=== PATIENT | male | born 1940 | race Caucasian/White ===

== ENCOUNTER 2017-10-22 07:37 | Inpatient (IN) | payer MEDICARE, OTHER, SELFPAY ==
[2017-10-22] VITALS (17 sets, daily range): BP systolic 111–205; BP diastolic 83–122; PULSE 67–85; RESP 14–18; TEMP 35.6–36.6; O2SAT 94–98; BMI 25.6; BMI 24.5; BMI 24.6
--- NOTE | 2017-10-22 07:53 | CT_ITS ---
STUDY: CT BRAIN WITHOUT CONTRAST REASON FOR EXAM: Male, 77 years old. Weakness. Hypertension. RADIATION DOSAGE (If Supplied By Facility): CTDIvol = ( 44.99 ) mGy, DLP = ( 812.98 ) mGycm TECHNIQUE: Transaxial CT imaging of the brain was performed without administration of intravenous contrast material. Individualized dose optimization techniques were used for this CT. COMPARISON: None. FINDINGS: Normal soft tissue structures. Normal calvarium. There is mild cerebral atrophy with widening of the extra-axial spaces and ventricular dilatation. There are areas of decreased attenuation within the white matter tracts of the supratentorial brain, consistent with microvascular disease changes. Normal basal ganglia and thalami. Normal brainstem. There is mild cerebellar atrophy. There is no intracranial hemorrhage. There are no findings of an acute ischemic infarction. Atherosclerotic calcification of the cavernous portions of the internal carotid arteries bilaterally. Normal visualized paranasal sinuses. CT/Brain/Head without Contrast IMPRESSION: Chronic involutional changes of the brain. Electronically Signed: Tom Garcia MD at 8:42 EDT Tel [phone], Service support ,
--- NOTE | 2017-10-22 07:53 | EKG12_ITS ---
Test Reason : Blood Pressure : / mmHG Vent. Rate : 084 BPM Atrial Rate : 084 BPM P-R Int : 134 ms QRS Dur : 090 ms QT Int : 408 ms P-R-T Axes : 029 019 000 degrees QTc Int : 482 ms Normal sinus rhythm ST & T wave abnormality, consider inferior ischemia Abnormal ECG Confirmed by MARY RENEE, SHARRON ([id number]), rewrite editor PIYUSH ALONSO ([id number] on 10/23/2017 1:51:23 PM Referred By: MARITZA Confirmed By:SHARRON HERNANDEZ MD
--- NOTE | 2017-10-22 07:58 | NURSING ---
NO OLD EKGS
[2017-10-22 08:00] LABS: Bedside Glucose 155 mg/dL (70-110)
[2017-10-22 08:14] LABS: Absolute Lymphocyte Count 0.79 X10^3/ul (0.83-4.51); Absolute Neutrophil Count 8.2 X10^3/uL (2.0-7.7); Basophil# 0.03 X10^3/uL; Basophil% 0.3 % (0-1); Eosinophil# 0.03 X10^3/uL; Eosinophils% 0.3 % (0-5); Hematocrit 52.8 % (40-54); Lymphocyte # 0.79 X10^3/ul (4.0); Mean Corp Hgb Conc 34.7 g/gl (32-36); Mean Corpuscular Hgb 32.5 pg (27.0-32.0); Mean Corpuscular Volume 93.8 fL (80-94); Mean Platelet Vol. 9.6 fl (6.2-12.0); Monocyte# 0.71 X10^3/uL; Monocyte% 7.2 % (0-10); Neutrophil # 8.22 X10^3/uL (2.7-7.7); Neutrophil % 83.8 % (47-70); Platelet Count 245 K/mm3 (150-450); RBC Distribution Width CV 13.1 % (11.6-14.6); RBC Distribution Width SD 44.7 fl (35.1-43.9); Red Blood Count 5.63 M/mm3 (4.6-6.2); White Blood Count 9.8 K/mm3 (4.4-11.0)
[2017-10-22 08:15] LABS: POSITIVE COUNT NO; POSITIVE DIFFERENTIAL NO; POSITIVE MORPHOLOGY NO
[2017-10-22 08:17] LABS: Hemoglobin 18.3 g/dl (13.0-16.5)
[2017-10-22 08:18] LABS: Prothrombin Time (Protime)PT. 13.4 SECONDS (11.7-14.9)
[2017-10-22 08:19] LABS: Partial Thromboplast Time 24.1 Seconds (24.1-36.2)
--- NOTE | 2017-10-22 08:20 | RAD_ITS ---
STUDY: X-RAY CHEST REASON FOR EXAM: Male, 77 years old. Hypertension. Neurological symptoms. TECHNIQUE: Single AP portable view of the chest. COMPARISON: None. FINDINGS: EKG electrodes are seen. Mild increased markings at the lung bases slightly worse on the left side suggestive of either linear atelectasis and/or scarring. Calcified granulomas. Mild degree of pleural thickening along the lateral aspects of both hemithoraces. This may represent changes secondary to prior trauma and healed bilateral rib fractures. There is moderate cardiac enlargement. Normal mediastinum and elizabeth. Normal visualized pulmonary arteries. There is atherosclerotic calcification of the aortic arch with tortuosity. Normal visualized thoracic spine. Healed bilateral rib fractures. There is no demonstrated abnormality of the visualized soft tissue structures of the upper abdomen. RAD/Chest 1 View IMPRESSION: Cardiomegaly. Mild increased markings at the lung bases suggestive of linear atelectasis and/or scarring. Electronically Signed: Tom Garcia MD at 8:43 EDT Tel [phone], Service support ,
--- NOTE | 2017-10-22 08:20 | ED.VISSUMM ---
- ER Visit Summary Date of Service: 10/22/17 Chief Complaint: Trouble walking History of Present Illness: The patient is a 77 M who has history of hypertension was brought to the emergency department because of trouble walking. He saw a mid-level yesterday for low back pain. His blood pressure was elevated at that time. He does have history of hypertension. He states he is compliant with his medication. He denies any paresthesia, anesthesia motor weakness upper lower extremity. He presently has no back pain. The back pain is positional. He denies headache, blurred vision, loss of vision or double vision. He denies trouble with speech or swallowing. He denies chest pain, dyspnea on exertion, orthopnea or PND. He denies cough or shortness of breath at rest. He denies nausea, vomiting or diarrhea. He denies dysuria, frequency, urgency or hematuria. He denies prior history of stroke. Please read written note for complete detail Physical Examination: Vital signs noted and remarkable for blood pressure 244/122. Head is atraumatic normocephalic. Pupils are equal round reactive. Extraocular muscles are intact. TMs are pearly white with landmarks noted. Nares patent with no drainage. Posterior pharynx without erythema or exudate. Uvula is midline. There is no dysphonia or dysphasia. Trachea is midline. There is no stridor with auscultation of the neck. Heart is regular without murmur, gallop or rub. S1 and S2 are normal. Lungs are clear to auscultation with good movement of air bilaterally. Abdomen is soft and nontender. There is no guarding or peritoneal findings. There is no palpable pulsatile mass. There is no abdominal bruit. Agustin sign is negative. Negative Rovsing sign. There is no evidence of inguinal or umbilical hernia. Upper distal and lower distal pulses are palpable and symmetric. He is alert and oriented ?3. Motor deficit noted left upper and left lower extremity. Finger-nose to finger was abnormal on the left and out of proportion to the amount of weakness he is experiencing. Sensation is intact. There is no clonus or Babinski sign. Cranial 2 through 12 are intact. He does slur his words occasionally. The registration person has known him for some time and states that is abnormal. He apparently had problem with fluency for some time. NIH is 4. Test Results: EKG sinus rhythm rate of [address]-T wave changes noted. CBC is remarkable for H&H of 18.3 and 52.8. B GT was 155. CT of the head without contrast reveals no acute pathology. Emergency Department Course and Treatment: Stroke order set was initiated. Chest x-ray was obtained to evaluate the mediastinum. Patient's back pain is atypical and not suggestive of aortic dissection. If blood pressure remains elevated will treat with labetalol. Patient and daughter were informed he would need admission and further workup. Treatment Plan: PCU for further testing and monitoring Disposition: 23 hour observation Impression: 1. Right hemispheric stroke 2. Hypertensive urgency This note was generated with [employer] dictation software. It may contain incorrect words, spelling, and punctuation that were not noted in review of the chart prior to signing ED Disposition - Plan for ED Patient: Disposition: Acute Care Hospital [facility] Chief Complaint: Neuro S/Sx
[2017-10-22 08:28] LABS: Anion Gap 10 (5-15); BUN 8 mg/dL (7-18); BUN/Creat Ratio 8.7 RATIO (10-20); Calcium,Total 9.1 mg/dL (8.5-10.1); Chloride 101 mmol/L (98-107); Creatinine, Serum 0.92 mg/dL (0.70-1.30); EST Glomerular Filtration Rate 85 mL/min (>60); Est Glom Filt Rate - Afr Amer 103 mL/min (>60); Estimated Creatinine Clearance 74.98 ml/min; Glucose 151 mg/dL (74-106); Potassium 3.6 mmol/L (3.5-5.1); Sodium Level 138 mmol/L (136-145)
--- NOTE | 2017-10-22 09:12 | NURSING ---
PCU CVA, HYPERTENSION KOTSONIS OBS
[2017-10-22] MEDS: 0.9% Normal Saline 1,000 ML 100 ML IV (12:14)
[2017-10-22] MEDS: Enoxaparin 40 MG/0.4 ML Syringe SC (12:14)
--- NOTE | 2017-10-22 14:41 | CT_ITS ---
STUDY: CTA NECK WITH CONTRAST REASON FOR EXAM: Male, 77 years old. CVA RADIATION DOSAGE (If Supplied By Facility): CTDIvol = ( 22.08 ) mGy, DLP = ( 701.12 ) mGycm TECHNIQUE: CT angiography with multi-detector data acquisition was performed from the aortic arch to the skull base following intravenous administration of 100 ml of Isovue 370 contrast. MIP images were reconstructed from the axial data set. Post-processing of the angiographic images was performed, with multiplanar reformation and 3D reconstruction. Individualized dose optimization techniques were used for this CT. COMPARISON: CT brain from today FINDINGS: AORTIC ARCH: Normal visualized aortic arch. Normal origins of the brachiocephalic, left common carotid, and left subclavian arteries. RIGHT CAROTID ARTERIES: Normal right common carotid artery (CCA). There is moderate atherosclerotic plaque formation with moderate narrowing of the right carotid bulb. There is mild atherosclerotic plaque formation of the origin of the right internal carotid artery with less than 50% cross sectional diameter stenosis. Normal visualized cervical portion of the right internal carotid artery. Normal origin of the right external carotid artery (ECA). LEFT CAROTID ARTERIES: Normal left common carotid artery (CCA). There is moderate atherosclerotic plaque formation with moderate narrowing of the carotid bulb. There is mild atherosclerotic plaque formation of the origin of the left internal carotid artery with less than 50% cross sectional diameter stenosis. Normal visualized cervical portion of the left internal carotid artery. Normal origin of the left external carotid artery (ECA). VERTEBRAL ARTERIES: The v1 segment of the right vertebral artery is occluded or nearly occluded. It appears to reconstitute somewhat in the V2 segment, with some flow noted in the v3 and V4 segments. There is focal calcific and mixed plaque at the origin of the left vertebral artery causing moderate stenosis. The remainder of the left vertebral artery appears normal. CT/CTA Neck W/WO Contrast IMPRESSION: Less than 50% stenosis proximal internal carotid arteries bilaterally due to mixed plaque. Occlusion or near occlusion proximal vertebral artery on the right. Moderate focal stenosis at the origin of the left vertebral artery. Electronically Signed: Bhavin Jonas MD at 16:12 EDT , Service support ,
--- NOTE | 2017-10-22 14:47 | PCM.HP.STD ---
Problem List (1) HTN (hypertension) Status: Chronic (2) CVA (cerebral vascular accident) Status: Acute History of Present Illness Date of Admission: 10/22/17 Chief Complaint: Numbness, slurred speech and weakness The patient is a 77 year old M with a h/o HTN on norvasc who follows with a PCP every 6 months presenting with over a 12 hour h/o right hand numbness and b/l LE weakness. Prior to this episode he had been in pretty good health only taking norvasc. Also his daughter had noticed some slurred speech this morning over the phone though admits that he is back to his baseline this afternoon. Also connie actually saw his doctor the day before his admission for paraspinal thoracic pain without radiation. In the ER. NIH was [address] brain was negative. He was admitted to r/o stroke. Past Medical History Past Medical History (Chronic Problems): Chronic Problems HTN (hypertension) (Chronic) Allergies No Known Allergies Allergy (Verified 10/22/17 07:40) Home Medications: Ambulatory Orders Medication Instructions Recorded Amlodipine Besylate [Amlodipine 2.5 mg PO DAILY 05/07/16 Besylate] Surgical History: no surgical history Lives: Alone Smoking Status: Former smoker Alcohol: Occasional - 6 beers daily Drugs: None - *Family History Maternal History Items: Heart Disease Paternal History Items: Heart Disease Review of Systems Constitutional: Denies: Chills, Fever, Weight Change HEENT: Reports: - - Choking while eating Cardiovascular: Denies: Chest Pain, Palpitations Respiratory: Denies: Cough, Shortness of breath at rest, Sputum production Gastrointestinal: Denies: Abdominal Pain, Nausea, Vomiting Genitourinary: Denies: Dysuria Musculoskeletal: Denies: Joint Pain, Joint Tenderness Skin: Denies: Rash, Wounds Neurological: Reports: Numbness, - - b/l LE weakness Psychiatric: Denies: Anxiety, Depression Hematologic/ Lymphatic: Denies: Easy Bruising, Easy Bleeding VTE Information - Inpt Only VTE Present on Admission: No Patient Problems: Active and Suspected Problems CVA (cerebral vascular accident) (Acute) - Physical Exam General: Alert, Oriented x3, Cooperative, No apparent distress HEENT: Atraumatic, EOMI, Normocephalic Oral: Moist Mucosa Neck: Supple, No JVD, Negative Carotid Bruits Lungs: Clear to auscultation, Normal air movement, No rhonchi, No wheeze, No rales Cardiovascular: Regular rate, Regular Rhythm, Normal S1, Normal S2, No murmurs Abdomen: Soft, Non Tender, Non-Distended, No Hepato-splenomegaly Extremities: No edema, Capillary Refill Less than 3 Seconds Skin: No rashes, No breakdown Musculoskeletal: No Tenderness to Palpation of Joints or Extremities Neurological: Cranial nerves II-XII grossly intact, Sensory exam intact to light touch and pain, - - 5/5 in his UE, 4-/5 on both hip flexors, not ataxic, Psych/Mental Status: Normal Affect, Appropriate Vital Signs Temp Pulse Resp BP Pulse Ox 97.6 F L 69 18 183/97 H 94 10/22/17 13:15 10/22/17 13:15 10/22/17 13:15 10/22/17 13:15 10/22/17 13:15 Oxygen Flow Rate (L/min) 2 Oxygen Delivery Method Room Air Weight: 186 lb 4.65 oz Body Mass Index (BMI) 24.5 Assessment/Plan All Active Problems CVA (cerebral vascular accident) (Acute) 1. r/o CVA/HTN - He was unable to lie flat for the MRI head and neck - Will obtain CTA neck and repeat a CT head in the am - In the meantime will start aspirin and a statin - Permissive hypertension for the next 24 hours with q4 neurochecks - Hold norvasc - PT/OT and speech - echo is pending, though given his orthopnea, may need lasix 2. Alcohol use - drinks 6 beers daily - will start the CIWA protocol DVT: Lovenox Diet: Cardiac Code Visit Inpatient E&M: 82324 Init Hosp L3
[2017-10-22] MEDS: Atorvastatin Calcium 40 MG Tablet PO (21:16)
[2017-10-23] VITALS (60 sets, daily range): BP systolic 90–227; BP diastolic 59–121; PULSE 72–116; RESP 12–22; TEMP 34.9–37.1; O2SAT 92–100; BMI 24.5
--- NOTE | 2017-10-23 05:55 | CT_ITS ---
STUDY: CT BRAIN WITHOUT CONTRAST REASON FOR EXAM: Male, 77 years old. Increased confusion and weakness RADIATION DOSAGE (If Supplied By Facility): CTDIvol = ( 44.99 ) mGy, DLP = ( 863.60 ) mGycm TECHNIQUE: Transaxial CT imaging of the brain was performed without administration of intravenous contrast material. Individualized dose optimization techniques were used for this CT. COMPARISON: None. FINDINGS: There is no scalp hematoma and no calvarial fractures. There is no intra or extra-axial hemorrhage or tumor mass and no indication of an acute infarction. There is generalized brain atrophy. The orbits, paranasal sinuses and mastoid air cells are normal CT/Brain/Head without Contrast IMPRESSION: Generalized brain atrophy. No acute findings in the brain Electronically Signed: Vaibhav Jaimes, at 6:08 EDT Tel , Service support ,
[2017-10-23 06:39] LABS: Anion Gap 11 (5-15); BUN 12 mg/dL (7-18); BUN/Creat Ratio 14.5 RATIO (10-20); Calcium,Total 9.1 mg/dL (8.5-10.1); Chloride 102 mmol/L (98-107); Cholesterol 219 mg/dL (200); Creatinine, Serum 0.83 mg/dL (0.70-1.30); EST Glomerular Filtration Rate 96 mL/min (>60); Est Glom Filt Rate - Afr Amer 116 mL/min (>60); Estimated Creatinine Clearance 85.57 ml/min; Glucose 138 mg/dL (74-106); High Density Lipoprotein 46 mg/dL; Potassium 4.1 mmol/L (3.5-5.1); Sodium Level 139 mmol/L (136-145); Triglycerides 151 mg/dL; Very Low Density Lipoprotein 30 mg/dL (5-40)
[2017-10-23 06:51] LABS: Absolute Lymphocyte Count 0.53 X10^3/ul (0.83-4.51); Absolute Neutrophil Count 11.4 X10^3/uL (2.0-7.7); Basophil# 0.01 X10^3/uL; Basophil% 0.1 % (0-1); Hematocrit 52.5 % (40-54); Lymphocyte # 0.53 X10^3/ul (4.0); Lymphocyte % 4.2 % (19-41); Mean Corp Hgb Conc 34.7 g/gl (32-36); Mean Corpuscular Hgb 32.3 pg (27.0-32.0); Mean Corpuscular Volume 93.3 fL (80-94); Mean Platelet Vol. 9.4 fl (6.2-12.0); Monocyte# 0.73 X10^3/uL; Monocyte% 5.8 % (0-10); Neutrophil # 11.37 X10^3/uL (2.7-7.7); Neutrophil % 89.5 % (47-70); Platelet Count 276 K/mm3 (150-450); RBC Distribution Width CV 13.2 % (11.6-14.6); RBC Distribution Width SD 44.4 fl (35.1-43.9); Red Blood Count 5.63 M/mm3 (4.6-6.2); White Blood Count 12.7 K/mm3 (4.4-11.0)
[2017-10-23 06:57] LABS: Differential Indicated SCAN CRITERIA MET; Hemoglobin 18.2 g/dl (13.0-16.5); POSITIVE COUNT NO; POSITIVE DIFFERENTIAL YES; POSITIVE MORPHOLOGY NO
[2017-10-23 07:11] LABS: Bedside Glucose 198 mg/dL (70-110)
--- NOTE | 2017-10-23 07:17 | MRI_ITS ---
STUDY: MRI BRAIN WITHOUT CONTRAST REASON FOR EXAM: Male, 77 years old. CVA. TECHNIQUE: Standardized multiplanar fat and water weighted pulse sequences were obtained. COMPARISON: None. FINDINGS: There is moderate cerebral atrophy with widening of the extra-axial spaces and ventricular dilatation. There are a limited number of small white matter hyperintensities, distributed throughout the deep white matter tracts of the cerebral hemispheres, consistent with mild chronic white matter ischemic changes. There is no evidence for recent intracranial ischemia or other cause of cytotoxic edema on diffusion weighted imaging (DWI). Normal T2* images of the brain without demonstrated susceptibility artifact. There is no demonstrated hemosiderin stain. Normal bilateral basal ganglia. Normal thalami. There is no extra-axial fluid accumulation. Normal flow voids within the major intracranial circulation suggesting patency by spin echo criteria. Normal sella turcica, pituitary gland, infundibular stalk, optic chiasm and hypothalamus. Normal tectal plate and pineal gland. Normal midbrain, milli and medulla. Normal cerebellum. There are large basal cisterns. 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 Normal bilateral internal auditory canals. No demonstrated orbital abnormality, within the constraints of a routine brain study. Normal visualized paranasal sinuses. Normal calvarium and skull base. Normal visualized soft tissue structures. Normal visualized upper cervical spine. MRI/Brain without Contrast IMPRESSION: 1. Involutional changes of the brain, as described above. 2. No MR evidence for acute infarct. N.B. : The above information has been verbally conveyed by Aimee Osei MD to Mateo Mckeon on 10/23/2017 08:24:08 (ET). Electronically Signed: Aimee Osei MD at 8:22 EDT , Service support ,
--- NOTE | 2017-10-23 07:21 | PCM.PN.BLA ---
Progress Note Responded to a rapid response. Patient who presented with stroke like symptoms became unresponsive. MRI of brain ordered because patient had CT scan an hour later. Stroke team will follow up
--- NOTE | 2017-10-23 08:00 | NURSING ---
Patient arrived to ICU unresponsive. Patient emergently intubated at 0810. Positive color change and equal b/l breath sounds. No sedation given for intubation. See further documentation in NIH and vitals.
--- NOTE | 2017-10-23 08:11 | NURSING ---
0705 pt's family came to nurses station stating pt was less responsive than usual. This RN entered room and pt was awake but non verbal and would not follow commands. [employer] called
--- NOTE | 2017-10-23 08:12 | MRI_ITS ---
STUDY: MRA NECK WITH AND WITHOUT CONTRAST REASON FOR EXAM: Male, 77 years old. Unresponsive patient. TECHNIQUE: 3-D [id number]-tonmuz (TOF) imaging was performed in an 1.5 T MRI scanner. 9 ml of Gadavist was administered for the contrast enhanced images. The unenhanced images are limited by patient motion. COMPARISON: MRA of the head dated October 23, 2017 and MRI of the brain dated October 23, 2017. FINDINGS: RIGHT CAROTID ARTERIES: Normal right common carotid artery (CCA). There is mild atherosclerotic plaque formation with minimal narrowing of the right carotid bulb. There is mild atherosclerotic plaque formation of the origin of the right internal carotid artery with less than 50% cross sectional diameter stenosis. There is atherosclerotic tortuous elongation of the cervical portion of the right internal carotid artery. Normal origin of the right external carotid artery (ECA). LEFT CAROTID ARTERIES: Normal left common carotid artery (CCA). There is mild atherosclerotic plaque formation with minimal narrowing of the left carotid bulb. There is mild atherosclerotic plaque formation of the origin of the left internal carotid artery with less than 50% cross sectional diameter stenosis. There is atherosclerotic tortuous elongation of the cervical portion of the left internal carotid artery. Normal origin of the left external carotid artery (ECA). VERTEBRAL ARTERIES: There is no evidence for normal flow enhancement of the right cervical vertebral artery suggesting thrombosis. The left vertebral artery has normal antegrade flow and is dominant.. MRI/MRA Neck WITH and W/O Contrast IMPRESSION: 1. 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 2. Nonhemodynamically significant stenoses of the left vertebral artery, common carotid and internal carotid arteries. N.B. : The above information has been verbally conveyed by Aimee Osei MD to Mateo Manzo on 10/23/2017 10:07:17 (ET). Electronically Signed: Aimee Osei MD at 10:01 EDT , Service support ,
--- NOTE | 2017-10-23 08:12 | MRI_ITS ---
STUDY: MRA OF THE HEAD WITHOUT CONTRAST REASON FOR EXAM: Male, 77 years old. Unresponsive patient. TECHNIQUE: 3-D [id number]-[id number]-gntpum (TOF) imaging was performed with MIPs. The study was performed unenhanced. COMPARISON: MRI of the brain dated October 23, 2017. FINDINGS: Normal bilateral petrous carotid arteries. Normal right cavernous carotid artery with a normal supraclinoid bifurcation. Normal left cavernous carotid artery with a normal supraclinoid bifurcation. Normal right A1 segments of the anterior cerebral artery. Normal left A1 segments of the anterior cerebral artery. There is non-visualization of the anterior communicating artery (ACOM). Normal bilateral A2 segments of the anterior cerebral arteries. There is irregularity of the right M1 and M2 branches with minimal luminal narrowing, suggesting atherosclerotic plaque formation, without an occlusion. There is irregularity of the left M1 and M2 branches with minimal luminal narrowing, suggesting atherosclerotic plaque formation, without an occlusion. There is non-visualization of the right posterior communicating artery (PCOM). There is non-visualization of the left posterior communicating artery (PCOM). There is a dominant left vertebral artery. The right intracranial vertebral artery is not visualized suggesting possible thrombosis. Normal basilar artery with a normal basilar bifurcation. Only the right superior cerebellar artery is well seen. The left superior cerebral artery appears to be truncated suggesting possible thrombosis. Normal bilateral P1, P2 and visualized P3 segments of the posterior cerebral arteries. There is no demonstrated aneurysm of the [place]. There is involutional changes of the brain. MRI/MRA Head ONLY without Contrast IMPRESSION: 1. Nonvisualization of the right intradural vertebral artery suggesting possible thrombosis. 2. 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 3. No MRA evidence for aneurysm. N.B. : The above information has been verbally conveyed by Aimee Osei MD to Mateo LAWSON, on 10/23/2017 10:08:03 (ET). Electronically Signed: Aimee Osei MD at 9:55 EDT , Service support ,
--- NOTE | 2017-10-23 08:32 | PCM.CON.CC ---
Reason for Consult Date of Consultation: 10/23/17 Reason for Consultation: Encephalopathy History of Present Illness: The patient is a 77-year-old male, with a history as outlined below, who presented to the emergency department on October 22 with complaints of right hand numbness and bilateral lower extremity weakness, which per documentation, began 12 hours prior to his presentation to the hospital. The patient was notably hypertensive on presentation with a blood pressure in the emergency department documented to be 244/122 mmHg. He had an NIH score of 4. It appears that the patient was treated with labetalol and admitted to the progressive care unit for workup of a potential right hemispheric stroke and hypertensive urgency. The patient was started on medical therapy with aspirin and statin in the PCU. 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 It appears that throughout his hospitalization, the patient's blood pressures have fluctuated greatly from systolics greater than 200 mmHg to his low is 165 mmHg. Although a permissive hypertension strategy was being employed by the hospitalist, does not appear that pressures were being treated, even when they exceeded 200 mmHg. During the logging specialist hours of October 23, a stroke team was called as the patient was noted to be increasingly lethargic and less responsive than previous. His systolic blood pressures were noted to be in the 220s. The patient was taken for a stat MRI, which revealed only chronic involutional changes of the brain. However, nursing staff reported that during the imaging study, the patient would no longer respond to any form of stimulation and went on to develop anisocoria. The patient was brought urgently to the medical intensive care unit, where he was emergently intubated for airway protection. Bedside Intubation Note: The patient was placed in appropriate sniffing position. He was preoxygenated with 100% oxygen via bag valve mask. No sedating medications were utilized, given the patient's state of encephalopathy. Video laryngoscopy was performed with a grade 3 view noted. A #7.5 endotracheal tube was placed 22 cm of the lips. Past Medical History Past Medical History (Chronic Problems): Chronic Problems HTN (hypertension) (Chronic) Allergies No Known Allergies Allergy (Verified 10/22/17 07:40) Home Medications: Ambulatory Orders Medication Instructions Recorded Amlodipine Besylate [Amlodipine 2.5 mg PO DAILY 05/07/16 Besylate] Surgical History: no surgical history Lives: Alone Smoking Status: Former smoker Alcohol: Occasional - 6 beers daily Drugs: None - *Family History Maternal History Items: Heart Disease Paternal History Items: Heart Disease Review of Systems Unable to obtain accurate/complete ROS d/t: Due to current encephalopathic state Patient Problems: Active and Suspected Problems CVA (cerebral vascular accident) (Acute) Unresponsive episode (Acute) Objective: The patient's most recent lab work, culture data and imaging studies have all been personally reviewed. Initial head CT dated October 22 was negative, only revealing chronic involutional changes. Neck CTA dated October 22 revealed less than 50% stenosis of the proximal internal carotid arteries bilaterally, near complete occlusion of the proximal vertebral artery on the right and moderate focal stenosis at the origin of the left vertebral artery. Brain MRI dated October 23 revealed involutional changes of the brain without MR evidence of acute infarction. Surface echocardiogram revealed normal LV size and function with an ejection fraction of 55% and evidence of stage I diastolic dysfunction. - Physical Exam General: - - The patient is currently nonresponsive to verbal and tactile stimulation. HEENT: Atraumatic, Normocephalic, - - Anisocoria is present Oral: Dry Mucosa Neck: Supple, No Nodes, Trachea Midline Lungs: No rhonchi, No wheeze, No rales, Diminished, Tachypneic Cardiovascular: Normal S1, Normal S2, No murmurs, Tachycardic Abdomen: Bowel Sounds Present, Soft, Non Tender Extremities: No clubbing, No cyanosis, No edema Skin: No breakdown Musculoskeletal: No Tenderness to Palpation of Joints or Extremities Lymphatic: No Cervical, Supraclavicular, or Inguinal Adenopathy Neurological: - - Obtunded. Nonresponsive to verbal or tactile stimulation. Dilated right fixed pupil. There was no gag reflex noted with intubation. Vital Signs Temp Pulse Resp BP Pulse Ox 97.3 F L 116 H 18 227/121 H 93 10/23/17 06:57 10/23/17 07:06 10/23/17 07:06 10/23/17 07:06 10/23/17 07:06 Oxygen Flow Rate (L/min) 2 Oxygen Delivery Method Nasal Cannula Weight: 186 lb 4.65 oz Body Mass Index (BMI) 24.5 Finger Stick Blood Glucose 198 Intake and Output for Last 24 Hours 10/21/17 10/22/17 10/23/17 23:59 23:59 23:59 Intake Total 480 / 480 Balance 480 / 480 Laboratory Tests Past 24 Hrs 10/23/17 10/23/17 05:20 05:20 WBC 12.7 H RBC 5.63 Hgb 18.2 H* Hct 52.5 MCV 93.3 MCH 32.3 H MCHC 34.7 RDW 13.2 RDW Differential 44.4 H Plt Count 276 MPV 9.4 Immature Gran % (Auto) 0.400 Neut % (Auto) 89.5 H Lymph % (Auto) 4.2 L [place] % (Auto) 5.8 Eos % (Auto) 0.0 Baso % (Auto) 0.1 Absolute Neuts (auto) 11.4 H Absolute Lymphs (auto) 0.53 L Total Counted Not Reportable Diff Path Review May foll Sodium 139 Potassium 4.1 Chloride 102 Carbon Dioxide 26.0 Anion Gap 11 BUN 12 Creatinine 0.83 Estim Creat Clear Calc 85.57 Est GFR (MDRD) Af Amer 116 Est GFR (MDRD) Non-Af 96 BUN/Creatinine Ratio 14.5 Glucose 138 H Calcium 9.1 Triglycerides 151 Cholesterol 219 H LDL Cholesterol 143 H VLDL Cholesterol 30 HDL Cholesterol 46 POC Glucose 10/23/17 07:08 POC Glucose 198 H Clinical Impression(s) from Imaging Studies Brain CT 10/22/17 07:53 IMPRESSION: Chronic involutional changes of the brain. Electronically Signed: Tom Garcia MD at 8:42 EDT Tel [phone], Service support , Chest X-Ray 10/22/17 08:20 IMPRESSION: Cardiomegaly. Mild increased markings at the lung bases suggestive of linear atelectasis and/or scarring. Electronically Signed: Tom Garcia MD at 8:43 EDT Tel [phone], Service support , Neck CTA 10/22/17 14:41 IMPRESSION: Less than 50% stenosis proximal internal carotid arteries bilaterally due to mixed plaque. Occlusion or near occlusion proximal vertebral artery on the right. Moderate focal stenosis at the origin of the left vertebral artery. Electronically Signed: Bhavin Jonas MD at 16:12 EDT , Service support , Brain CT 10/23/17 05:55 IMPRESSION: Generalized brain atrophy. No acute findings in the brain Electronically Signed: Vaibhav Jaimes, at 6:08 EDT Tel , Service support , Brain MRI 10/23/17 07:17 IMPRESSION: 1. Involutional changes of the brain, as described above. 2. No MR evidence for acute infarct. N.B. : The above information has been verbally conveyed by Aimee Osei MD to Mateo Mckeon on 10/23/2017 08:24:08 (ET). Electronically Signed: Aimee Osei MD at 8:22 EDT , Service support , Assessment/Plan Active and Suspected Problems CVA (cerebral vascular accident) (Acute) Unresponsive episode (Acute) RECOMMENDATIONS: 1. Obtain stat MRA head and neck. 2. Neurology has been consulted and will evaluate patient. 3. Start nicardipine drip and target a systolic blood pressure of 185 mmHg. 4. Obtain arterial blood gas in 1 hour, along with plain film chest x-ray to confirm endotracheal tube placement. 5. Propofol for sedation can be utilized, if necessary, to maintain a RASS of -1 to 1. 6. Obtain stat EEG as well. IMPRESSIONS: 1. Acute encephalopathy Differential etiologies include ischemic CVA, nonconvulsive status epilepticus and reversible posterior leukoencephalopathy syndrome. Initial MRI this morning revealed no acute CVA. The case was discussed with neurology and MRA head and neck is currently pending. If negative, a stat EEG will be obtained. The patient will be started on a nicardipine drip to titrate to a systolic blood pressure of 185 mmHg. We will also plan to obtain an arterial blood gas upon the patient's return to the medical intensive care unit. 2. Acute respiratory failure The patient was emergently intubated on the morning of October 23 for airway protection due to #1. Plan to obtain arterial blood gas in 1 hour. Minimize sedation and utilize propofol, if needed to maintain a RASS of -1 to 1. Obtain plain film chest x-ray. 3. Hypertensive emergency The patient will be placed on a nicardipine drip to maintain his systolic blood pressure around 185 mmHg. Slow, cautious lowering the patient's baseline blood pressure can be undertaken over the next 24 hours. He is reportedly on a number of antihypertensives as an outpatient, and per his family, he is compliant with their use. 4. Polycythemia Unclear etiology and chronicity. We will need to obtain additional history regarding the patient's smoking history and any known hypoxemia. In addition, I have asked the patient's family to obtain prior blood work results from the patient's PCP for comparison. 5. Personal history of alcohol dependence The patient reportedly drinks 6 beers daily but is never had significant withdrawal symptoms and/or withdrawal seizures. Initiate CIWA protocol and monitor for any signs of withdrawal. TIME: 85 minutes of critical care time, inclusive of procedures, was spent addressing the patient's acute encephalopathy, acute respiratory failure, hypertensive emergency, polycythemia, history of alcohol dependence, review of all data and collaboration with the care team. ([id number]) Code Visit Procedures: 80953 Critial Care Addl 30 Min 9xxxx: [id number] Critical care first hour
--- NOTE | 2017-10-23 08:36 | CON.PCM_ITS ---
Reason for Consult Date of Consultation: 10/23/17 Reason for Consultation: Encephalopathy History of Present Illness: The patient is a 77-year-old male, with a history as outlined below, who presented to the emergency department on October 22 with complaints of right hand numbness and bilateral lower extremity weakness, which per documentation, began 12 hours prior to his presentation to the hospital. The patient was notably hypertensive on presentation with a blood pressure in the emergency department documented to be 244/122 mmHg. He had an NIH score of 4. It appears that the patient was treated with labetalol and admitted to the progressive care unit for workup of a potential right hemispheric stroke and hypertensive urgency. The patient was started on medical therapy with aspirin and statin in the PCU. 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 It appears that throughout his hospitalization, the patient's blood pressures have fluctuated greatly from systolics greater than 200 mmHg to his low is 165 mmHg. Although a permissive hypertension strategy was being employed by the hospitalist, does not appear that pressures were being treated, even when they exceeded 200 mmHg. During the economics lecturer hours of October 23, a stroke team was called as the patient was noted to be increasingly lethargic and less responsive than previous. His systolic blood pressures were noted to be in the 220s. The patient was taken for a stat MRI, which revealed only chronic involutional changes of the brain. However, nursing staff reported that during the imaging study, the patient would no longer respond to any form of stimulation and went on to develop anisocoria. The patient was brought urgently to the medical intensive care unit, where he was emergently intubated for airway protection. Bedside Intubation Note: The patient was placed in appropriate sniffing position. He was preoxygenated with 100% oxygen via bag valve mask. No sedating medications were utilized, given the patient's state of encephalopathy. Video laryngoscopy was performed with a grade 3 view noted. A #7.5 endotracheal tube was placed 22 cm of the lips. Past Medical History Past Medical History (Chronic Problems): Chronic Problems HTN (hypertension) (Chronic) Allergies No Known Allergies Allergy (Verified 10/22/17 07:40) Home Medications: Ambulatory Orders Medication Instructions Recorded Amlodipine Besylate [Amlodipine 2.5 mg PO DAILY 05/07/16 Besylate] Surgical History: no surgical history Lives: Alone Smoking Status: Former smoker Alcohol: Occasional - 6 beers daily Drugs: None - *Family History Maternal History Items: Heart Disease Paternal History Items: Heart Disease Review of Systems Unable to obtain accurate/complete ROS d/t: Due to current encephalopathic state Patient Problems: Active and Suspected Problems CVA (cerebral vascular accident) (Acute) Unresponsive episode (Acute) Objective: The patient's most recent lab work, culture data and imaging studies have all been personally reviewed. Initial head CT dated October 22 was negative, only revealing chronic involutional changes. Neck CTA dated October 22 revealed less than 50% stenosis of the proximal internal carotid arteries bilaterally, near complete occlusion of the proximal vertebral artery on the right and moderate focal stenosis at the origin of the left vertebral artery. Brain MRI dated October 23 revealed involutional changes of the brain without MR evidence of acute infarction. Surface echocardiogram revealed normal LV size and function with an ejection fraction of 55% and evidence of stage I diastolic dysfunction. - Physical Exam General: - - The patient is currently nonresponsive to verbal and tactile stimulation. HEENT: Atraumatic, Normocephalic, - - Anisocoria is present Oral: Dry Mucosa Neck: Supple, No Nodes, Trachea Midline Lungs: No rhonchi, No wheeze, No rales, Diminished, Tachypneic Cardiovascular: Normal S1, Normal S2, No murmurs, Tachycardic Abdomen: Bowel Sounds Present, Soft, Non Tender Extremities: No clubbing, No cyanosis, No edema Skin: No breakdown Musculoskeletal: No Tenderness to Palpation of Joints or Extremities Lymphatic: No Cervical, Supraclavicular, or Inguinal Adenopathy Neurological: - - Obtunded. Nonresponsive to verbal or tactile stimulation. Dilated right fixed pupil. There was no gag reflex noted with intubation. Vital Signs Temp Pulse Resp BP Pulse Ox 97.3 F L 116 H 18 227/121 H 93 10/23/17 06:57 10/23/17 07:06 10/23/17 07:06 10/23/17 07:06 10/23/17 07:06 Oxygen Flow Rate (L/min) 2 Oxygen Delivery Method Nasal Cannula Weight: 186 lb 4.65 oz Body Mass Index (BMI) 24.5 Finger Stick Blood Glucose 198 Intake and Output for Last 24 Hours 10/21/17 10/22/17 10/23/17 23:59 23:59 23:59 Intake Total 480 / 480 Balance 480 / 480 Laboratory Tests Past 24 Hrs 10/23/17 10/23/17 05:20 05:20 WBC 12.7 H RBC 5.63 Hgb 18.2 H* Hct 52.5 MCV 93.3 MCH 32.3 H MCHC 34.7 RDW 13.2 RDW Differential 44.4 H Plt Count 276 MPV 9.4 Immature Gran % (Auto) 0.400 Neut % (Auto) 89.5 H Lymph % (Auto) 4.2 L [place] % (Auto) 5.8 Eos % (Auto) 0.0 Baso % (Auto) 0.1 Absolute Neuts (auto) 11.4 H Absolute Lymphs (auto) 0.53 L Total Counted Not Reportable Diff Path Review May foll Sodium 139 Potassium 4.1 Chloride 102 Carbon Dioxide 26.0 Anion Gap 11 BUN 12 Creatinine 0.83 Estim Creat Clear Calc 85.57 Est GFR (MDRD) Af Amer 116 Est GFR (MDRD) Non-Af 96 BUN/Creatinine Ratio 14.5 Glucose 138 H Calcium 9.1 Triglycerides 151 Cholesterol 219 H LDL Cholesterol 143 H VLDL Cholesterol 30 HDL Cholesterol 46 POC Glucose 10/23/17 07:08 POC Glucose 198 H Clinical Impression(s) from Imaging Studies Brain CT 10/22/17 07:53 IMPRESSION: Chronic involutional changes of the brain. Electronically Signed: Tom Garcia MD at 8:42 EDT Tel [phone], Service support , Chest X-Ray 10/22/17 08:20 IMPRESSION: Cardiomegaly. Mild increased markings at the lung bases suggestive of linear atelectasis and/or scarring. Electronically Signed: Tom Garcia MD at 8:43 EDT Tel [phone], Service support , Neck CTA 10/22/17 14:41 IMPRESSION: Less than 50% stenosis proximal internal carotid arteries bilaterally due to mixed plaque. Occlusion or near occlusion proximal vertebral artery on the right. Moderate focal stenosis at the origin of the left vertebral artery. Electronically Signed: Bhavin Jonas MD at 16:12 EDT , Service support , Brain CT 10/23/17 05:55 IMPRESSION: Generalized brain atrophy. No acute findings in the brain Electronically Signed: Vaibhav Jaimes, at 6:08 EDT Tel , Service support , Brain MRI 10/23/17 07:17 IMPRESSION: 1. Involutional changes of the brain, as described above. 2. No MR evidence for acute infarct. N.B. : The above information has been verbally conveyed by Aimee Osei MD to Mateo Mckeon on 10/23/2017 08:24:08 (ET). Electronically Signed: Aimee Osei MD at 8:22 EDT , Service support , Assessment/Plan Active and Suspected Problems CVA (cerebral vascular accident) (Acute) Unresponsive episode (Acute) RECOMMENDATIONS: 1. Obtain stat MRA head and neck. 2. Neurology has been consulted and will evaluate patient. 3. Start nicardipine drip and target a systolic blood pressure of 185 mmHg. 4. Obtain arterial blood gas in 1 hour, along with plain film chest x-ray to confirm endotracheal tube placement. 5. Propofol for sedation can be utilized, if necessary, to maintain a RASS of - 1 to 1. 6. Obtain stat EEG as well. IMPRESSIONS: 1. Acute encephalopathy Differential etiologies include ischemic CVA, nonconvulsive status epilepticus and reversible posterior leukoencephalopathy syndrome. Initial MRI this morning revealed no acute CVA. The case was discussed with neurology and MRA head and neck is currently pending. If negative, a stat EEG will be obtained. The patient will be started on a nicardipine drip to titrate to a systolic blood pressure of 185 mmHg. We will also plan to obtain an arterial blood gas upon the patient's return to the medical intensive care unit. 2. Acute respiratory failure The patient was emergently intubated on the morning of October 23 for airway protection due to #1. Plan to obtain arterial blood gas in 1 hour. Minimize sedation and utilize propofol, if needed to maintain a RASS of -1 to 1. Obtain plain film chest x-ray. 3. Hypertensive emergency The patient will be placed on a nicardipine drip to maintain his systolic blood pressure around 185 mmHg. Slow, cautious lowering the patient's baseline blood pressure can be undertaken over the next 24 hours. He is reportedly on a number of antihypertensives as an outpatient, and per his family, he is compliant with their use. 4. Polycythemia Unclear etiology and chronicity. We will need to obtain additional history regarding the patient's smoking history and any known hypoxemia. In addition, I have asked the patient's family to obtain prior blood work results from the patient's PCP for comparison. 5. Personal history of alcohol dependence The patient reportedly drinks 6 beers daily but is never had significant withdrawal symptoms and/or withdrawal seizures. Initiate CIWA protocol and monitor for any signs of withdrawal. TIME: 85 minutes of critical care time, inclusive of procedures, was spent addressing the patient's acute encephalopathy, acute respiratory failure, hypertensive emergency, polycythemia, history of alcohol dependence, review of all data and collaboration with the care team. ([id number]) Code Visit Procedures: 93255 Critial Care Addl 30 Min 9xxxx: [id number] Critical care first hour
--- NOTE | 2017-10-23 09:00 | NURSING ---
[id number] Patient in MRA scan
--- NOTE | 2017-10-23 09:39 | RAD_ITS ---
STUDY: X-RAY CHEST REASON FOR EXAM: Male, 77 years old. Endotracheal tube and nasogastric tube placement. TECHNIQUE: Single AP portable view of the chest. COMPARISON: Comparison is made with prior study dated October 22, 2017. FINDINGS: An endotracheal tube is in situ. The tip is at 5.5 cm proximal to the bertha. The tip of the orogastric tube is within the body of the stomach. Increased markings at the lung bases likely worse on the right side. This has progressed as compared to prior study. There is no demonstrated pleural abnormality. There is moderate cardiac enlargement. Normal mediastinum and elizabeth. Normal visualized pulmonary arteries. There is atherosclerotic tortuosity of the aortic arch and descending thoracic aorta. Normal visualized thoracic spine. Normal visualized ribs, clavicles, and shoulders. There is no demonstrated abnormality of the visualized soft tissue structures of the upper abdomen. RAD/Chest 1 View (Portable) IMPRESSION: The tip of the endotracheal tube is at 5.5 cm proximal to the bertha. The tip of the orogastric tube is in the body of the stomach. Bibasilar atelectasis and/or infiltrate slightly worse on the right lung base. Electronically Signed: Tom Garcia MD at 11:12 EDT Tel [phone], Service support ,
--- NOTE | 2017-10-23 10:14 | PCM.CONS.GEN ---
Problem List (1) Unresponsive episode Status: Acute Reason for Consult Date of Consultation: 10/23/17 Reason for Consultation: Unresponsive/less responsive episode History of Present Illness: The patient is a 77 year old CM with PMH HTN, ETOH abuse was admitted yesterday (10/22/17) with right sided numbness, leg weakness, difficulty in walking, and was found to have SBP >220 on admission. History is obtained from family and medical records. Per ED documentation NIHSS on admission was 4 and he was not tpa candidate, symptoms were present since Saturday (10/21/17) night. Neurology was not consulted by hospitalist yesterday on admission but was later consulted this morning (10/23/17) by Dr. Brewer, after HOSPITAL STAFF PHARMACIST was called on when patient became unresponsive/less responsive. Per nurse taking care of the patient, patient was seen his normal self at around 6 am this morning (though documented NIHSS was 3 prior to that), later was found to be less responsive/unresponsive later in the morning, following which an HOSPITAL STAFF PHARMACIST was called, and Dr. Brewer called a stroke alert too, patient was intubated for airway protection. MRI brain done stat showed no acute stroke, MRA head/neck showed right vert occlusion/thrombosis, left vert was dominant and reported to show ? left SCA thrombosis (read by Dr. Aimee Osei). CTA head/neck done yesterday reported to show proximal right vert occlusion. No witnessed seizures. Per family at baseline patient lives alone, does not use cane or walker to ambulate, denies any falls, and does not need any assistance for his ADLs. Per daughter she feels he may be having memory issues. Does drink about 6 beers daily. Patient denies any ZARCO, visual disturbances at present and is able to follow commands even though is intubated. Past Medical History Past Medical History (Chronic Problems): Chronic Problems HTN (hypertension) (Chronic) Allergies No Known Allergies Allergy (Verified 10/22/17 07:40) Home Medications: Ambulatory Orders Medication Instructions Recorded Amlodipine Besylate [Amlodipine 2.5 mg PO DAILY 05/07/16 Besylate] Surgical History: no surgical history Lives: Alone Smoking Status: Former smoker Alcohol: Occasional - 6 beers daily Drugs: None - *Family History Maternal History Items: Heart Disease Paternal History Items: Heart Disease Review of Systems Constitutional: Reports: - - could not be obtained since patient is intubated Patient Problems: Active and Suspected Problems CVA (cerebral vascular accident) (Acute) Unresponsive episode (Acute) - Physical Exam General: - - awake, is easily arousable, follow VC HEENT: Normocephalic Neck: Supple Lungs: Normal air movement Cardiovascular: Normal S1, Normal S2 Abdomen: Bowel Sounds Present Extremities: No cyanosis Musculoskeletal: No Tenderness to Palpation of Joints or Extremities Neurological: - - awake, follows VC, s/p intubation, limited neurology examiantion, CN 2-12 grossly intact, pupiles BERL, moves all 4 extremities, no focal motor weakness appreciated, denies any sensory loss, Refelxes + B/L B/S/T/K/A, cerebellar signs/gait could not be assessed, No NR. limited neurology examination. Vital Signs Temp Pulse Resp BP Pulse Ox 97.3 F L 108 H 12 227/121 H 98 10/23/17 06:57 10/23/17 09:37 10/23/17 09:37 10/23/17 07:06 10/23/17 09:37 Oxygen Flow Rate (L/min) 2 Oxygen Delivery Method Nasal Cannula Weight: 84.5 kg Body Mass Index (BMI) 24.5 Finger Stick Blood Glucose 198 Intake and Output for Last 24 Hours 10/21/17 10/22/17 10/23/17 23:59 23:59 23:59 Intake Total 480 / 480 Balance 480 / 480 Laboratory Tests Past 24 Hrs 10/23/17 10/23/17 05:20 05:20 WBC 12.7 H RBC 5.63 Hgb 18.2 H* Hct 52.5 MCV 93.3 MCH 32.3 H MCHC 34.7 RDW 13.2 RDW Differential 44.4 H Plt Count 276 MPV 9.4 Immature Gran % (Auto) 0.400 Neut % (Auto) 89.5 H Lymph % (Auto) 4.2 L [place] % (Auto) 5.8 Eos % (Auto) 0.0 Baso % (Auto) 0.1 Absolute Neuts (auto) 11.4 H Absolute Lymphs (auto) 0.53 L Total Counted Not Reportable Diff Path Review May foll Sodium 139 Potassium 4.1 Chloride 102 Carbon Dioxide 26.0 Anion Gap 11 BUN 12 Creatinine 0.83 Estim Creat Clear Calc 85.57 Est GFR (MDRD) Af Amer 116 Est GFR (MDRD) Non-Af 96 BUN/Creatinine Ratio 14.5 Glucose 138 H Calcium 9.1 Triglycerides 151 Cholesterol 219 H LDL Cholesterol 143 H VLDL Cholesterol 30 HDL Cholesterol 46 POC Glucose 10/23/17 07:08 POC Glucose 198 H Assessment/Plan All Active Problems CVA (cerebral vascular accident) (Acute) Unresponsive episode (Acute) The patient is a 77 year old CM with PMH HTN, ETOH abuse was admitted yesterday (10/22/17) with right sided numbness, leg weakness, difficulty in walking, and was found to have SBP >220 on admission. History is obtained from family and medical records. Per ED documentation NIHSS on admission was 4 and he was not tpa candidate, symptoms were present since Saturday (10/21/17) night. Neurology was not consulted by hospitalist on admission but was later consulted this morning (10/23/17) after HOSPITAL STAFF PHARMACIST was called on when patient became unresponsive/less responsive. Per nurse taking care of the patient, patient was seen his normal self at around 6 am this morning (though documented NIHSS was 3 prior to that), later was found to be less responsive/unresponsive later in the morning, following which an HOSPITAL STAFF PHARMACIST was called, and Dr. Brewer called a stroke alert, patient was intubated for airway protection. MRI brain done stat showed no acute stroke, MRA head/neck showed right vert occlusion/thrombosis, left vert was dominant and reported to show ? left SCA thrombosis (read by Dr. Osei). CTA head/neck done yesterday reported to show proximal right vert occlusion. No witnessed seizures. Per family at baseline patient lives alone, does not use cane or walker to ambulate, denies any falls, and does not need any assistance for his ADLs. Per daughter she feels he may be having memory issues. Does drink about 6 beers daily. Patient denies any ZARCO, visual disturbances at present and is able to follow commands even though is intubated. Impression Unresponsive episode HTNsive encephalopathy HTNsive urgency Unlikely to be Stroke/TIA at present- MRI does not show acute stroke, has non focal neurological examination at present. Plan -MRI brain/MRA head/neck reviewed- no acute stroke -Await EEG -On ASA -W/F DTs -Thiamine 100 mg daily -Management of HTN per ICU team/primary team -Check Vitamin B12, Vitamin B1 level, TSH and ammonia level -Memory issue work up as outpatient. follow up with Neurology for the same. Discussed with family. -Discussed the case with Dr. Brewer. -PT/OT/ST -GI/DVT prophylaxis -Please call with questions if any -Thank you for allowing us to participate in patient's care and management I spent 60 minutes of critical care time in taking history, doing physical examination, reviewing records,coordinating care or counseling the patient and family. Code Visit Inpatient E&M: 90416 Init Hosp L3
[2017-10-23] MEDS: Dext 5%-0.45% NS 1,000 ML 125 ML IV ×2 (10:24→18:09)
[2017-10-23 10:56] LABS: Allen Test POS; Base Excess -1 mmol/L (-2 to +2); Bicarbonate 25.2 mmol/L (22-26); Blood Gas Specimen Type ART; FI02 50; Mode A-C; O2 Delivery Device Vent; PEEP 5; PO2 92 mmHG (75-100); RR 12; SITE R Radial; SO2 97 % (95-99); Time Given 1043; Total Carbon Dioxide 27 mmol/L; Vt 450; pCO2 46.4 mmHg (35-45); pH 7.34 (7.35-7.45)
[2017-10-23 11:34] LABS: CPK Total, Creatine Kinase 267 U/L (39-308); Triglycerides 94 mg/dL
[2017-10-23 12:09] LABS: Vitamin B12 352 pg/mL (211-911)
[2017-10-23] MEDS: Enoxaparin 40 MG/0.4 ML Syringe SC (12:35)
[2017-10-23] MEDS: Aspirin 81 MG TAB.CHEW PO (12:35)
[2017-10-23] MEDS: Propofol 10MG/Ml 1,000 MG/100 ML Bottle 2.535 MG CONT INF (13:46)
--- NOTE | 2017-10-23 14:17 | CASEMGMT ---
RN MARIS Assessment completed, see link. -Discussed RN MARIS/SW role in discharge planning. -Disussed ICU am interdisciplinary rounds -Discussed pt may need post hospital care prior to returning home. Family is requesting [facility] Inpt Rehab or -[facility] TCU if this is recommended. Referral line called and message left with pt's name for both areas. -Questions answered for family. -ANALIA Mcdermott updated. Karishma BOLTON BSN ACM
--- NOTE | 2017-10-23 14:47 | CASEMGMT ---
RN CM Note. Call received from [facility], Inpt Rehab. Pt will be considered for Inpt Rehab and is on list. Karishma HERRERAN RN ACM
--- NOTE | 2017-10-23 15:11 | PCM.PN.HOSP ---
Patient Problems: Active and Suspected Problems CVA (cerebral vascular accident) (Acute) Unresponsive episode (Acute) Subjective: f/u for transient neurological deficits and then now loss of consciousness Patient seen and examined Had to be emergently intubated for airway management Vitals/I&O's: Vital Signs Temp Pulse Resp BP Pulse Ox 97.5 F L 83 14 98/66 98 10/23/17 13:00 10/23/17 14:00 10/23/17 14:00 10/23/17 14:00 10/23/17 14:00 Oxygen Flow Rate (L/min) 2 Oxygen Delivery Method Mechanical Ventilator Weight: 84.5 kg Body Mass Index (BMI) 24.5 Finger Stick Blood Glucose 0 Intake and Output for Last 24 Hours 10/21/17 10/22/17 10/23/17 23:59 23:59 23:59 Intake Total 480 / 480 357 / 357 Output Total 750 / 750 Balance 480 / 480 -393 / -393 General: - - sedated at this time and tolerating intubation, on mehanical ventilation at fairly minimal settings HEENT: Atraumatic Oral: Moist Mucosa Neck: Supple Lungs: - - non labored Cardiovascular: Normal S1, Normal S2 Abdomen: Obese, - - moves with respiration Extremities: No edema Skin: No rashes, No breakdown Neurological: - - at this time. Just prior to intubation pupils were dilated and non reactive Psych/Mental Status: Appropriate Laboratory Results 10/23/17 05:20: WBC 12.7 H, RBC 5.63, Hgb 18.2 H*, Hct 52.5, MCV 93.3, MCH 32.3 H, MCHC 34.7, RDW 13.2, RDW Differential 44.4 H, Plt Count 276, MPV 9.4, Immature Gran % (Auto) 0.400, Neut % (Auto) 89.5 H, Lymph % (Auto) 4.2 L, [place] % (Auto) 5.8, Eos % (Auto) 0.0, Baso % (Auto) 0.1, Absolute Neuts (auto) 11.4 H, Absolute Lymphs (auto) 0.53 L, Total Counted Not Reportable, Diff Path Review June10/23/17 05:20: Sodium 139, Potassium 4.1, Chloride 102, Carbon Dioxide 26.0, Anion Gap 11, BUN 12, Creatinine 0.83, Estim Creat Clear Calc 85.57, Est GFR (MDRD) Af Amer 116, Est GFR (MDRD) Non-Af 96, BUN/Creatinine Ratio 14.5, Glucose 138 H, Calcium 9.1, Triglycerides 151, Cholesterol 219 H, LDL Cholesterol 143 H, VLDL Cholesterol 30, HDL Cholesterol 46 10/23/17 07:08: POC Glucose 198 H 10/23/17 10:51: Specimen Type ART, Sample Site R Radial, pH 7.34 L, Bicarbonate Actual 25.2, POC Total CO2 27, Base Excess -1, O2 Saturation 97, O2 % 50, ABG pCO2 46.4 H, ABG pO2 92, Jermaine Test POS, Respiration Rate 12, O2 Delivery Device Vent, Minute Volume 10.00, Vent Mode A-C, Tidal Volume 450, POC PEEP 5, Blood Gas Notified Whom ICU MD, Blood Gas Notified Time 1043 10/23/17 10:55: TSH 0.80 10/23/17 10:55: Vitamin B12 352 10/23/17 10:55: Ammonia 14.0 10/23/17 10:55: Whole Bld Vitamin B1 Pending 10/23/17 10:55: Total Creatine Kinase 267, Triglycerides 94 Current Medications Aspirin (Aspirin, Baby) 81 mg PO DAILY@0800 [facility] Last Admin: 10/23/17 12:35 Dose: 81 mg Atorvastatin Calcium (Lipitor) 40 mg PO QHS [facility] Last Admin: 10/22/17 21:16 Dose: 40 mg Enoxaparin Sodium (Lovenox) 40 mg SC DAILY@1000 [facility] Last Admin: 10/23/17 12:35 Dose: 40 mg Nicardipine HCl 25 mg/ Sodium (Chloride) 250 mls @ 50 mls/hr IV .Q5H MAHSA; 5 MG/HR PRN Reason: Protocol Last Admin: 10/23/17 08:02 Dose: 50 mls/hr Dextrose/Sodium Chloride () 1,000 mls @ 125 mls/hr IV .Q8H [facility] Last Admin: 10/23/17 10:24 Dose: 125 mls/hr Propofol (Diprivan) 1,000 mg in 100 mls @ 2.535 mls/hr CONT INF .Q12H MAHSA; 5 MCG/KG/MIN PRN Reason: Protocol Last Admin: 09/12/18 13:46 Dose: 2.535 mls/hr Labetalol HCl (Trandate) 10 mg IV Q10M PRN PRN PRN Reason: Hypertensive Emergency Magnesium Hydroxide (Milk Of Magnesia) 30 ml PO DAILY PRN PRN Reason: Constipation Sodium Chloride () 5 - 30 ml IV UD PRN PRN Reason: SALINE FLUSH Medical Necessity - Tobacco Use Smoking Status: Former smoker Assessment/Plan All Active Problems CVA (cerebral vascular accident) (Acute) Unresponsive episode (Acute) 1. Acute encephalopathy. Appears to be secondary to hypertensive encephalopathy given markedly elevated BP currently and on presentation. PRESS being considered as a differential as well. Intubation and mechanical ventilation instituted for airway management primarily. Greatly appreciate input and help from critical care 2. TIA. patient had transient weakness of extremity and slurring of speech with some dysphasia. Likely this was a manifestation of hypertensive encephalopathy. Neurology on consult and is following. 3. Hypertensive emergency. Started on nicardipine drip for gradual and safe BP reduction. Will continue to monitor 4. Alcohol abuse. May need to monitor for etoh withdrawal. IV thiamine for now Code Visit Inpatient E&M: 77562 Subs Hosp L3
--- NOTE | 2017-10-23 15:15 | PN_ITS ---
Patient Problems: Active and Suspected Problems CVA (cerebral vascular accident) (Acute) Unresponsive episode (Acute) Subjective: f/u for transient neurological deficits and then now loss of consciousness Patient seen and examined Had to be emergently intubated for airway management Vitals/I&O's: Vital Signs Temp Pulse Resp BP Pulse Ox 97.5 F L 83 14 98/66 98 10/23/17 13:00 10/23/17 14:00 10/23/17 14:00 10/23/17 14:00 10/23/17 14:00 Oxygen Flow Rate (L/min) 2 Oxygen Delivery Method Mechanical Ventilator Weight: 84.5 kg Body Mass Index (BMI) 24.5 Finger Stick Blood Glucose 0 Intake and Output for Last 24 Hours 10/21/17 10/22/17 10/23/17 23:59 23:59 23:59 Intake Total 480 / 480 357 / 357 Output Total 750 / 750 Balance 480 / 480 -393 / -393 General: - - sedated at this time and tolerating intubation, on mehanical ventilation at fairly minimal settings HEENT: Atraumatic Oral: Moist Mucosa Neck: Supple Lungs: - - non labored Cardiovascular: Normal S1, Normal S2 Abdomen: Obese, - - moves with respiration Extremities: No edema Skin: No rashes, No breakdown Neurological: - - at this time. Just prior to intubation pupils were dilated and non reactive Psych/Mental Status: Appropriate Laboratory Results 10/23/17 05:20: WBC 12.7 H, RBC 5.63, Hgb 18.2 H*, Hct 52.5, MCV 93.3, MCH 32.3 H, MCHC 34.7, RDW 13.2, RDW Differential 44.4 H, Plt Count 276, MPV 9.4, Immature Gran % (Auto) 0.400, Neut % (Auto) 89.5 H, Lymph % (Auto) 4.2 L, [place] % (Auto) 5.8, Eos % (Auto) 0.0, Baso % (Auto) 0.1, Absolute Neuts (auto) 11.4 H , Absolute Lymphs (auto) 0.53 L, Total Counted Not Reportable, Diff Path Review June10/23/17 05:20: Sodium 139, Potassium 4.1, Chloride 102, Carbon Dioxide 26.0, Anion Gap 11, BUN 12, Creatinine 0.83, Estim Creat Clear Calc 85.57, Est GFR ( MDRD) Af Amer 116, Est GFR (MDRD) Non-Af 96, BUN/Creatinine Ratio 14.5, Glucose 138 H, Calcium 9.1, Triglycerides 151, Cholesterol 219 H, LDL Cholesterol 143 H , VLDL Cholesterol 30, HDL Cholesterol 46 10/23/17 07:08: POC Glucose 198 H 10/23/17 10:51: Specimen Type ART, Sample Site R Radial, pH 7.34 L, Bicarbonate Actual 25.2, POC Total CO2 27, Base Excess -1, O2 Saturation 97, O2 % 50, ABG pCO2 46.4 H, ABG pO2 92, Jermaine Test POS, Respiration Rate 12, O2 Delivery Device Vent, Minute Volume 10.00, Vent Mode A-C, Tidal Volume 450, POC PEEP 5, Blood Gas Notified Whom ICU MD, Blood Gas Notified Time 1043 10/23/17 10:55: TSH 0.80 10/23/17 10:55: Vitamin B12 352 10/23/17 10:55: Ammonia 14.0 10/23/17 10:55: Whole Bld Vitamin B1 Pending 10/23/17 10:55: Total Creatine Kinase 267, Triglycerides 94 Current Medications Aspirin (Aspirin, Baby) 81 mg PO DAILY@0800 [facility] Last Admin: 10/23/17 12:35 Dose: 81 mg Atorvastatin Calcium (Lipitor) 40 mg PO QHS [facility] Last Admin: 10/22/17 21:16 Dose: 40 mg Enoxaparin Sodium (Lovenox) 40 mg SC DAILY@1000 [facility] Last Admin: 10/23/17 12:35 Dose: 40 mg Nicardipine HCl 25 mg/ Sodium (Chloride) 250 mls @ 50 mls/hr IV .Q5H [facility]; 5 MG/ HR PRN Reason: Protocol Last Admin: 10/23/17 08:02 Dose: 50 mls/hr Dextrose/Sodium Chloride () 1,000 mls @ 125 mls/hr IV .Q8H [facility] Last Admin: 10/23/17 10:24 Dose: 125 mls/hr Propofol (Diprivan) 1,000 mg in 100 mls @ 2.535 mls/hr CONT INF .Q12H [facility]SA; 5 MCG/KG/MIN PRN Reason: Protocol Last Admin: 09/12/18 13:46 Dose: 2.535 mls/hr Labetalol HCl (Trandate) 10 mg IV Q10M PRN PRN PRN Reason: Hypertensive Emergency Magnesium Hydroxide (Milk Of Magnesia) 30 ml PO DAILY PRN PRN Reason: Constipation Sodium Chloride () 5 - 30 ml IV UD PRN PRN Reason: SALINE FLUSH Medical Necessity - Tobacco Use Smoking Status: Former smoker Assessment/Plan All Active Problems CVA (cerebral vascular accident) (Acute) Unresponsive episode (Acute) 1. Acute encephalopathy. Appears to be secondary to hypertensive encephalopathy given markedly elevated BP currently and on presentation. PRESS being considered as a differential as well. Intubation and mechanical ventilation instituted for airway management primarily. Greatly appreciate input and help from critical care 2. TIA. patient had transient weakness of extremity and slurring of speech with some dysphasia. Likely this was a manifestation of hypertensive encephalopathy. Neurology on consult and is following. 3. Hypertensive emergency. Started on nicardipine drip for gradual and safe BP reduction. Will continue to monitor 4. Alcohol abuse. May need to monitor for etoh withdrawal. IV thiamine for now Code Visit Inpatient E&M: 68290 Subs Hosp L3
--- NOTE | 2017-10-23 15:44 | EEG ---
- Electroencephalogram Date of service 10/23/2017 History EEG is being done in this 77 yr M to rule out seizures EEG Description: This is an 18 channel EEG with 10-20 lead placement system. Bipolar montages, Referential and Circumferential montages were reviewed. Photic stimulation was performed but Hyperventilation was not performed as patient was intubated The posterior dominant rhythm is 10 HZ synchronous, symmetric, reacting to eye opening and closing. Photo stimulation elicited normal driving response but no abnormal photoparoxysmal response, Hyperventilation was not performed as patient was intubated. Drowsiness was identified. There is no abnormal background slowing noted. There was no epileptiform discharges or electrographic seizures noted during this recording. Muscle artefact noted during the record. EEG Interpretation This is a normal awake and drowsy EEG. There is no epileptiform discharges or electrographic seizures noted during the record.
[2017-10-23] MEDS: Atorvastatin Calcium 40 MG Tablet PO (21:34)
[2017-10-23] MEDS: Chlorhexidine 15 ML PO (21:35)
[2017-10-24] VITALS (63 sets, daily range): BP systolic 83–210; BP diastolic 54–109; PULSE 65–111; RESP 12–26; TEMP 36.3–37.3; O2SAT 79–100; BMI 24.5
[2017-10-24] MEDS: Propofol 10MG/Ml 1,000 MG/100 ML Bottle 2.535 MG CONT INF ×2 (02:00→17:53)
[2017-10-24] MEDS: CHLORHEXIDINE GLUC 2% CLOTH 1 EACH TOWELETTE TOPICAL (02:33)
[2017-10-24] MEDS: Dext 5%-0.45% NS 1,000 ML 125 ML IV ×2 (02:35→10:35)
[2017-10-24 07:09] LABS: Basophil# 0.01 X10^3/uL; Basophil% 0.1 % (0-1); Differential Indicated SCAN CRITERIA MET; Eosinophil# 0.02 X10^3/uL; Eosinophils% 0.1 % (0-5); Hematocrit 47.3 % (40-54); Hemoglobin 16.5 g/dl (13.0-16.5); Lymphocyte % 3.5 % (19-41); Mean Corp Hgb Conc 34.9 g/gl (32-36); Mean Corpuscular Hgb 33.1 pg (27.0-32.0); Mean Corpuscular Volume 94.8 fL (80-94); Monocyte# 1.59 X10^3/uL; Monocyte% 9.2 % (0-10); Neutrophil # 14.97 X10^3/uL (2.7-7.7); Neutrophil % 86.7 % (47-70); POSITIVE COUNT NO; POSITIVE DIFFERENTIAL YES; POSITIVE MORPHOLOGY NO; Platelet Count 253 K/mm3 (150-450); RBC Distribution Width CV 13.4 % (11.6-14.6); Red Blood Count 4.99 M/mm3 (4.6-6.2); White Blood Count 17.3 K/mm3 (4.4-11.0)
[2017-10-24 07:16] LABS: Anion Gap 8 (5-15); BUN 13 mg/dL (7-18); BUN/Creat Ratio 17.7 RATIO (10-20); Calcium,Total 8.3 mg/dL (8.5-10.1); Chloride 101 mmol/L (98-107); Creatinine, Serum 0.74 mg/dL (0.70-1.30); EST Glomerular Filtration Rate 110 mL/min (>60); Est Glom Filt Rate - Afr Amer 133 mL/min (>60); Estimated Creatinine Clearance 71.02 ml/min; Glucose 132 mg/dL (74-106); Potassium 3.8 mmol/L (3.5-5.1); Sodium Level 138 mmol/L (136-145)
--- NOTE | 2017-10-24 07:18 | PCM.PN.INT ---
Subjective: The patient was seen and examined at the bedside this morning. Events from the last 24 hours have been reviewed. The patient is currently afebrile, hemodynamically stable and maintaining appropriate oxygen saturations on an FiO2 requirement of 30%. The patient's blood pressures have been quite tenuous with large systolic fluctuations over the last 24 hours. He did have to be restarted on his Cardene drip overnight due to elevated systolic blood pressures. Per respiratory therapy, the patient initially failed his spontaneous breathing trial this morning. When placed on spontaneous mode mechanical ventilation with a pressure support of 5 and PEEP of 5, the patient was noted to draw low tidal volumes and reportedly became hypoxic. He was then placed back on assist control mode of mechanical ventilation. Upon my review of the patient this morning, he appeared to be resting comfortably in bed on a minimal amount of fentanyl for pain. He does report back pain at the present time. I did transition him back over to spontaneous mode of mechanical ventilation with a pressure support of 10 and PEEP of 5. His tidal volumes improved without hypoxia noted. He is alert, cooperative and following commands appropriately. Objective: The patient's most recent lab work, culture data and imaging studies have all been personally reviewed. Initial head CT dated October 22 was negative, only revealing chronic involutional changes. Neck CTA dated October 22 revealed less than 50% stenosis of the proximal internal carotid arteries bilaterally, near complete occlusion of the proximal vertebral artery on the right and moderate focal stenosis at the origin of the left vertebral artery. Brain MRI dated October 23 revealed involutional changes of the brain without MR evidence of acute infarction. Head/neck MRA completed on October 23 revealed nonvisualization of the right intradural vertebral artery suggesting possible thrombus. There was also note of apparent thrombus of the left superior cerebellar artery. EEG also completed on October 23 revealed a normal awake and drowsy EEG without epileptiform discharges or electrographic seizure activity. Surface echocardiogram revealed normal LV size and function with an ejection fraction of 55% and evidence of stage I diastolic dysfunction. General: - - Remains intubated, minimally sedated and mechanically ventilated. Currently tolerating CPAP with a pressure support of 10 and PEEP of 5. HEENT: Atraumatic, PERRLA, Normocephalic Oral: No Gingival or Mucosal Lesions/ Ulcerations, - - Endotracheal and OG tubes in place. Neck: Supple, No Nodes, Trachea Midline Lungs: No rhonchi, No wheeze, No rales, Diminished Cardiovascular: Normal S1, Normal S2, No murmurs, No rub noted, No Gallop, Tachycardic Abdomen: Bowel Sounds Present, Soft, Non Tender, Non-Distended Extremities: No clubbing, No cyanosis, No edema Skin: No breakdown Musculoskeletal: No Muscle Wasting Lymphatic: No Cervical, Supraclavicular, or Inguinal Adenopathy Neurological: - - No focal neurological deficits. Attempts to move all extremities spontaneously. Alert and following commands appropriately. Vital Signs Temp Pulse Resp BP Pulse Ox 97.9 F 87 15 164/82 H 98 10/24/17 04:00 10/24/17 06:00 10/24/17 06:00 10/24/17 06:00 10/24/17 06:00 Oxygen Flow Rate (L/min) 2 Oxygen Delivery Method Mechanical Ventilator Weight: 189 lb 13.088 oz Body Mass Index (BMI) 24.5 Finger Stick Blood Glucose 0 Intake and Output for Last 24 Hours 10/22/17 10/23/17 10/24/17 23:59 23:59 23:59 Intake Total 480 / 480 1865.0 / 1865.0 801.8 / 801.8 Output Total 1050 / 1050 350 / 350 Balance 480 / 480 815.0 / 815.0 451.8 / 451.8 Labs (Last 48 Hours) 10/23/17 10/23/17 10/23/17 05:20 05:20 07:08 WBC 12.7 H RBC 5.63 Hgb 18.2 H* Hct 52.5 MCV 93.3 MCH 32.3 H MCHC 34.7 RDW 13.2 RDW Differential 44.4 H Plt Count 276 MPV 9.4 Immature Gran % (Auto) 0.400 Neut % (Auto) 89.5 H Lymph % (Auto) 4.2 L [place] % (Auto) 5.8 Eos % (Auto) 0.0 Baso % (Auto) 0.1 Absolute Neuts (auto) 11.4 H Absolute Lymphs (auto) 0.53 L Total Counted Not Reportable Diff Path Review May foll Specimen Type Sample Site pH Bicarbonate Actual POC Total CO2 Base Excess O2 Saturation O2 % ABG pCO2 ABG pO2 Jermaine Test Respiration Rate O2 Delivery Device Minute Volume Vent Mode Tidal Volume POC PEEP Blood Gas Notified Whom Blood Gas Notified Time Sodium 139 Potassium 4.1 Chloride 102 Carbon Dioxide 26.0 Anion Gap 11 BUN 12 Creatinine 0.83 Estim Creat Clear Calc 85.57 Est GFR (MDRD) Af Amer 116 Est GFR (MDRD) Non-Af 96 BUN/Creatinine Ratio 14.5 Glucose 138 H Calcium 9.1 Ammonia Total Creatine Kinase Triglycerides 151 Cholesterol 219 H LDL Cholesterol 143 H VLDL Cholesterol 30 HDL Cholesterol 46 Whole Bld Vitamin B1 Vitamin B12 TSH POC Glucose 198 H 10/23/17 10/23/17 10/23/17 10:51 10:55 10:55 WBC RBC Hgb Hct MCV MCH MCHC RDW RDW Differential Plt Count MPV Immature Gran % (Auto) Neut % (Auto) Lymph % (Auto) [place] % (Auto) Eos % (Auto) Baso % (Auto) Absolute Neuts (auto) Absolute Lymphs (auto) Total Counted Diff Path Review Specimen Type ART Sample Site R Radial pH 7.34 L Bicarbonate Actual 25.2 POC Total CO2 27 Base Excess -1 O2 Saturation 97 O2 % 50 ABG pCO2 46.4 H ABG pO2 92 Jermaine Test POS Respiration Rate 12 O2 Delivery Device Vent Minute Volume 10.00 Vent Mode A-C Tidal Volume 450 POC PEEP 5 Blood Gas Notified Whom ICU MD Blood Gas Notified Time 1043 Sodium Potassium Chloride Carbon Dioxide Anion Gap BUN Creatinine Estim Creat Clear Calc Est GFR (MDRD) Af Amer Est GFR (MDRD) Non-Af BUN/Creatinine Ratio Glucose Calcium Ammonia Total Creatine Kinase Triglycerides Cholesterol LDL Cholesterol VLDL Cholesterol HDL Cholesterol Whole Bld Vitamin B1 Vitamin B12 352 TSH 0.80 POC Glucose 10/23/17 10/23/17 10/23/17 10:55 10:55 10:55 WBC RBC Hgb Hct MCV MCH MCHC RDW RDW Differential Plt Count MPV Immature Gran % (Auto) Neut % (Auto) Lymph % (Auto) [place] % (Auto) Eos % (Auto) Baso % (Auto) Absolute Neuts (auto) Absolute Lymphs (auto) Total Counted Diff Path Review Specimen Type Sample Site pH Bicarbonate Actual POC Total CO2 Base Excess O2 Saturation O2 % ABG pCO2 ABG pO2 Jermaine Test Respiration Rate O2 Delivery Device Minute Volume Vent Mode Tidal Volume POC PEEP Blood Gas Notified Whom Blood Gas Notified Time Sodium Potassium Chloride Carbon Dioxide Anion Gap BUN Creatinine Estim Creat Clear Calc Est GFR (MDRD) Af Amer Est GFR (MDRD) Non-Af BUN/Creatinine Ratio Glucose Calcium Ammonia 14.0 Total Creatine Kinase 267 Triglycerides 94 Cholesterol LDL Cholesterol VLDL Cholesterol HDL Cholesterol Whole Bld Vitamin B1 Pending Vitamin B12 TSH POC Glucose 10/24/17 10/24/17 06:58 06:58 WBC 17.3 H RBC 4.99 Hgb 16.5 Hct 47.3 MCV 94.8 H MCH 33.1 H MCHC 34.9 RDW 13.4 RDW Differential 45.0 H Plt Count 253 MPV 9.0 Immature Gran % (Auto) 0.400 Neut % (Auto) 86.7 H Lymph % (Auto) 3.5 L [place] % (Auto) 9.2 Eos % (Auto) 0.1 Baso % (Auto) 0.1 Absolute Neuts (auto) 15.0 H Absolute Lymphs (auto) 0.60 L Total Counted Pending Diff Path Review Specimen Type Sample Site pH Bicarbonate Actual POC Total CO2 Base Excess O2 Saturation O2 % ABG pCO2 ABG pO2 Jermaine Test Respiration Rate O2 Delivery Device Minute Volume Vent Mode Tidal Volume POC PEEP Blood Gas Notified Whom Blood Gas Notified Time Sodium 138 Potassium 3.8 Chloride 101 Carbon Dioxide 29.0 Anion Gap 8 BUN 13 Creatinine 0.74 Estim Creat Clear Calc 71.02 Est GFR (MDRD) Af Amer 133 Est GFR (MDRD) Non-Af 110 BUN/Creatinine Ratio 17.7 Glucose 132 H Calcium 8.3 L Ammonia Total Creatine Kinase Triglycerides Cholesterol LDL Cholesterol VLDL Cholesterol HDL Cholesterol Whole Bld Vitamin B1 Vitamin B12 TSH POC Glucose Clinical Impression(s) from Imaging Studies Brain CT 10/22/17 07:53 IMPRESSION: Chronic involutional changes of the brain. Electronically Signed: Tom Garcia MD at 8:42 EDT Tel [phone], Service support , Chest X-Ray 10/22/17 08:20 IMPRESSION: Cardiomegaly. Mild increased markings at the lung bases suggestive of linear atelectasis and/or scarring. Electronically Signed: Tom Garcia MD at 8:43 EDT Tel [phone], Service support , Neck CTA 10/22/17 14:41 IMPRESSION: Less than 50% stenosis proximal internal carotid arteries bilaterally due to mixed plaque. Occlusion or near occlusion proximal vertebral artery on the right. Moderate focal stenosis at the origin of the left vertebral artery. Electronically Signed: Bhavin Jonas MD at 16:12 EDT , Service support , Brain CT 10/23/17 05:55 IMPRESSION: Generalized brain atrophy. No acute findings in the brain Electronically Signed: Vaibhav GoodwinJeniferTrace, at 6:08 EDT Tel , Service support , Brain MRI 10/23/17 07:17 IMPRESSION: 1. Involutional changes of the brain, as described above. 2. No MR evidence for acute infarct. N.B. : The above information has been verbally conveyed by Aimee Osei MD to [facility], on 10/23/2017 08:24:08 (ET). Electronically Signed: Aimee Osei MD at 8:22 EDT , Service support , Head MRA 10/23/17 08:12 IMPRESSION: 1. Nonvisualization of the right intradural vertebral artery suggesting possible thrombosis. 2. 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 3. No MRA evidence for aneurysm. N.B. : The above information has been verbally conveyed by Aimee Osei MD to Mateo LAWSON, on 10/23/2017 10:08:03 (ET). Electronically Signed: Aimee Osei MD at 9:55 EDT , Service support , Neck MRA 10/23/17 08:12 IMPRESSION: 1. 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 2. Nonhemodynamically significant stenoses of the left vertebral artery, common carotid and internal carotid arteries. N.B. : The above information has been verbally conveyed by Aimee Osei MD to Mateo Manzo, on 10/23/2017 10:07:17 (ET). Electronically Signed: Aimee Osei MD at 10:01 EDT , Service support , Chest X-Ray 10/23/17 09:39 IMPRESSION: The tip of the endotracheal tube is at 5.5 cm proximal to the bertha. The tip of the orogastric tube is in the body of the stomach. Bibasilar atelectasis and/or infiltrate slightly worse on the right lung base. Electronically Signed: Tom Garcia MD at 11:12 EDT Tel [phone], Service support , Medical Necessity - Tobacco Use Smoking Status: Former smoker Assessment/Plan All Active Problems CVA (cerebral vascular accident) (Acute) Unresponsive episode (Acute) RECOMMENDATIONS: 1. Obtain repeat arterial blood gas in 1 hour. 2. Restart propofol and fentanyl for sedation. 3. Okay to restart tube feeds once gastric tube positioning is confirmed. 4. Will perform bedside bronchoscopy this afternoon and obtain bronchial alveolar lavage. 5. Start broad-spectrum antibiotics. Check strep and urine Legionella antigens. 6. Start heparin drip, given newly diagnosed PE and discontinue Lovenox. 7. Continue nicardipine for control of hypertensive urgency. IMPRESSIONS: 1. Acute encephalopathy Differential etiologies initially included ischemic CVA, nonconvulsive status epilepticus and reversible posterior leukoencephalopathy syndrome. However, subsequent workup including MRI/MRA head and neck revealed no acute infarction. EEG demonstrated no evidence of epileptiform discharges or seizure activity. Therefore, the most likely etiology for the patient's encephalopathy was secondary to his profound hypertension. At the present time, the patient's mentation significantly improved. He is alert and following commands appropriately without focal neurological deficits. Given the significant improvement noted, the patient was felt to be appropriate for a trial of extubation this morning. His endotracheal tube was removed under my direct supervision. However, a short time later, the patient was noted to be less responsive with increasing hypoxemia. Attempts at the use of noninvasive positive pressure ventilation was unsuccessful. Therefore, the decision was made to reintubate the patient. The patient was noted to be hypercarbic on arterial blood gas shortly after intubation. 2. Acute hypercarbic and hypoxemic respiratory failure secondary to pulmonary embolism and right lower lobe airspace disease The patient was emergently intubated on the morning of October 23 for airway protection due to #1. The patient failed his attempted extubation on the morning of October 24. An arterial blood gas obtained shortly after intubation revealed hypercarbia. In addition, the patient was noted to be increasingly hypoxic upon extubation. Therefore, a stat CTA chest was obtained, which revealed significant right-sided pulmonary embolization along with right lower lobe airspace disease and volume loss. Over concerns for potential mucus impaction, the plan is to include bedside bronchoscopy with airway evaluation. 3. Hypertensive urgency The patient does have a baseline history of hypertension, but was reportedly only on a small dose of Norvasc as an outpatient. His blood pressures have been quite labile during his admission with large fluctuations in his systolic parameters. He did require a nicardipine drip, as his systolic pressures upon admission to the ICU were greater than 200 mmHg. I am going to start the patient today on a basal dose of hydrochlorothiazide with additional antihypertensive medication and initiation/titration, based upon the patient's hemodynamic response. 4. Polycythemia This appears to be likely secondary to hemoconcentration, as the patient's hemoglobin concentration improved following volume expansion. 5. Personal history of alcohol dependence The patient reportedly drinks 6 beers daily but is never had significant withdrawal symptoms and/or withdrawal seizures. Initiate CIWA protocol and monitor for any signs of withdrawal. ADDENDUM: Shortly after extubation this morning, the patient was noted to be increasingly lethargic and hypoxic. He failed attempts at noninvasive positive pressure ventilation and had to be reintubated. An arterial blood gas obtained shortly after intubation did reveal evidence of hypercarbia with a PCO2 of 67. Due to the hypoxia that developed, a stat CTA chest was obtained which did reveal significant right-sided pulmonary embolism and right lower lobe airspace disease with volume loss. The family was updated on the patient's clinical state. I discussed the idea of proceeding with a bedside bronchoscopy for airway evaluation and bronchial alveolar lavage. Following a discussion of the risks and benefits of the procedure, the patient's daughter has elected to proceed. Informed consent was obtained. Procedure will be completed later this afternoon. TIME: 85 minutes of critical care time, independent of procedures, was spent addressing the patient's acute encephalopathy, acute respiratory failure, hypertensive emergency, right lower lobe pneumonia, pulmonary embolism, history of alcohol dependence, review of all data and collaboration with the care team. ([id number]) Code Visit Procedures: 14483 Critial Care Addl 30 Min 9xxxx: [id number] Critical care first hour
--- NOTE | 2017-10-24 07:23 | PN_ITS ---
Subjective: The patient was seen and examined at the bedside this morning. Events from the last 24 hours have been reviewed. The patient is currently afebrile, hemodynamically stable and maintaining appropriate oxygen saturations on an FiO2 requirement of 30%. The patient's blood pressures have been quite tenuous with large systolic fluctuations over the last 24 hours. He did have to be restarted on his Cardene drip overnight due to elevated systolic blood pressures. Per respiratory therapy, the patient initially failed his spontaneous breathing trial this morning. When placed on spontaneous mode mechanical ventilation with a pressure support of 5 and PEEP of 5, the patient was noted to draw low tidal volumes and reportedly became hypoxic. He was then placed back on assist control mode of mechanical ventilation. Upon my review of the patient this morning, he appeared to be resting comfortably in bed on a minimal amount of fentanyl for pain. He does report back pain at the present time. I did transition him back over to spontaneous mode of mechanical ventilation with a pressure support of 10 and PEEP of 5. His tidal volumes improved without hypoxia noted. He is alert, cooperative and following commands appropriately. Objective: The patient's most recent lab work, culture data and imaging studies have all been personally reviewed. Initial head CT dated October 22 was negative, only revealing chronic involutional changes. Neck CTA dated October 22 revealed less than 50% stenosis of the proximal internal carotid arteries bilaterally, near complete occlusion of the proximal vertebral artery on the right and moderate focal stenosis at the origin of the left vertebral artery. Brain MRI dated October 23 revealed involutional changes of the brain without MR evidence of acute infarction. Head/neck MRA completed on October 23 revealed nonvisualization of the right intradural vertebral artery suggesting possible thrombus. There was also note of apparent thrombus of the left superior cerebellar artery. EEG also completed on October 23 revealed a normal awake and drowsy EEG without epileptiform discharges or electrographic seizure activity. Surface echocardiogram revealed normal LV size and function with an ejection fraction of 55% and evidence of stage I diastolic dysfunction. General: - - Remains intubated, minimally sedated and mechanically ventilated. Currently tolerating CPAP with a pressure support of 10 and PEEP of 5. HEENT: Atraumatic, PERRLA, Normocephalic Oral: No Gingival or Mucosal Lesions/ Ulcerations, - - Endotracheal and OG tubes in place. Neck: Supple, No Nodes, Trachea Midline Lungs: No rhonchi, No wheeze, No rales, Diminished Cardiovascular: Normal S1, Normal S2, No murmurs, No rub noted, No Gallop, Tachycardic Abdomen: Bowel Sounds Present, Soft, Non Tender, Non-Distended Extremities: No clubbing, No cyanosis, No edema Skin: No breakdown Musculoskeletal: No Muscle Wasting Lymphatic: No Cervical, Supraclavicular, or Inguinal Adenopathy Neurological: - - No focal neurological deficits. Attempts to move all extremities spontaneously. Alert and following commands appropriately. Vital Signs Temp Pulse Resp BP Pulse Ox 97.9 F 87 15 164/82 H 98 10/24/17 04:00 10/24/17 06:00 10/24/17 06:00 10/24/17 06:00 10/24/17 06:00 Oxygen Flow Rate (L/min) 2 Oxygen Delivery Method Mechanical Ventilator Weight: 189 lb 13.088 oz Body Mass Index (BMI) 24.5 Finger Stick Blood Glucose 0 Intake and Output for Last 24 Hours 10/22/17 10/23/17 10/24/17 23:59 23:59 23:59 Intake Total 480 / 480 1865.0 / 1865.0 801.8 / 801.8 Output Total 1050 / 1050 350 / 350 Balance 480 / 480 815.0 / 815.0 451.8 / 451.8 Labs (Last 48 Hours) 10/23/17 10/23/17 10/23/17 05:20 05:20 07:08 WBC 12.7 H RBC 5.63 Hgb 18.2 H* Hct 52.5 MCV 93.3 MCH 32.3 H MCHC 34.7 RDW 13.2 RDW Differential 44.4 H Plt Count 276 MPV 9.4 Immature Gran % (Auto) 0.400 Neut % (Auto) 89.5 H Lymph % (Auto) 4.2 L Winston % (Auto) 5.8 Eos % (Auto) 0.0 Baso % (Auto) 0.1 Absolute Neuts (auto) 11.4 H Absolute Lymphs (auto) 0.53 L Total Counted Not Reportable Diff Path Review May foll Specimen Type Sample Site pH Bicarbonate Actual POC Total CO2 Base Excess O2 Saturation O2 % ABG pCO2 ABG pO2 Jermaine Test Respiration Rate O2 Delivery Device Minute Volume Vent Mode Tidal Volume POC PEEP Blood Gas Notified Whom Blood Gas Notified Time Sodium 139 Potassium 4.1 Chloride 102 Carbon Dioxide 26.0 Anion Gap 11 BUN 12 Creatinine 0.83 Estim Creat Clear Calc 85.57 Est GFR (MDRD) Af Amer 116 Est GFR (MDRD) Non-Af 96 BUN/Creatinine Ratio 14.5 Glucose 138 H Calcium 9.1 Ammonia Total Creatine Kinase Triglycerides 151 Cholesterol 219 H LDL Cholesterol 143 H VLDL Cholesterol 30 HDL Cholesterol 46 Whole Bld Vitamin B1 Vitamin B12 TSH POC Glucose 198 H 10/23/17 10/23/17 10/23/17 10:51 10:55 10:55 WBC RBC Hgb Hct MCV MCH MCHC RDW RDW Differential Plt Count MPV Immature Gran % (Auto) Neut % (Auto) Lymph % (Auto) Winston % (Auto) Eos % (Auto) Baso % (Auto) Absolute Neuts (auto) Absolute Lymphs (auto) Total Counted Diff Path Review Specimen Type ART Sample Site R Radial pH 7.34 L Bicarbonate Actual 25.2 POC Total CO2 27 Base Excess -1 O2 Saturation 97 O2 % 50 ABG pCO2 46.4 H ABG pO2 92 Jermaine Test POS Respiration Rate 12 O2 Delivery Device Vent Minute Volume 10.00 Vent Mode A-C Tidal Volume 450 POC PEEP 5 Blood Gas Notified Whom ICU MD Blood Gas Notified Time 1043 Sodium Potassium Chloride Carbon Dioxide Anion Gap BUN Creatinine Estim Creat Clear Calc Est GFR (MDRD) Af Amer Est GFR (MDRD) Non-Af BUN/Creatinine Ratio Glucose Calcium Ammonia Total Creatine Kinase Triglycerides Cholesterol LDL Cholesterol VLDL Cholesterol HDL Cholesterol Whole Bld Vitamin B1 Vitamin B12 352 TSH 0.80 POC Glucose 10/23/17 10/23/17 10/23/17 10:55 10:55 10:55 WBC RBC Hgb Hct MCV MCH MCHC RDW RDW Differential Plt Count MPV Immature Gran % (Auto) Neut % (Auto) Lymph % (Auto) Winston % (Auto) Eos % (Auto) Baso % (Auto) Absolute Neuts (auto) Absolute Lymphs (auto) Total Counted Diff Path Review Specimen Type Sample Site pH Bicarbonate Actual POC Total CO2 Base Excess O2 Saturation O2 % ABG pCO2 ABG pO2 Jermaine Test Respiration Rate O2 Delivery Device Minute Volume Vent Mode Tidal Volume POC PEEP Blood Gas Notified Whom Blood Gas Notified Time Sodium Potassium Chloride Carbon Dioxide Anion Gap BUN Creatinine Estim Creat Clear Calc Est GFR (MDRD) Af Amer Est GFR (MDRD) Non-Af BUN/Creatinine Ratio Glucose Calcium Ammonia 14.0 Total Creatine Kinase 267 Triglycerides 94 Cholesterol LDL Cholesterol VLDL Cholesterol HDL Cholesterol Whole Bld Vitamin B1 Pending Vitamin B12 TSH POC Glucose 10/24/17 10/24/17 06:58 06:58 WBC 17.3 H RBC 4.99 Hgb 16.5 Hct 47.3 MCV 94.8 H MCH 33.1 H MCHC 34.9 RDW 13.4 RDW Differential 45.0 H Plt Count 253 MPV 9.0 Immature Gran % (Auto) 0.400 Neut % (Auto) 86.7 H Lymph % (Auto) 3.5 L Winston % (Auto) 9.2 Eos % (Auto) 0.1 Baso % (Auto) 0.1 Absolute Neuts (auto) 15.0 H Absolute Lymphs (auto) 0.60 L Total Counted Pending Diff Path Review Specimen Type Sample Site pH Bicarbonate Actual POC Total CO2 Base Excess O2 Saturation O2 % ABG pCO2 ABG pO2 Jermaine Test Respiration Rate O2 Delivery Device Minute Volume Vent Mode Tidal Volume POC PEEP Blood Gas Notified Whom Blood Gas Notified Time Sodium 138 Potassium 3.8 Chloride 101 Carbon Dioxide 29.0 Anion Gap 8 BUN 13 Creatinine 0.74 Estim Creat Clear Calc 71.02 Est GFR (MDRD) Af Amer 133 Est GFR (MDRD) Non-Af 110 BUN/Creatinine Ratio 17.7 Glucose 132 H Calcium 8.3 L Ammonia Total Creatine Kinase Triglycerides Cholesterol LDL Cholesterol VLDL Cholesterol HDL Cholesterol Whole Bld Vitamin B1 Vitamin B12 TSH POC Glucose Clinical Impression(s) from Imaging Studies Brain CT 10/22/17 07:53 IMPRESSION: Chronic involutional changes of the brain. Electronically Signed: Tom Garcia MD at 8:42 EDT Tel [phone], Service support , Chest X-Ray 10/22/17 08:20 IMPRESSION: Cardiomegaly. Mild increased markings at the lung bases suggestive of linear atelectasis and/or scarring. Electronically Signed: Tom Garcia MD at 8:43 EDT Tel [phone], Service support , Neck CTA 10/22/17 14:41 IMPRESSION: Less than 50% stenosis proximal internal carotid arteries bilaterally due to mixed plaque. Occlusion or near occlusion proximal vertebral artery on the right. Moderate focal stenosis at the origin of the left vertebral artery. Electronically Signed: Bhavin Jonas MD at 16:12 EDT , Service support , Brain CT 10/23/17 05:55 IMPRESSION: Generalized brain atrophy. No acute findings in the brain Electronically Signed: Vaibhav GoodwinJeniferTrace, at 6:08 EDT Tel , Service support , Brain MRI 10/23/17 07:17 IMPRESSION: 1. Involutional changes of the brain, as described above. 2. No MR evidence for acute infarct. N.B. : The above information has been verbally conveyed by Aimee Osei MD to Marry Singh [facility], on 10/23/2017 08:24:08 (ET). Electronically Signed: Aimee Osei MD at 8:22 EDT , Service support , Head MRA 10/23/17 08:12 IMPRESSION: 1. Nonvisualization of the right intradural vertebral artery suggesting possible thrombosis. 2. 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 3. No MRA evidence for aneurysm. N.B. : The above information has been verbally conveyed by Aimee Osei MD to Mateo LAWSON, on 10/23/2017 10:08:03 (ET). Electronically Signed: Aimee Osei MD at 9:55 EDT , Service support , Neck MRA 10/23/17 08:12 IMPRESSION: 1. 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 2. Nonhemodynamically significant stenoses of the left vertebral artery, common carotid and internal carotid arteries. N.B. : The above information has been verbally conveyed by Aimee Osei MD to Mateo Manzo, on 10/23/2017 10:07:17 (ET). Electronically Signed: Aimee Osei MD at 10:01 EDT , Service support , Chest X-Ray 10/23/17 09:39 IMPRESSION: The tip of the endotracheal tube is at 5.5 cm proximal to the bertha. The tip of the orogastric tube is in the body of the stomach. Bibasilar atelectasis and/or infiltrate slightly worse on the right lung base. Electronically Signed: Tom Garcia MD at 11:12 EDT Tel [phone], Service support , Medical Necessity - Tobacco Use Smoking Status: Former smoker Assessment/Plan All Active Problems CVA (cerebral vascular accident) (Acute) Unresponsive episode (Acute) RECOMMENDATIONS: 1. Obtain repeat arterial blood gas in 1 hour. 2. Restart propofol and fentanyl for sedation. 3. Okay to restart tube feeds once gastric tube positioning is confirmed. 4. Will perform bedside bronchoscopy this afternoon and obtain bronchial alveolar lavage. 5. Start broad-spectrum antibiotics. Check strep and urine Legionella antigens. 6. Start heparin drip, given newly diagnosed PE and discontinue Lovenox. 7. Continue nicardipine for control of hypertensive urgency. IMPRESSIONS: 1. Acute encephalopathy Differential etiologies initially included ischemic CVA, nonconvulsive status epilepticus and reversible posterior leukoencephalopathy syndrome. However, subsequent workup including MRI/MRA head and neck revealed no acute infarction. EEG demonstrated no evidence of epileptiform discharges or seizure activity. Therefore, the most likely etiology for the patient's encephalopathy was secondary to his profound hypertension. At the present time, the patient's mentation significantly improved. He is alert and following commands appropriately without focal neurological deficits. Given the significant improvement noted, the patient was felt to be appropriate for a trial of extubation this morning. His endotracheal tube was removed under my direct supervision. However, a short time later, the patient was noted to be less responsive with increasing hypoxemia. Attempts at the use of noninvasive positive pressure ventilation was unsuccessful. Therefore, the decision was made to reintubate the patient. The patient was noted to be hypercarbic on arterial blood gas shortly after intubation. 2. Acute hypercarbic and hypoxemic respiratory failure secondary to pulmonary embolism and right lower lobe airspace disease The patient was emergently intubated on the morning of October 23 for airway protection due to #1. The patient failed his attempted extubation on the morning of October 24. An arterial blood gas obtained shortly after intubation revealed hypercarbia. In addition, the patient was noted to be increasingly hypoxic upon extubation. Therefore, a stat CTA chest was obtained , which revealed significant right-sided pulmonary embolization along with right lower lobe airspace disease and volume loss. Over concerns for potential mucus impaction, the plan is to include bedside bronchoscopy with airway evaluation. 3. Hypertensive urgency The patient does have a baseline history of hypertension, but was reportedly only on a small dose of Norvasc as an outpatient. His blood pressures have been quite labile during his admission with large fluctuations in his systolic parameters. He did require a nicardipine drip, as his systolic pressures upon admission to the ICU were greater than 200 mmHg. I am going to start the patient today on a basal dose of hydrochlorothiazide with additional antihypertensive medication and initiation/titration, based upon the patient's hemodynamic response. 4. Polycythemia This appears to be likely secondary to hemoconcentration, as the patient's hemoglobin concentration improved following volume expansion. 5. Personal history of alcohol dependence The patient reportedly drinks 6 beers daily but is never had significant withdrawal symptoms and/or withdrawal seizures. Initiate CIWA protocol and monitor for any signs of withdrawal. ADDENDUM: Shortly after extubation this morning, the patient was noted to be increasingly lethargic and hypoxic. He failed attempts at noninvasive positive pressure ventilation and had to be reintubated. An arterial blood gas obtained shortly after intubation did reveal evidence of hypercarbia with a PCO2 of 67. Due to the hypoxia that developed, a stat CTA chest was obtained which did reveal significant right-sided pulmonary embolism and right lower lobe airspace disease with volume loss. The family was updated on the patient's clinical state. I discussed the idea of proceeding with a bedside bronchoscopy for airway evaluation and bronchial alveolar lavage. Following a discussion of the risks and benefits of the procedure, the patient's daughter has elected to proceed. Informed consent was obtained. Procedure will be completed later this afternoon. TIME: 85 minutes of critical care time, independent of procedures, was spent addressing the patient's acute encephalopathy, acute respiratory failure, hypertensive emergency, right lower lobe pneumonia, pulmonary embolism, history of alcohol dependence, review of all data and collaboration with the care team. ([id number]) Code Visit Procedures: 38662 Critial Care Addl 30 Min 9xxxx: 17220 Critical care first hour
[2017-10-24] MEDS: hydroCHLOROthiazide 25 MG Tablet GT (07:26)
[2017-10-24] MEDS: Aspirin 81 MG TAB.CHEW PO (07:27)
[2017-10-24] MEDS: Chlorhexidine 15 ML PO ×2 (07:28→22:19)
[2017-10-24] MEDS: Enoxaparin 40 MG/0.4 ML Syringe SC (07:28)
--- NOTE | 2017-10-24 08:59 | NURSING ---
fent 50mcg/ versed 4mg ivp for reintubation #7.[address] de souza
--- NOTE | 2017-10-24 09:04 | RAD_ITS ---
STUDY: X-RAY CHEST REASON FOR EXAM: Male, 77 years old. Shortness of breath. TECHNIQUE: Single AP portable view of the chest. COMPARISON: Comparison is made with prior examination dated October 23, 2017. FINDINGS: An endotracheal tube is in situ. The tip is at 6.3 cm proximal to the bertha. An oral gastric tube is seen with the tip in the body of the stomach. There now is evidence of volume loss in the right lower lobe with blunting of the right costophrenic angle. Minimal increased markings at the left lung base. Normal size heart. Normal mediastinum and elizabeth. Normal visualized pulmonary arteries. There is atherosclerotic tortuosity of the aortic arch and descending thoracic aorta. There are degenerative changes of the visualized thoracic spine. Normal visualized ribs, clavicles, and shoulders. There is no demonstrated abnormality of the visualized soft tissue structures of the upper abdomen. RAD/Chest 1 View IMPRESSION: Right lower lobe fine loss with small right pleural effusion. Endobronchial mucous plug should be ruled out. Electronically Signed: Tom Garcia MD at 11:00 EDT Tel [phone], Service support ,
--- NOTE | 2017-10-24 09:15 | CT_ITS ---
STUDY: CTA CHEST REASON FOR EXAM: Male, 77 years old. Hypoxia. Failed extubation attempt. Hypertensive encephalopathy. RADIATION DOSAGE (If Supplied By Facility): CTDIvol = ( 15.90 ) mGy, DLP = ( 658.34 ) mGycm TECHNIQUE: The examination was performed with the intravenous administration of 100mL ml of Isovue 370 contrast material. Post-processing of the angiographic images was performed, with multiplanar reformation and 3D reconstruction. Individualized dose optimization techniques were used for this CT. COMPARISON: None. FINDINGS: A normal gastric tube is seen. An endotracheal tube is present and in good position. There is evidence of intraluminal thrombus involving the right interlobar pulmonary artery as well as the right upper lobe pulmonary arterial branches. This is in keeping with the pulmonary embolization. Normal thoracic aorta and visualized great vessels. There is no demonstrated aortic dissection. Normal heart and pericardium. Normal mediastinum. Normal hilar regions. There is evidence of a soft tissue density or fluid in the right interlobar bronchus with the consolidation and/or collapse of the right lower lobe. Airspace disease is seen within the right lower lobe. There is elevation of the right hemidiaphragm. There is volume loss in the right hemithorax. Minimal pleural thickening of the left pleural space. Calcified. Pleural plaques at the left lung base. Normal chest wall structures. There are degenerative changes of thoracic spine. Increased kyphosis. Normal visualized upper abdomen. CT/CTA Chest W/WO Contrast IMPRESSION: Pulmonary emboli involving the right upper lobe pulmonary arterial branches as well as the interlobar artery. Volume loss in the right hemithorax with airspace disease and/or atelectasis and volume loss in the right lower lobe. Fluid or soft tissue density seen within the right interlobar bronchus. The results were communicated to the attending physician. Electronically Signed: Tom Garcia MD at 10:37 EDT Tel [phone], Service support ,
[2017-10-24 09:21] LABS: Allen Test POS; Base Excess 2 mmol/L (-2 to +2); Bicarbonate 29.3 mmol/L (22-26); Blood Gas Specimen Type ART; FI02 100; PO2 69 mmHG (75-100); SITE R Radial; SO2 90 % (95-99); Time Given 916; Total Carbon Dioxide 31 mmol/L; pCO2 66.7 mmHg (35-45); pH 7.25 (7.35-7.45)
[2017-10-24] MEDS: Thiamine Hydrochloride 100 MG Tablet 200 MG GT (10:37)
[2017-10-24] MEDS: Polyethylene Glycol 3350 17 GM PACKET GT ×2 (10:38→22:24)
[2017-10-24] MEDS: Famotidine 20 MG Tablet GT ×2 (10:38→22:23)
[2017-10-24] MEDS: Folic Acid 1 MG Tablet GT (10:38)
[2017-10-24] MEDS: Senna/Docusate Sodium 1 Tablet 2 TABLET GT ×2 (10:39→22:23)
[2017-10-24 11:22] LABS: Partial Thromboplast Time 31.8 Seconds (24.1-36.2)
[2017-10-24 11:31] LABS: Allen Test POS; Base Excess 3 mmol/L (-2 to +2); Bicarbonate 29.4 mmol/L (22-26); Blood Gas Specimen Type ART; FI02 100; Mode A-C; O2 Delivery Device Vent; PEEP 10; PO2 93 mmHG (75-100); RR 12; SITE R Brachial; SO2 96 % (95-99); Time Given 1120; Total Carbon Dioxide 31 mmol/L; Vt 450; pCO2 60.7 mmHg (35-45); pH 7.29 (7.35-7.45)
[2017-10-24] MEDS: HEPARIN/D5w 25,000 UNITS 25,000 UNITS/250 ML IV.SOLN. 12 UNITS IV (11:59)
[2017-10-24] MEDS: Heparin Injection (Vial) 5,000 UNIT/ML VIAL 6000 UNIT IV (11:59)
--- NOTE | 2017-10-24 13:11 | PCM.OP.BLANK ---
Operative Report Date of Procedure: 10/24/17 DATE OF SERVICE: October 24, 2017 BRIEF HISTORY: The patient is a 77-year-old male who initially presented to the hospital with symptoms concerning for stroke. Subsequent workup revealed no evidence for a CVA, however, the patient did have likely hypertensive encephalopathy coupled with newly discovered pulmonary infectious process and pulmonary embolism. The patient did have to be intubated for worsening encephalopathy in the setting of hypercarbia. PROCEDURE: Bronchoscopy with bronchial alveolar lavage INDICATION: Abnormal chest CT PHYSICIAN: Ezequiel Brewer DO ANESTHETIC: Propofol and fentanyl drips COMPLICATIONS: No immediate complications noted. DESCRIPTION OF PROCEDURE: A history and physical has been performed. Please see inpatient consultation note. The patient's medications and allergies have been reviewed. Informed consent was obtained from the patient's daughter. The risks and benefits of the procedure and sedation options and risks were discussed with the patient at length. All questions were answered and informed consent was obtained. The patient's identification and proposed procedure were verified prior to the procedure by the physician. ASA Grade Assessment: II After obtaining informed consent, the bronchoscope was inserted through the patient's endotracheal tube and advanced to the tracheal bronchial tree bilaterally. This procedure was accomplished without difficulty. The patient tolerated the procedure well. FINDINGS: Thick, tenacious mucopurulent secretions were noted throughout the tracheal bronchial trees bilaterally, especially pronounced throughout the right tracheal bronchial tree. Mucopurulent secretions were present left mainstem bronchus, but were more widespread throughout the right upper lobe, right middle lobe and, in particular, within the right lower lobe. A bronchoalveolar lavage was obtained from the right middle lobe and was thick and tenacious in appearance. In addition, a bronchial washing sample was obtained from the left mainstem. Both samples were sent for culture. Following this, airway clearance maneuvers were performed to remove as much of the purulent secretions as possible. The bronchoscope was then removed without complication. IMPRESSION: 1. Thick mucopurulent, tenacious secretions noted throughout the bilateral tracheal bronchial trees, right greater than left. No endobronchial lesions were identified. 2. Bronchial alveolar lavage (BAL) was completed within the right middle lobe and sent for fluid cell count and culture. 3. Bronchial washing was obtained from the left mainstem bronchus and sent for culture. RECOMMENDATIONS: 1. Continue broad-spectrum antibiotics, pending culture results. Code Visit 9xxxx: Other Procedure See Report - [id number], [id number]
[2017-10-24 14:17] LABS: Pathologist Review Reviewed
[2017-10-24 14:17] LABS: M R Staph aureus DNA By PCR Negative (Negative); Probe Check PASS; Specimen Processing Control PASS
[2017-10-24] MEDS: Vital AF 1.2 Cal Liquid 1,000 ML 70 ML GT (15:16)
--- NOTE | 2017-10-24 15:42 | PCM.PN.HOSP ---
Patient Problems: Active and Suspected Problems CVA (cerebral vascular accident) (Acute) Unresponsive episode (Acute) Subjective: f/u for hypertensive encephalopathy Was extubated but then desaturated significantly and had tpo be reintubated and placed back on MV CT showing Rt lower lobe collapse and emboli in RUL Vitals/I&O's: Vital Signs Temp Pulse Resp BP Pulse Ox 98.1 F 89 16 151/98 H 98 10/24/17 12:00 10/24/17 15:15 10/24/17 14:57 10/24/17 14:00 10/24/17 15:15 Oxygen Flow Rate (L/min) 2 Oxygen Delivery Method Mechanical Ventilator Weight: 86.1 kg Body Mass Index (BMI) 24.5 Finger Stick Blood Glucose 0 Intake and Output for Last 24 Hours 10/22/17 10/23/17 10/24/17 23:59 23:59 23:59 Intake Total 480 / 480 1865.0 / 1865.0 1871.8 / 1871.8 Output Total 1050 / 1050 1050 / 1050 Balance 480 / 480 815.0 / 815.0 821.8 / 821.8 General: - - sedated lightly HEENT: Atraumatic Oral: Moist Mucosa Neck: Supple Lungs: - - diminished BS and air entry in the right lung/hemithorax Cardiovascular: Regular rate, Regular Rhythm, Normal S1, Normal S2 Abdomen: Bowel Sounds Present, Soft, Non Tender, Non-Distended, No Hepato-splenomegaly, Obese Extremities: No clubbing, No edema Skin: No rashes Neurological: Neuro grossly intact Microbiology Past 72 Hours 10/24/17 11:25 Sputum, Induced/Lukens Gram Stain - Final 10/24/17 11:20 Urine Catheter - Ernst Streptococcus pneumoniae Antigen (M - Final 10/24/17 11:20 Urine Catheter - Ernst Legionella Antigen - Final Laboratory Results 10/23/17 05:20: Diff Path Review Reviewed 10/24/17 06:58: WBC 17.3 H, RBC 4.99, Hgb 16.5, Hct 47.3, MCV 94.8 H, MCH 33.1 H, MCHC 34.9, RDW 13.4, RDW Differential 45.0 H, Plt Count 253, MPV 9.0, Immature Gran % (Auto) 0.400, Neut % (Auto) 86.7 H, Lymph % (Auto) 3.5 L, [place] % (Auto) 9.2, Eos % (Auto) 0.1, Baso % (Auto) 0.1, Absolute Neuts (auto) 15.0 H, Absolute Lymphs (auto) 0.60 L, Total Counted Not Reportable, Differential Comment COMMENT, Diff Path Review June10/24/17 06:58: Sodium 138, Potassium 3.8, Chloride 101, Carbon Dioxide 29.0, Anion Gap 8, BUN 13, Creatinine 0.74, Estim Creat Clear Calc 71.02, Est GFR (MDRD) Af Amer 133, Est GFR (MDRD) Non-Af 110, BUN/Creatinine Ratio 17.7, Glucose 132 H, Calcium 8.3 L 10/24/17 09:16: Specimen Type ART, Sample Site R Radial, pH 7.25 L, Bicarbonate Actual 29.3 H, POC Total CO2 31, Base Excess 2, O2 Saturation 90 L, O2 % 100, ABG pCO2 66.7 H, ABG pO2 69 L, Jermaine Test POS, O2 Delivery Device Ambu, Blood Gas Notified Whom ICU MD, Blood Gas Notified Time 916 10/24/17 11:00: APTT 31.8 10/24/17 11:00: MRSA (PCR) Negative 10/24/17 11:27: Specimen Type ART, Sample Site R Brachial, pH 7.29 L, Bicarbonate Actual 29.4 H, POC Total CO2 31, Base Excess 3 H, O2 Saturation 96, O2 % 100, ABG pCO2 60.7 H, ABG pO2 93, Jermaine Test POS, Respiration Rate 12, O2 Delivery Device Vent, Minute Volume 6.00, Vent Mode A-C, Tidal Volume 450, POC PEEP 10, Blood Gas Notified Whom ICU MD, Blood Gas Notified Time 1120 10/24/17 : Fluid Source Pending, Fluid Color Pending, Fluid Appearance Pending, Fluid WBC Pending, Fluid RBC Pending, Fluid Tot Cell Count Pending, Fl Pathologist Comment Pending, Fluid Comment 2 Pending Current Medications Aspirin (Aspirin, Baby) 81 mg GT DAILY [facility] Atorvastatin Calcium (Lipitor) 40 mg GT QHS [facility] Chlorhexidine Gluconate () 15 ml PO BID [facility] Last Admin: 10/24/17 07:28 Dose: 15 ml Chlorhexidine Gluconate () 1 each TOPICAL DAILY [facility] Last Admin: 10/24/17 02:33 Dose: 1 each Famotidine (Pepcid) 20 mg GT BID [facility] Last Admin: 10/24/17 10:38 Dose: 20 mg Folic Acid (Folic Acid) 1 mg GT DAILY [facility] Last Admin: 10/24/17 10:38 Dose: 1 mg Heparin Sodium (Porcine) (Heparin Na) 0 unit IV UD PRN PRN Reason: Protocol Hydrochlorothiazide (Hctz) 25 mg GT DAILY [facility] Last Admin: 10/24/17 07:26 Dose: 25 mg Nicardipine HCl 25 mg/ Sodium (Chloride) 250 mls @ 50 mls/hr IV .Q5H [facility]; 5 MG/HR PRN Reason: Protocol Last Admin: 10/24/17 07:55 Dose: 50 mls/hr Dextrose/Sodium Chloride () 1,000 mls @ 125 mls/hr IV .Q8H [facility] Last Admin: 10/24/17 10:35 Dose: 125 mls/hr Propofol (Diprivan) 1,000 mg in 100 mls @ 2.535 mls/hr CONT INF .Q12H [facility]; 5 MCG/KG/MIN PRN Reason: Protocol Last Admin: 10/24/17 02:00 Dose: 2.535 mls/hr Fentanyl () 100 mls @ 5 mls/hr IV .Q20H [facility] Last Admin: 10/24/17 09:25 Dose: 5 mls/hr Enteral Nutritional Formula (Vital Af 1.2 Maico Liquid) 1,000 mls @ 70 mls/hr GT .[id number] [facility] Last Admin: 10/24/17 15:16 Dose: 70 mls/hr Piperacillin Sod/Tazobactam Sod (Zosyn) 3.375 gm in 50 mls @ 12.5 mls/hr IV Q8 [facility] Heparin Sodium/Dextrose () 25,000 units in 250 mls @ 12 mls/hr IV .[id number] [facility]; As Directed PRN Reason: Protocol Last Admin: 10/24/17 11:59 Dose: 12 mls/hr Labetalol HCl (Trandate) 10 mg IV Q10M PRN PRN PRN Reason: Hypertensive Emergency Polyethylene Glycol (Miralax) 17 gm GT BID [facility] Last Admin: 10/24/17 10:38 Dose: 17 gm Senna/Docusate Sodium (Senokot-S, Krista-Colace) 2 tablet GT BID [facility] Last Admin: 10/24/17 10:39 Dose: 2 tablet Sodium Chloride () 5 - 30 ml IV UD PRN PRN Reason: SALINE FLUSH Thiamine HCl (Vitamin B1) 200 mg GT DAILY [facility] Last Admin: 10/24/17 10:37 Dose: 200 mg Medical Necessity - Tobacco Use Smoking Status: Former smoker Assessment/Plan All Active Problems CVA (cerebral vascular accident) (Acute) Unresponsive episode (Acute) 1. Acute encephalopathy. Appears to be secondary to hypertensive encephalopathy given markedly elevated BP currently and on presentation. PRESS had been considered as a differential as well. This appears to be improved 2. Acute hypoxic respiratory failure. Secondary to right lung atelectasis from severe mucus plugging and perhaps from PE as well. patient underwent bronchoscopy and this was the finding. BAL done and airways cleared. Appreciate input from pulmonology/critical care immensely 3. Right lung pulmonary embolism. Noted and reported on chest CT-PA. No clinical findings to suggest DVT in periphery. Patient has been started on HBW. Will consider transitioning to one of the NOAC/DOAC 4. TIA. patient had transient weakness of extremity and slurring of speech with some dysphasia. Likely this was a manifestation of hypertensive encephalopathy. Neurology on consult and is following. 5. Hypertensive emergency. Controlled initially with nicardipine drip and now on HCTZ. Consider adding lisinopril if needed 6. Alcohol abuse. May need to monitor for etoh withdrawal. IV thiamine for now Code Visit Inpatient E&M: 96271 Subs Hosp L3
--- NOTE | 2017-10-24 15:51 | PN_ITS ---
Patient Problems: Active and Suspected Problems CVA (cerebral vascular accident) (Acute) Unresponsive episode (Acute) Subjective: f/u for hypertensive encephalopathy Was extubated but then desaturated significantly and had tpo be reintubated and placed back on MV CT showing Rt lower lobe collapse and emboli in RUL Vitals/I&O's: Vital Signs Temp Pulse Resp BP Pulse Ox 98.1 F 89 16 151/98 H 98 10/24/17 12:00 10/24/17 15:15 10/24/17 14:57 10/24/17 14:00 10/24/17 15:15 Oxygen Flow Rate (L/min) 2 Oxygen Delivery Method Mechanical Ventilator Weight: 86.1 kg Body Mass Index (BMI) 24.5 Finger Stick Blood Glucose 0 Intake and Output for Last 24 Hours 10/22/17 10/23/17 10/24/17 23:59 23:59 23:59 Intake Total 480 / 480 1865.0 / 1865.0 1871.8 / 1871.8 Output Total 1050 / 1050 1050 / 1050 Balance 480 / 480 815.0 / 815.0 821.8 / 821.8 General: - - sedated lightly HEENT: Atraumatic Oral: Moist Mucosa Neck: Supple Lungs: - - diminished BS and air entry in the right lung/hemithorax Cardiovascular: Regular rate, Regular Rhythm, Normal S1, Normal S2 Abdomen: Bowel Sounds Present, Soft, Non Tender, Non-Distended, No Hepato- splenomegaly, Obese Extremities: No clubbing, No edema Skin: No rashes Neurological: Neuro grossly intact Microbiology Past 72 Hours 10/24/17 11:25 Sputum, Induced/Lukens Gram Stain - Final 10/24/17 11:20 Urine Catheter - Ernst Streptococcus pneumoniae Antigen (M - Final 10/24/17 11:20 Urine Catheter - Ernst Legionella Antigen - Final Laboratory Results 10/23/17 05:20: Diff Path Review Reviewed 10/24/17 06:58: WBC 17.3 H, RBC 4.99, Hgb 16.5, Hct 47.3, MCV 94.8 H, MCH 33.1 H , MCHC 34.9, RDW 13.4, RDW Differential 45.0 H, Plt Count 253, MPV 9.0, Immature Gran % (Auto) 0.400, Neut % (Auto) 86.7 H, Lymph % (Auto) 3.5 L, [place] % (Auto) 9.2, Eos % (Auto) 0.1, Baso % (Auto) 0.1, Absolute Neuts (auto) 15.0 H , Absolute Lymphs (auto) 0.60 L, Total Counted Not Reportable, Differential Comment COMMENT, Diff Path Review June10/24/17 06:58: Sodium 138, Potassium 3.8, Chloride 101, Carbon Dioxide 29.0, Anion Gap 8, BUN 13, Creatinine 0.74, Estim Creat Clear Calc 71.02, Est GFR ( MDRD) Af Amer 133, Est GFR (MDRD) Non-Af 110, BUN/Creatinine Ratio 17.7, Glucose 132 H, Calcium 8.3 L 10/24/17 09:16: Specimen Type ART, Sample Site R Radial, pH 7.25 L, Bicarbonate Actual 29.3 H, POC Total CO2 31, Base Excess 2, O2 Saturation 90 L, O2 % 100, ABG pCO2 66.7 H, ABG pO2 69 L, Jermaine Test POS, O2 Delivery Device Ambu, Blood Gas Notified Whom ICU MD, Blood Gas Notified Time 916 10/24/17 11:00: APTT 31.8 10/24/17 11:00: MRSA (PCR) Negative 10/24/17 11:27: Specimen Type ART, Sample Site R Brachial, pH 7.29 L, Bicarbonate Actual 29.4 H, POC Total CO2 31, Base Excess 3 H, O2 Saturation 96, O2 % 100, ABG pCO2 60.7 H, ABG pO2 93, Jermaine Test POS, Respiration Rate 12, O2 Delivery Device Vent, Minute Volume 6.00, Vent Mode A-C, Tidal Volume 450, POC PEEP 10, Blood Gas Notified Whom ICU MD, Blood Gas Notified Time 1120 10/24/17 : Fluid Source Pending, Fluid Color Pending, Fluid Appearance Pending, Fluid WBC Pending, Fluid RBC Pending, Fluid Tot Cell Count Pending, Fl Pathologist Comment Pending, Fluid Comment 2 Pending Current Medications Aspirin (Aspirin, Baby) 81 mg GT DAILY [facility] Atorvastatin Calcium (Lipitor) 40 mg GT QHS [facility] Chlorhexidine Gluconate () 15 ml PO BID [facility] Last Admin: 10/24/17 07:28 Dose: 15 ml Chlorhexidine Gluconate () 1 each TOPICAL DAILY [facility] Last Admin: 10/24/17 02:33 Dose: 1 each Famotidine (Pepcid) 20 mg GT BID [facility] Last Admin: 10/24/17 10:38 Dose: 20 mg Folic Acid (Folic Acid) 1 mg GT DAILY [facility] Last Admin: 10/24/17 10:38 Dose: 1 mg Heparin Sodium (Porcine) (Heparin Na) 0 unit IV UD PRN PRN Reason: Protocol Hydrochlorothiazide (Hctz) 25 mg GT DAILY [facility] Last Admin: 10/24/17 07:26 Dose: 25 mg Nicardipine HCl 25 mg/ Sodium (Chloride) 250 mls @ 50 mls/hr IV .Q5H [facility]; 5 MG/ HR PRN Reason: Protocol Last Admin: 10/24/17 07:55 Dose: 50 mls/hr Dextrose/Sodium Chloride () 1,000 mls @ 125 mls/hr IV .Q8H [facility] Last Admin: 10/24/17 10:35 Dose: 125 mls/hr Propofol (Diprivan) 1,000 mg in 100 mls @ 2.535 mls/hr CONT INF .Q12H [facility]; 5 MCG/KG/MIN PRN Reason: Protocol Last Admin: 10/24/17 02:00 Dose: 2.535 mls/hr Fentanyl () 100 mls @ 5 mls/hr IV .Q20H [facility] Last Admin: 10/24/17 09:25 Dose: 5 mls/hr Enteral Nutritional Formula (Vital Af 1.2 Maico Liquid) 1,000 mls @ 70 mls/hr GT .[id number] [facility] Last Admin: 10/24/17 15:16 Dose: 70 mls/hr Piperacillin Sod/Tazobactam Sod (Zosyn) 3.375 gm in 50 mls @ 12.5 mls/hr IV Q8 [facility] Heparin Sodium/Dextrose () 25,000 units in 250 mls @ 12 mls/hr IV .[id number] [facility] ; As Directed PRN Reason: Protocol Last Admin: 10/24/17 11:59 Dose: 12 mls/hr Labetalol HCl (Trandate) 10 mg IV Q10M PRN PRN PRN Reason: Hypertensive Emergency Polyethylene Glycol (Miralax) 17 gm GT BID [facility] Last Admin: 10/24/17 10:38 Dose: 17 gm Senna/Docusate Sodium (Senokot-S, Krista-Colace) 2 tablet GT BID [facility] Last Admin: 10/24/17 10:39 Dose: 2 tablet Sodium Chloride () 5 - 30 ml IV UD PRN PRN Reason: SALINE FLUSH Thiamine HCl (Vitamin B1) 200 mg GT DAILY [facility] Last Admin: 10/24/17 10:37 Dose: 200 mg Medical Necessity - Tobacco Use Smoking Status: Former smoker Assessment/Plan All Active Problems CVA (cerebral vascular accident) (Acute) Unresponsive episode (Acute) 1. Acute encephalopathy. Appears to be secondary to hypertensive encephalopathy given markedly elevated BP currently and on presentation. PRESS had been considered as a differential as well. This appears to be improved 2. Acute hypoxic respiratory failure. Secondary to right lung atelectasis from severe mucus plugging and perhaps from PE as well. patient underwent bronchoscopy and this was the finding. BAL done and airways cleared. Appreciate input from pulmonology/critical care immensely 3. Right lung pulmonary embolism. Noted and reported on chest CT-PA. No clinical findings to suggest DVT in periphery. Patient has been started on HBW. Will consider transitioning to one of the NOAC/DOAC 4. TIA. patient had transient weakness of extremity and slurring of speech with some dysphasia. Likely this was a manifestation of hypertensive encephalopathy. Neurology on consult and is following. 5. Hypertensive emergency. Controlled initially with nicardipine drip and now on HCTZ. Consider adding lisinopril if needed 6. Alcohol abuse. May need to monitor for etoh withdrawal. IV thiamine for now Code Visit Inpatient E&M: 86229 Subs Hosp L3
[2017-10-24 17:35] LABS: Appearance/Body Fluid TURBID; Color/Body Fluid LT YEL; Source- Body Fluid BRONCHIAL LAVAGE
[2017-10-24] MEDS: Lactated Ringers 500 ML 999 ML IV (18:20)
--- NOTE | 2017-10-24 18:22 | NURSING ---
Dr. Brewer informed bp 90/55, orders received to give 500cc bolus
[2017-10-24 18:55] LABS: Body Fluid QC Type(s) BF2Q,BF3Q; Lymphocytes 2 %; Monocytes 2 %; Neutrophil (Segs) 96 %
[2017-10-24 19:03] LABS: Partial Thromboplast Time > 250.0 Seconds (24.1-36.2)
[2017-10-24] MEDS: Piperacil/Tazobactam 3.375 GM/50 ML ML IV (22:19)
[2017-10-24] MEDS: Atorvastatin Calcium 40 MG Tablet GT (22:24)
[2017-10-25] VITALS (49 sets, daily range): BP systolic 84–211; BP diastolic 52–103; PULSE 62–97; RESP 14–17; TEMP 36.4–37.3; O2SAT 90–100
[2017-10-25 01:22] LABS: Partial Thromboplast Time 87.2 Seconds (24.1-36.2)
[2017-10-25] MEDS: Dext 5%-0.45% NS 1,000 ML 125 ML IV ×2 (03:50→18:38)
[2017-10-25] MEDS: Piperacil/Tazobactam 3.375 GM/50 ML ML IV ×3 (05:21→21:14)
[2017-10-25] MEDS: Propofol 10MG/Ml 1,000 MG/100 ML Bottle 2.535 MG CONT INF ×2 (05:21→18:38)
[2017-10-25] MEDS: CHLORHEXIDINE GLUC 2% CLOTH 1 EACH TOWELETTE TOPICAL (05:23)
--- NOTE | 2017-10-25 06:32 | NURSING ---
Positive blood culture results given to CHE Palomino.
--- NOTE | 2017-10-25 07:25 | PCM.PN.INT ---
Subjective: The patient was seen and examined at the bedside this morning. Events from the last 24 hours have been reviewed. The patient is currently afebrile, hemodynamically stable and maintaining appropriate oxygen saturations with an FiO2 requirement of 40%. The patient's nicardipine did have to be restarted this morning due to systolic blood pressures greater than 200 mmHg. The patient failed his spontaneous breathing trial this morning. Objective: The patient's most recent lab work, culture data and imaging studies have all been personally reviewed. Initial head CT dated October 22 was negative, only revealing chronic involutional changes. Neck CTA dated October 22 revealed less than 50% stenosis of the proximal internal carotid arteries bilaterally, near complete occlusion of the proximal vertebral artery on the right and moderate focal stenosis at the origin of the left vertebral artery. Brain MRI dated October 23 revealed involutional changes of the brain without MR evidence of acute infarction. Head/neck MRA completed on October 23 revealed nonvisualization of the right intradural vertebral artery suggesting possible thrombus. There was also note of apparent thrombus of the left superior cerebellar artery. EEG also completed on October 23 revealed a normal awake and drowsy EEG without epileptiform discharges or electrographic seizure activity. Surface echocardiogram revealed normal LV size and function with an ejection fraction of 55% and evidence of stage I diastolic dysfunction. CTA chest dated October 24 revealed extensive right-sided pulmonary emboli along with right sided airspace disease and volume loss. A bedside bronchoscopy was performed on October 24, which did reveal evidence of copious, tenacious secretions bilaterally. Strep and urine Legionella antigens were both negative. Urine culture is currently pending. Bronchial alveolar lavage culture data is pending. General: - - Intubated, sedated and mechanically ventilated. HEENT: Atraumatic, Normocephalic, Sluggish Pupils Oral: No Gingival or Mucosal Lesions/ Ulcerations, - - Endotracheal and OG tubes remain in place. Neck: Supple, No Nodes, Trachea Midline Lungs: No rhonchi, No wheeze, No rales, Diminished Cardiovascular: Regular rate, Regular Rhythm, Normal S1, Normal S2, No murmurs Abdomen: Bowel Sounds Present, Soft, Non Tender Extremities: No clubbing, No cyanosis, No edema Skin: No breakdown Musculoskeletal: No Muscle Wasting Lymphatic: No Cervical, Supraclavicular, or Inguinal Adenopathy Neurological: - - No focal neurological deficits. Attempts to move extremities. Will follow some simple commands. Vital Signs Temp Pulse Resp BP Pulse Ox 98.5 F 82 16 210/103 H 98 10/25/17 04:00 10/25/17 06:35 10/25/17 06:35 10/25/17 06:47 10/25/17 06:35 Oxygen Flow Rate (L/min) 2 Oxygen Delivery Method Mechanical Ventilator Weight: 196 lb 3.382 oz Body Mass Index (BMI) 24.5 Finger Stick Blood Glucose 0 Intake and Output for Last 24 Hours 10/23/17 10/24/17 10/25/17 23:59 23:59 23:59 Intake Total 1865.0 / 1865.0 3104.8 / 3104.8 3342.9 / 3342.9 Output Total 1050 / 1050 1400 / 1400 810 / 810 Balance 815.0 / 815.0 1704.8 / 1704.8 2532.9 / 2532.9 Labs (Last 48 Hours) 10/23/17 10/23/17 10/23/17 05:20 10:51 10:55 WBC RBC Hgb Hct MCV MCH MCHC RDW RDW Differential Plt Count MPV Immature Gran % (Auto) Neut % (Auto) Lymph % (Auto) [place] % (Auto) Eos % (Auto) Baso % (Auto) Absolute Neuts (auto) Absolute Lymphs (auto) Total Counted Differential Comment Diff Path Review Reviewed APTT Specimen Type ART Sample Site R Radial pH 7.34 L Bicarbonate Actual 25.2 POC Total CO2 27 Base Excess -1 O2 Saturation 97 O2 % 50 ABG pCO2 46.4 H ABG pO2 92 Jermaine Test POS Respiration Rate 12 O2 Delivery Device Vent Minute Volume 10.00 Vent Mode A-C Tidal Volume 450 POC PEEP 5 Blood Gas Notified Whom ICU MD Blood Gas Notified Time 1043 Sodium Potassium Chloride Carbon Dioxide Anion Gap BUN Creatinine Estim Creat Clear Calc Est GFR (MDRD) Af Amer Est GFR (MDRD) Non-Af BUN/Creatinine Ratio Glucose Calcium Ammonia Total Creatine Kinase Triglycerides Whole Bld Vitamin B1 Vitamin B12 TSH 0.80 Fluid Source Fluid Color Fluid Appearance Fluid WBC Fluid RBC Fluid Tot Cell Count Fluid Neutrophils Fluid Lymphocytes Fluid Monocytes Fl Pathologist Comment Fluid Comment 2 MRSA (PCR) 10/23/17 10/23/17 10/23/17 10:55 10:55 10:55 WBC RBC Hgb Hct MCV MCH MCHC RDW RDW Differential Plt Count MPV Immature Gran % (Auto) Neut % (Auto) Lymph % (Auto) [place] % (Auto) Eos % (Auto) Baso % (Auto) Absolute Neuts (auto) Absolute Lymphs (auto) Total Counted Differential Comment Diff Path Review APTT Specimen Type Sample Site pH Bicarbonate Actual POC Total CO2 Base Excess O2 Saturation O2 % ABG pCO2 ABG pO2 Jermaine Test Respiration Rate O2 Delivery Device Minute Volume Vent Mode Tidal Volume POC PEEP Blood Gas Notified Whom Blood Gas Notified Time Sodium Potassium Chloride Carbon Dioxide Anion Gap BUN Creatinine Estim Creat Clear Calc Est GFR (MDRD) Af Amer Est GFR (MDRD) Non-Af BUN/Creatinine Ratio Glucose Calcium Ammonia 14.0 Total Creatine Kinase Triglycerides Whole Bld Vitamin B1 Pending Vitamin B12 352 TSH Fluid Source Fluid Color Fluid Appearance Fluid WBC Fluid RBC Fluid Tot Cell Count Fluid Neutrophils Fluid Lymphocytes Fluid Monocytes Fl Pathologist Comment Fluid Comment 2 MRSA (PCR) 10/23/17 10/24/17 10/24/17 10:55 06:58 06:58 WBC 17.3 H RBC 4.99 Hgb 16.5 Hct 47.3 MCV 94.8 H MCH 33.1 H MCHC 34.9 RDW 13.4 RDW Differential 45.0 H Plt Count 253 MPV 9.0 Immature Gran % (Auto) 0.400 Neut % (Auto) 86.7 H Lymph % (Auto) 3.5 L [place] % (Auto) 9.2 Eos % (Auto) 0.1 Baso % (Auto) 0.1 Absolute Neuts (auto) 15.0 H Absolute Lymphs (auto) 0.60 L Total Counted Not Reportable Differential Comment COMMENT Diff Path Review May foll APTT Specimen Type Sample Site pH Bicarbonate Actual POC Total CO2 Base Excess O2 Saturation O2 % ABG pCO2 ABG pO2 Jermaine Test Respiration Rate O2 Delivery Device Minute Volume Vent Mode Tidal Volume POC PEEP Blood Gas Notified Whom Blood Gas Notified Time Sodium 138 Potassium 3.8 Chloride 101 Carbon Dioxide 29.0 Anion Gap 8 BUN 13 Creatinine 0.74 Estim Creat Clear Calc 71.02 Est GFR (MDRD) Af Amer 133 Est GFR (MDRD) Non-Af 110 BUN/Creatinine Ratio 17.7 Glucose 132 H Calcium 8.3 L Ammonia Total Creatine Kinase 267 Triglycerides 94 Whole Bld Vitamin B1 Vitamin B12 TSH Fluid Source Fluid Color Fluid Appearance Fluid WBC Fluid RBC Fluid Tot Cell Count Fluid Neutrophils Fluid Lymphocytes Fluid Monocytes Fl Pathologist Comment Fluid Comment 2 MRSA (PCR) 10/24/17 10/24/17 10/24/17 09:16 11:00 11:00 WBC RBC Hgb Hct MCV MCH MCHC RDW RDW Differential Plt Count MPV Immature Gran % (Auto) Neut % (Auto) Lymph % (Auto) [place] % (Auto) Eos % (Auto) Baso % (Auto) Absolute Neuts (auto) Absolute Lymphs (auto) Total Counted Differential Comment Diff Path Review APTT 31.8 Specimen Type ART Sample Site R Radial pH 7.25 L Bicarbonate Actual 29.3 H POC Total CO2 31 Base Excess 2 O2 Saturation 90 L O2 % 100 ABG pCO2 66.7 H ABG pO2 69 L Jermaine Test POS Respiration Rate O2 Delivery Device Ambu Minute Volume Vent Mode Tidal Volume POC PEEP Blood Gas Notified Whom ICU MD Blood Gas Notified Time 916 Sodium Potassium Chloride Carbon Dioxide Anion Gap BUN Creatinine Estim Creat Clear Calc Est GFR (MDRD) Af Amer Est GFR (MDRD) Non-Af BUN/Creatinine Ratio Glucose Calcium Ammonia Total Creatine Kinase Triglycerides Whole Bld Vitamin B1 Vitamin B12 TSH Fluid Source Fluid Color Fluid Appearance Fluid WBC Fluid RBC Fluid Tot Cell Count Fluid Neutrophils Fluid Lymphocytes Fluid Monocytes Fl Pathologist Comment Fluid Comment 2 MRSA (PCR) Negative 10/24/17 10/24/17 10/24/17 11:27 18:00 Unknown WBC RBC Hgb Hct MCV MCH MCHC RDW RDW Differential Plt Count MPV Immature Gran % (Auto) Neut % (Auto) Lymph % (Auto) [place] % (Auto) Eos % (Auto) Baso % (Auto) Absolute Neuts (auto) Absolute Lymphs (auto) Total Counted Differential Comment Diff Path Review APTT > 250.0 H* Specimen Type ART Sample Site R Brachial pH 7.29 L Bicarbonate Actual 29.4 H POC Total CO2 31 Base Excess 3 H O2 Saturation 96 O2 % 100 ABG pCO2 60.7 H ABG pO2 93 Jermaine Test POS Respiration Rate 12 O2 Delivery Device Vent Minute Volume 6.00 Vent Mode A-C Tidal Volume 450 POC PEEP 10 Blood Gas Notified Whom ICU MD Blood Gas Notified Time 1120 Sodium Potassium Chloride Carbon Dioxide Anion Gap BUN Creatinine Estim Creat Clear Calc Est GFR (MDRD) Af Amer Est GFR (MDRD) Non-Af BUN/Creatinine Ratio Glucose Calcium Ammonia Total Creatine Kinase Triglycerides Whole Bld Vitamin B1 Vitamin B12 TSH Fluid Source BRONCHIAL LAVAGE Fluid Color LT YEL Fluid Appearance TURBID Fluid WBC 153282.000 Fluid RBC 4444.46599 Fluid Tot Cell Count TNP Fluid Neutrophils 96 Fluid Lymphocytes 2 Fluid Monocytes 2 Fl Pathologist Comment May follow Fluid Comment 2 Not Reportable MRSA (PCR) 10/25/17 01:02 WBC RBC Hgb Hct MCV MCH MCHC RDW RDW Differential Plt Count MPV Immature Gran % (Auto) Neut % (Auto) Lymph % (Auto) [place] % (Auto) Eos % (Auto) Baso % (Auto) Absolute Neuts (auto) Absolute Lymphs (auto) Total Counted Differential Comment Diff Path Review APTT 87.2 H Specimen Type Sample Site pH Bicarbonate Actual POC Total CO2 Base Excess O2 Saturation O2 % ABG pCO2 ABG pO2 Jermaine Test Respiration Rate O2 Delivery Device Minute Volume Vent Mode Tidal Volume POC PEEP Blood Gas Notified Whom Blood Gas Notified Time Sodium Potassium Chloride Carbon Dioxide Anion Gap BUN Creatinine Estim Creat Clear Calc Est GFR (MDRD) Af Amer Est GFR (MDRD) Non-Af BUN/Creatinine Ratio Glucose Calcium Ammonia Total Creatine Kinase Triglycerides Whole Bld Vitamin B1 Vitamin B12 TSH Fluid Source Fluid Color Fluid Appearance Fluid WBC Fluid RBC Fluid Tot Cell Count Fluid Neutrophils Fluid Lymphocytes Fluid Monocytes Fl Pathologist Comment Fluid Comment 2 MRSA (PCR) Microbiology 10/24/17 10:30 Blood Culture (Wb) - Anticubital Right Blood Culture - Preliminary 10/24/17 11:25 Sputum, Induced/Lukens Gram Stain - Final 10/24/17 11:20 Urine Catheter - Ernst Streptococcus pneumoniae Antigen (M - Final 10/24/17 11:20 Urine Catheter - Ernst Legionella Antigen - Final Clinical Impression(s) from Imaging Studies Brain CT 10/22/17 07:53 IMPRESSION: Chronic involutional changes of the brain. Electronically Signed: Tom Garcia MD at 8:42 EDT Tel [phone], Service support , Chest X-Ray 10/22/17 08:20 IMPRESSION: Cardiomegaly. Mild increased markings at the lung bases suggestive of linear atelectasis and/or scarring. Electronically Signed: Tom Garcia MD at 8:43 EDT Tel [phone], Service support , Neck CTA 10/22/17 14:41 IMPRESSION: Less than 50% stenosis proximal internal carotid arteries bilaterally due to mixed plaque. Occlusion or near occlusion proximal vertebral artery on the right. Moderate focal stenosis at the origin of the left vertebral artery. Electronically Signed: Bhavin Jonas MD at 16:12 EDT , Service support , Brain CT 10/23/17 05:55 IMPRESSION: Generalized brain atrophy. No acute findings in the brain Electronically Signed: Vaibhav Jaimes, at 6:08 EDT Tel , Service support , Brain MRI 10/23/17 07:17 IMPRESSION: 1. Involutional changes of the brain, as described above. 2. No MR evidence for acute infarct. N.B. : The above information has been verbally conveyed by Aimee Osei MD to Mateo Mckeon, on 10/23/2017 08:24:08 (ET). Electronically Signed: Aimee Osei MD at 8:22 EDT , Service support , Head MRA 10/23/17 08:12 IMPRESSION: 1. Nonvisualization of the right intradural vertebral artery suggesting possible thrombosis. 2. 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 3. No MRA evidence for aneurysm. N.B. : The above information has been verbally conveyed by Aimee Osei MD to Mateo LAWSON, on 10/23/2017 10:08:03 (ET). Electronically Signed: Aimee Osei MD at 9:55 EDT , Service support , Neck MRA 10/23/17 08:12 IMPRESSION: 1. 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 2. Nonhemodynamically significant stenoses of the left vertebral artery, common carotid and internal carotid arteries. N.B. : The above information has been verbally conveyed by Aimee Osei MD to Mateo Manzo, on 10/23/2017 10:07:17 (ET). Electronically Signed: Aimee Osei MD at 10:01 EDT , Service support , Chest X-Ray 10/23/17 09:39 IMPRESSION: The tip of the endotracheal tube is at 5.5 cm proximal to the bertha. The tip of the orogastric tube is in the body of the stomach. Bibasilar atelectasis and/or infiltrate slightly worse on the right lung base. Electronically Signed: Tom Garcia MD at 11:12 EDT Tel [phone], Service support , Chest X-Ray 10/24/17 09:04 IMPRESSION: Right lower lobe fine loss with small right pleural effusion. Endobronchial mucous plug should be ruled out. Electronically Signed: Tom Garcia MD at 11:00 EDT Tel [phone], Service support , Chest CTA 10/24/17 09:15 IMPRESSION: Pulmonary emboli involving the right upper lobe pulmonary arterial branches as well as the interlobar artery. Volume loss in the right hemithorax with airspace disease and/or atelectasis and volume loss in the right lower lobe. Fluid or soft tissue density seen within the right interlobar bronchus. The results were communicated to the attending physician. Electronically Signed: Tom Garcia MD at 10:37 EDT Tel [phone], Service support , Medical Necessity - Tobacco Use Smoking Status: Former smoker Assessment/Plan All Active Problems CVA (cerebral vascular accident) (Acute) Unresponsive episode (Acute) RECOMMENDATIONS: 1. Obtain repeat arterial blood gas this morning. 2. Collect CBC with differential, BMP, magnesium and phosphorus level. 3. Continue empiric Zosyn and vancomycin, pending infectious workup. 4. Obtain repeat blood cultures. 5. Discontinue supplemental IV fluids and continue tube feeds as ordered. 6. Continue heparin drip, given recently diagnosed PE. 7. Continue nicardipine drip. 8. Continue appropriate ICU prophylaxis IMPRESSIONS: 1. Acute encephalopathy Differential etiologies initially included ischemic CVA, nonconvulsive status epilepticus and reversible posterior leukoencephalopathy syndrome. However, subsequent workup including MRI/MRA head and neck revealed no acute infarction. EEG demonstrated no evidence of epileptiform discharges or seizure activity. Therefore, the most likely etiology for the patient's encephalopathy was secondary to his profound hypertension, coupled with underlying hypercarbia, which likely developed as a consequence of his underlying pulmonary infectious process. His acid-base status has improved with invasive mechanical ventilation. His blood pressure is being actively treated, as is his underlying pulmonary infectious process. Therefore, I anticipate continued improvement in his mentation as his underlying metabolic derangements are corrected. 2. Acute hypercarbic and hypoxemic respiratory failure secondary to pulmonary embolism and right lower lobe airspace disease The patient was emergently intubated on the morning of October 23 for airway protection due to #1. The patient failed his attempted extubation on the morning of October 24. An arterial blood gas obtained shortly after intubation revealed hypercarbia. In addition, the patient was noted to be increasingly hypoxic upon extubation. Therefore, a stat CTA chest was obtained, which revealed significant right-sided pulmonary embolization along with right lower lobe airspace disease and volume loss. A bedside bronchoscopy was performed which did reveal copious amounts of purulent, tenacious secretions bilaterally. The patient is being maintained on broad-spectrum antibiotics, accordingly. Cultures are pending. 3. Sepsis secondary to severe community-acquired pneumonia and gram-positive bacteremia The patient will be maintained on broad-spectrum antibiotics, pending infectious workup. We will also plan to repeat blood cultures today. 4. Hypertensive urgency The patient does have a baseline history of hypertension, but was reportedly only on a small dose of Norvasc as an outpatient. His blood pressures have been quite labile during his admission with large fluctuations in his systolic parameters. He did require a nicardipine drip, as his systolic pressures upon admission to the ICU were greater than 200 mmHg. We will plan to continue nicardipine drip and initiate oral antihypertensive regimen down his gastric tube. The patient is currently receiving hydrochlorothiazide, with lisinopril and labetalol being added today. 5. Polycythemia This appears to be likely secondary to hemoconcentration, as the patient's hemoglobin concentration improved following volume expansion. 6. Hypokalemia/hypophosphatemia Electrolyte repletion is underway. Recheck levels in the morning. 7. Personal history of alcohol dependence Complicates care, management, recovery and prognosis. The patient reportedly drinks 6 beers daily but is never had significant withdrawal symptoms and/or withdrawal seizures. TIME: 40 minutes of critical care time, independent of procedures, was spent addressing the patient's acute encephalopathy, acute respiratory failure, hypertensive emergency, right lower lobe pneumonia, pulmonary embolism, history of alcohol dependence, review of all data and collaboration with the care team. ([id number]) Code Visit [id number]: [id number] Critical care first hour
--- NOTE | 2017-10-25 07:36 | PN_ITS ---
Subjective: The patient was seen and examined at the bedside this morning. Events from the last 24 hours have been reviewed. The patient is currently afebrile, hemodynamically stable and maintaining appropriate oxygen saturations with an FiO2 requirement of 40%. The patient's nicardipine did have to be restarted this morning due to systolic blood pressures greater than 200 mmHg. The patient failed his spontaneous breathing trial this morning. Objective: The patient's most recent lab work, culture data and imaging studies have all been personally reviewed. Initial head CT dated October 22 was negative, only revealing chronic involutional changes. Neck CTA dated October 22 revealed less than 50% stenosis of the proximal internal carotid arteries bilaterally, near complete occlusion of the proximal vertebral artery on the right and moderate focal stenosis at the origin of the left vertebral artery. Brain MRI dated October 23 revealed involutional changes of the brain without MR evidence of acute infarction. Head/neck MRA completed on October 23 revealed nonvisualization of the right intradural vertebral artery suggesting possible thrombus. There was also note of apparent thrombus of the left superior cerebellar artery. EEG also completed on October 23 revealed a normal awake and drowsy EEG without epileptiform discharges or electrographic seizure activity. Surface echocardiogram revealed normal LV size and function with an ejection fraction of 55% and evidence of stage I diastolic dysfunction. CTA chest dated October 24 revealed extensive right-sided pulmonary emboli along with right sided airspace disease and volume loss. A bedside bronchoscopy was performed on October 24, which did reveal evidence of copious, tenacious secretions bilaterally. Strep and urine Legionella antigens were both negative. Urine culture is currently pending. Bronchial alveolar lavage culture data is pending. General: - - Intubated, sedated and mechanically ventilated. HEENT: Atraumatic, Normocephalic, Sluggish Pupils Oral: No Gingival or Mucosal Lesions/ Ulcerations, - - Endotracheal and OG tubes remain in place. Neck: Supple, No Nodes, Trachea Midline Lungs: No rhonchi, No wheeze, No rales, Diminished Cardiovascular: Regular rate, Regular Rhythm, Normal S1, Normal S2, No murmurs Abdomen: Bowel Sounds Present, Soft, Non Tender Extremities: No clubbing, No cyanosis, No edema Skin: No breakdown Musculoskeletal: No Muscle Wasting Lymphatic: No Cervical, Supraclavicular, or Inguinal Adenopathy Neurological: - - No focal neurological deficits. Attempts to move extremities. Will follow some simple commands. Vital Signs Temp Pulse Resp BP Pulse Ox 98.5 F 82 16 210/103 H 98 10/25/17 04:00 10/25/17 06:35 10/25/17 06:35 10/25/17 06:47 10/25/17 06:35 Oxygen Flow Rate (L/min) 2 Oxygen Delivery Method Mechanical Ventilator Weight: 196 lb 3.382 oz Body Mass Index (BMI) 24.5 Finger Stick Blood Glucose 0 Intake and Output for Last 24 Hours 10/23/17 10/24/17 10/25/17 23:59 23:59 23:59 Intake Total 1865.0 / 1865.0 3104.8 / 3104.8 3342.9 / 3342.9 Output Total 1050 / 1050 1400 / 1400 810 / 810 Balance 815.0 / 815.0 1704.8 / 1704.8 2532.9 / 2532.9 Labs (Last 48 Hours) 10/23/17 10/23/17 10/23/17 05:20 10:51 10:55 WBC RBC Hgb Hct MCV MCH MCHC RDW RDW Differential Plt Count MPV Immature Gran % (Auto) Neut % (Auto) Lymph % (Auto) Spencer % (Auto) Eos % (Auto) Baso % (Auto) Absolute Neuts (auto) Absolute Lymphs (auto) Total Counted Differential Comment Diff Path Review Reviewed APTT Specimen Type ART Sample Site R Radial pH 7.34 L Bicarbonate Actual 25.2 POC Total CO2 27 Base Excess -1 O2 Saturation 97 O2 % 50 ABG pCO2 46.4 H ABG pO2 92 Jermaine Test POS Respiration Rate 12 O2 Delivery Device Vent Minute Volume 10.00 Vent Mode A-C Tidal Volume 450 POC PEEP 5 Blood Gas Notified Whom ICU MD Blood Gas Notified Time 1043 Sodium Potassium Chloride Carbon Dioxide Anion Gap BUN Creatinine Estim Creat Clear Calc Est GFR (MDRD) Af Amer Est GFR (MDRD) Non-Af BUN/Creatinine Ratio Glucose Calcium Ammonia Total Creatine Kinase Triglycerides Whole Bld Vitamin B1 Vitamin B12 TSH 0.80 Fluid Source Fluid Color Fluid Appearance Fluid WBC Fluid RBC Fluid Tot Cell Count Fluid Neutrophils Fluid Lymphocytes Fluid Monocytes Fl Pathologist Comment Fluid Comment 2 MRSA (PCR) 10/23/17 10/23/17 10/23/17 10:55 10:55 10:55 WBC RBC Hgb Hct MCV MCH MCHC RDW RDW Differential Plt Count MPV Immature Gran % (Auto) Neut % (Auto) Lymph % (Auto) Spencer % (Auto) Eos % (Auto) Baso % (Auto) Absolute Neuts (auto) Absolute Lymphs (auto) Total Counted Differential Comment Diff Path Review APTT Specimen Type Sample Site pH Bicarbonate Actual POC Total CO2 Base Excess O2 Saturation O2 % ABG pCO2 ABG pO2 Jermaine Test Respiration Rate O2 Delivery Device Minute Volume Vent Mode Tidal Volume POC PEEP Blood Gas Notified Whom Blood Gas Notified Time Sodium Potassium Chloride Carbon Dioxide Anion Gap BUN Creatinine Estim Creat Clear Calc Est GFR (MDRD) Af Amer Est GFR (MDRD) Non-Af BUN/Creatinine Ratio Glucose Calcium Ammonia 14.0 Total Creatine Kinase Triglycerides Whole Bld Vitamin B1 Pending Vitamin B12 352 TSH Fluid Source Fluid Color Fluid Appearance Fluid WBC Fluid RBC Fluid Tot Cell Count Fluid Neutrophils Fluid Lymphocytes Fluid Monocytes Fl Pathologist Comment Fluid Comment 2 MRSA (PCR) 10/23/17 10/24/17 10/24/17 10:55 06:58 06:58 WBC 17.3 H RBC 4.99 Hgb 16.5 Hct 47.3 MCV 94.8 H MCH 33.1 H MCHC 34.9 RDW 13.4 RDW Differential 45.0 H Plt Count 253 MPV 9.0 Immature Gran % (Auto) 0.400 Neut % (Auto) 86.7 H Lymph % (Auto) 3.5 L Spencer % (Auto) 9.2 Eos % (Auto) 0.1 Baso % (Auto) 0.1 Absolute Neuts (auto) 15.0 H Absolute Lymphs (auto) 0.60 L Total Counted Not Reportable Differential Comment COMMENT Diff Path Review May foll APTT Specimen Type Sample Site pH Bicarbonate Actual POC Total CO2 Base Excess O2 Saturation O2 % ABG pCO2 ABG pO2 Jermaine Test Respiration Rate O2 Delivery Device Minute Volume Vent Mode Tidal Volume POC PEEP Blood Gas Notified Whom Blood Gas Notified Time Sodium 138 Potassium 3.8 Chloride 101 Carbon Dioxide 29.0 Anion Gap 8 BUN 13 Creatinine 0.74 Estim Creat Clear Calc 71.02 Est GFR (MDRD) Af Amer 133 Est GFR (MDRD) Non-Af 110 BUN/Creatinine Ratio 17.7 Glucose 132 H Calcium 8.3 L Ammonia Total Creatine Kinase 267 Triglycerides 94 Whole Bld Vitamin B1 Vitamin B12 TSH Fluid Source Fluid Color Fluid Appearance Fluid WBC Fluid RBC Fluid Tot Cell Count Fluid Neutrophils Fluid Lymphocytes Fluid Monocytes Fl Pathologist Comment Fluid Comment 2 MRSA (PCR) 10/24/17 10/24/17 10/24/17 09:16 11:00 11:00 WBC RBC Hgb Hct MCV MCH MCHC RDW RDW Differential Plt Count MPV Immature Gran % (Auto) Neut % (Auto) Lymph % (Auto) Spencer % (Auto) Eos % (Auto) Baso % (Auto) Absolute Neuts (auto) Absolute Lymphs (auto) Total Counted Differential Comment Diff Path Review APTT 31.8 Specimen Type ART Sample Site R Radial pH 7.25 L Bicarbonate Actual 29.3 H POC Total CO2 31 Base Excess 2 O2 Saturation 90 L O2 % 100 ABG pCO2 66.7 H ABG pO2 69 L Jermaine Test POS Respiration Rate O2 Delivery Device Ambu Minute Volume Vent Mode Tidal Volume POC PEEP Blood Gas Notified Whom ICU MD Blood Gas Notified Time 916 Sodium Potassium Chloride Carbon Dioxide Anion Gap BUN Creatinine Estim Creat Clear Calc Est GFR (MDRD) Af Amer Est GFR (MDRD) Non-Af BUN/Creatinine Ratio Glucose Calcium Ammonia Total Creatine Kinase Triglycerides Whole Bld Vitamin B1 Vitamin B12 TSH Fluid Source Fluid Color Fluid Appearance Fluid WBC Fluid RBC Fluid Tot Cell Count Fluid Neutrophils Fluid Lymphocytes Fluid Monocytes Fl Pathologist Comment Fluid Comment 2 MRSA (PCR) Negative 10/24/17 10/24/17 10/24/17 11:27 18:00 Unknown WBC RBC Hgb Hct MCV MCH MCHC RDW RDW Differential Plt Count MPV Immature Gran % (Auto) Neut % (Auto) Lymph % (Auto) Spencer % (Auto) Eos % (Auto) Baso % (Auto) Absolute Neuts (auto) Absolute Lymphs (auto) Total Counted Differential Comment Diff Path Review APTT > 250.0 H* Specimen Type ART Sample Site R Brachial pH 7.29 L Bicarbonate Actual 29.4 H POC Total CO2 31 Base Excess 3 H O2 Saturation 96 O2 % 100 ABG pCO2 60.7 H ABG pO2 93 Jermaine Test POS Respiration Rate 12 O2 Delivery Device Vent Minute Volume 6.00 Vent Mode A-C Tidal Volume 450 POC PEEP 10 Blood Gas Notified Whom ICU MD Blood Gas Notified Time 1120 Sodium Potassium Chloride Carbon Dioxide Anion Gap BUN Creatinine Estim Creat Clear Calc Est GFR (MDRD) Af Amer Est GFR (MDRD) Non-Af BUN/Creatinine Ratio Glucose Calcium Ammonia Total Creatine Kinase Triglycerides Whole Bld Vitamin B1 Vitamin B12 TSH Fluid Source BRONCHIAL LAVAGE Fluid Color LT YEL Fluid Appearance TURBID Fluid WBC 982344.000 Fluid RBC 4444.63620 Fluid Tot Cell Count TNP Fluid Neutrophils 96 Fluid Lymphocytes 2 Fluid Monocytes 2 Fl Pathologist Comment May follow Fluid Comment 2 Not Reportable MRSA (PCR) 10/25/17 01:02 WBC RBC Hgb Hct MCV MCH MCHC RDW RDW Differential Plt Count MPV Immature Gran % (Auto) Neut % (Auto) Lymph % (Auto) Spencer % (Auto) Eos % (Auto) Baso % (Auto) Absolute Neuts (auto) Absolute Lymphs (auto) Total Counted Differential Comment Diff Path Review APTT 87.2 H Specimen Type Sample Site pH Bicarbonate Actual POC Total CO2 Base Excess O2 Saturation O2 % ABG pCO2 ABG pO2 Jermaine Test Respiration Rate O2 Delivery Device Minute Volume Vent Mode Tidal Volume POC PEEP Blood Gas Notified Whom Blood Gas Notified Time Sodium Potassium Chloride Carbon Dioxide Anion Gap BUN Creatinine Estim Creat Clear Calc Est GFR (MDRD) Af Amer Est GFR (MDRD) Non-Af BUN/Creatinine Ratio Glucose Calcium Ammonia Total Creatine Kinase Triglycerides Whole Bld Vitamin B1 Vitamin B12 TSH Fluid Source Fluid Color Fluid Appearance Fluid WBC Fluid RBC Fluid Tot Cell Count Fluid Neutrophils Fluid Lymphocytes Fluid Monocytes Fl Pathologist Comment Fluid Comment 2 MRSA (PCR) Microbiology 10/24/17 10:30 Blood Culture (Wb) - Anticubital Right Blood Culture - Preliminary 10/24/17 11:25 Sputum, Induced/Lukens Gram Stain - Final 10/24/17 11:20 Urine Catheter - Ernst Streptococcus pneumoniae Antigen (M - Final 10/24/17 11:20 Urine Catheter - Ernst Legionella Antigen - Final Clinical Impression(s) from Imaging Studies Brain CT 10/22/17 07:53 IMPRESSION: Chronic involutional changes of the brain. Electronically Signed: Tom Garcia MD at 8:42 EDT Tel [phone], Service support , Chest X-Ray 10/22/17 08:20 IMPRESSION: Cardiomegaly. Mild increased markings at the lung bases suggestive of linear atelectasis and/or scarring. Electronically Signed: Tom Garcia MD at 8:43 EDT Tel [phone], Service support , Neck CTA 10/22/17 14:41 IMPRESSION: Less than 50% stenosis proximal internal carotid arteries bilaterally due to mixed plaque. Occlusion or near occlusion proximal vertebral artery on the right. Moderate focal stenosis at the origin of the left vertebral artery. Electronically Signed: Bhavin Jonas MD at 16:12 EDT , Service support , Brain CT 10/23/17 05:55 IMPRESSION: Generalized brain atrophy. No acute findings in the brain Electronically Signed: Vaibhav Jaimes, at 6:08 EDT Tel , Service support , Brain MRI 10/23/17 07:17 IMPRESSION: 1. Involutional changes of the brain, as described above. 2. No MR evidence for acute infarct. N.B. : The above information has been verbally conveyed by Aimee Osei MD to Mateo Mckeon, on 10/23/2017 08:24:08 (ET). Electronically Signed: Aimee Osei MD at 8:22 EDT , Service support , Head MRA 10/23/17 08:12 IMPRESSION: 1. Nonvisualization of the right intradural vertebral artery suggesting possible thrombosis. 2. 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 3. No MRA evidence for aneurysm. N.B. : The above information has been verbally conveyed by Aimee Osei MD to Mateo LAWSON, on 10/23/2017 10:08:03 (ET). Electronically Signed: Aimee Osei MD at 9:55 EDT , Service support , Neck MRA 10/23/17 08:12 IMPRESSION: 1. 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 2. Nonhemodynamically significant stenoses of the left vertebral artery, common carotid and internal carotid arteries. N.B. : The above information has been verbally conveyed by Aimee Osei MD to Mateo Manzo, on 10/23/2017 10:07:17 (ET). Electronically Signed: Aimee Osei MD at 10:01 EDT , Service support , Chest X-Ray 10/23/17 09:39 IMPRESSION: The tip of the endotracheal tube is at 5.5 cm proximal to the bertha. The tip of the orogastric tube is in the body of the stomach. Bibasilar atelectasis and/or infiltrate slightly worse on the right lung base. Electronically Signed: Tom Garcia MD at 11:12 EDT Tel [phone], Service support , Chest X-Ray 10/24/17 09:04 IMPRESSION: Right lower lobe fine loss with small right pleural effusion. Endobronchial mucous plug should be ruled out. Electronically Signed: Tom Garcia MD at 11:00 EDT Tel [phone], Service support , Chest CTA 10/24/17 09:15 IMPRESSION: Pulmonary emboli involving the right upper lobe pulmonary arterial branches as well as the interlobar artery. Volume loss in the right hemithorax with airspace disease and/or atelectasis and volume loss in the right lower lobe. Fluid or soft tissue density seen within the right interlobar bronchus. The results were communicated to the attending physician. Electronically Signed: Tom Garcia MD at 10:37 EDT Tel [phone], Service support , Medical Necessity - Tobacco Use Smoking Status: Former smoker Assessment/Plan All Active Problems CVA (cerebral vascular accident) (Acute) Unresponsive episode (Acute) RECOMMENDATIONS: 1. Obtain repeat arterial blood gas this morning. 2. Collect CBC with differential, BMP, magnesium and phosphorus level. 3. Continue empiric Zosyn and vancomycin, pending infectious workup. 4. Obtain repeat blood cultures. 5. Discontinue supplemental IV fluids and continue tube feeds as ordered. 6. Continue heparin drip, given recently diagnosed PE. 7. Continue nicardipine drip. 8. Continue appropriate ICU prophylaxis IMPRESSIONS: 1. Acute encephalopathy Differential etiologies initially included ischemic CVA, nonconvulsive status epilepticus and reversible posterior leukoencephalopathy syndrome. However, subsequent workup including MRI/MRA head and neck revealed no acute infarction. EEG demonstrated no evidence of epileptiform discharges or seizure activity. Therefore, the most likely etiology for the patient's encephalopathy was secondary to his profound hypertension, coupled with underlying hypercarbia, which likely developed as a consequence of his underlying pulmonary infectious process. His acid-base status has improved with invasive mechanical ventilation. His blood pressure is being actively treated, as is his underlying pulmonary infectious process. Therefore, I anticipate continued improvement in his mentation as his underlying metabolic derangements are corrected. 2. Acute hypercarbic and hypoxemic respiratory failure secondary to pulmonary embolism and right lower lobe airspace disease The patient was emergently intubated on the morning of October 23 for airway protection due to #1. The patient failed his attempted extubation on the morning of October 24. An arterial blood gas obtained shortly after intubation revealed hypercarbia. In addition, the patient was noted to be increasingly hypoxic upon extubation. Therefore, a stat CTA chest was obtained , which revealed significant right-sided pulmonary embolization along with right lower lobe airspace disease and volume loss. A bedside bronchoscopy was performed which did reveal copious amounts of purulent, tenacious secretions bilaterally. The patient is being maintained on broad-spectrum antibiotics, accordingly. Cultures are pending. 3. Sepsis secondary to severe community-acquired pneumonia and gram-positive bacteremia The patient will be maintained on broad-spectrum antibiotics, pending infectious workup. We will also plan to repeat blood cultures today. 4. Hypertensive urgency The patient does have a baseline history of hypertension, but was reportedly only on a small dose of Norvasc as an outpatient. His blood pressures have been quite labile during his admission with large fluctuations in his systolic parameters. He did require a nicardipine drip, as his systolic pressures upon admission to the ICU were greater than 200 mmHg. We will plan to continue nicardipine drip and initiate oral antihypertensive regimen down his gastric tube. The patient is currently receiving hydrochlorothiazide, with lisinopril and labetalol being added today. 5. Polycythemia This appears to be likely secondary to hemoconcentration, as the patient's hemoglobin concentration improved following volume expansion. 6. Hypokalemia/hypophosphatemia Electrolyte repletion is underway. Recheck levels in the morning. 7. Personal history of alcohol dependence Complicates care, management, recovery and prognosis. The patient reportedly drinks 6 beers daily but is never had significant withdrawal symptoms and/or withdrawal seizures. TIME: 40 minutes of critical care time, independent of procedures, was spent addressing the patient's acute encephalopathy, acute respiratory failure, hypertensive emergency, right lower lobe pneumonia, pulmonary embolism, history of alcohol dependence, review of all data and collaboration with the care team. ([id number]) Code Visit [id number]: [id number] Critical care first hour
--- NOTE | 2017-10-25 07:38 | PCM.RX.CS ---
Consult Pharmacy has been consulted to manage selected antiobiotic: Vancomycin Type of Consult: New start Suspected Infection: Pneumonia, Bacteremia Prior Doses of Antibiotics Received/Current Regimen: Medications Discontinued Medications Vancomycin HCl 1,500 mg/ (Sodium Chloride) 530 mls @ 250 mls/hr IV X1 ONE Stop: 10/24/17 13:37 Last Admin: 10/24/17 11:42 Dose: 250 mls/hr Labs: Sodium 138 mmol/L (136-145) 10/24/17 06:58 Potassium 3.8 mmol/L (3.5-5.1) 10/24/17 06:58 Chloride 101 mmol/L (98-107) 10/24/17 06:58 Carbon Dioxide 29.0 mmol/L (21.0-32.0) 10/24/17 06:58 Anion Gap 8 (5-15) 10/24/17 06:58 BUN 13 mg/dL (7-18) 10/24/17 06:58 Creatinine 0.74 mg/dL (0.70-1.30) 10/24/17 06:58 Est GFR (MDRD) Af Amer 133 mL/min (>60) 10/24/17 06:58 Est GFR (MDRD) Non-Af 110 mL/min (>60) 10/24/17 06:58 BUN/Creatinine Ratio 17.7 RATIO (10-20) 10/24/17 06:58 Glucose 132 mg/dL (74-106) H 10/24/17 06:58 Microbiology: Microbiology 10/24/17 10:30 Blood Culture (Wb) - Anticubital Right Blood Culture - Preliminary 10/24/17 11:25 Sputum, Induced/Lukens Gram Stain - Final 10/24/17 11:20 Urine Catheter - Ernst Streptococcus pneumoniae Antigen (M - Final 10/24/17 11:20 Urine Catheter - Ernst Legionella Antigen - Final Estimated Creatinine Clearance: 96 ml/min Goal Trough: 15-20 mcg/mL Pharmacy Plan for Drug Dosing: Recommend vancomycin new start 1750mg IV q12h. Check prior to 4th dose. Pharmacy Service will continue to monitor and adjust dosing as required. Follow-Up Labs: Trough Vancomycin - 10/26/17 @ 2100
[2017-10-25 08:12] LABS: Absolute Lymphocyte Count 0.67 X10^3/ul (0.83-4.51); Absolute Neutrophil Count 12.9 X10^3/uL (2.0-7.7); Basophil# 0.02 X10^3/uL; Basophil% 0.1 % (0-1); Eosinophil# 0.01 X10^3/uL; Eosinophils% 0.1 % (0-5); Hemoglobin 15.5 g/dl (13.0-16.5); Lymphocyte # 0.67 X10^3/ul (4.0); Lymphocyte % 4.6 % (19-41); Mean Corp Hgb Conc 34.4 g/gl (32-36); Mean Corpuscular Hgb 32.2 pg (27.0-32.0); Mean Corpuscular Volume 93.4 fL (80-94); Mean Platelet Vol. 9.5 fl (6.2-12.0); Monocyte# 1.06 X10^3/uL; Monocyte% 7.2 % (0-10); Neutrophil # 12.85 X10^3/uL (2.7-7.7); Neutrophil % 87.4 % (47-70); Platelet Count 183 K/mm3 (150-450); RBC Distribution Width CV 13.1 % (11.6-14.6); RBC Distribution Width SD 43.7 fl (35.1-43.9); Red Blood Count 4.82 M/mm3 (4.6-6.2); White Blood Count 14.7 K/mm3 (4.4-11.0)
[2017-10-25 08:14] LABS: Differential Indicated SCAN CRITERIA MET; POSITIVE COUNT NO; POSITIVE DIFFERENTIAL NO; POSITIVE MORPHOLOGY YES
[2017-10-25 08:24] LABS: Anion Gap 9 (5-15); BUN 17 mg/dL (7-18); Chloride 99 mmol/L (98-107); EST Glomerular Filtration Rate 88 mL/min (>60); Est Glom Filt Rate - Afr Amer 106 mL/min (>60); Estimated Creatinine Clearance 78.91 ml/min; Glucose 133 mg/dL (74-106); Magnesium 2.1 mg/dL (1.6-2.6); Phosphorus 1.9 mg/dL (2.5-4.9); Potassium 3.4 mmol/L (3.5-5.1); Sodium Level 134 mmol/L (136-145)
[2017-10-25 08:50] LABS: Partial Thromboplast Time 58.5 Seconds (24.1-36.2)
[2017-10-25] MEDS: Famotidine 20 MG Tablet GT ×2 (08:56→21:06)
[2017-10-25] MEDS: Aspirin 81 MG TAB.CHEW GT (08:56)
[2017-10-25] MEDS: Senna/Docusate Sodium 1 Tablet 2 TABLET GT ×2 (08:56→21:06)
[2017-10-25] MEDS: Thiamine Hydrochloride 100 MG Tablet 200 MG GT (08:56)
[2017-10-25] MEDS: Lisinopril 40 MG Tablet GT (08:56)
[2017-10-25] MEDS: Labetalol 200 MG Tablet GT ×2 (08:56→21:06)
[2017-10-25] MEDS: hydroCHLOROthiazide 25 MG Tablet GT (08:56)
[2017-10-25] MEDS: Folic Acid 1 MG Tablet GT (08:56)
[2017-10-25] MEDS: Polyethylene Glycol 3350 17 GM PACKET GT ×2 (09:02→21:06)
--- NOTE | 2017-10-25 09:37 | CASEMGMT ---
Pt remains on a vent at this time. SW spoke w/Claudia in rehab, will follow up next week w/Claudia in regard to rehab referral. MADDIE Samson, [employer]
[2017-10-25] MEDS: 0.9% NaCl Peripheral Flush Adult/Peds IV (10:03)
[2017-10-25] MEDS: Chlorhexidine 15 ML PO ×2 (10:04→21:17)
[2017-10-25 10:15] LABS: Pathologist Review Reviewed
[2017-10-25 10:26] LABS: Red Cell Count/Body Fluid 4444 /mm3
--- NOTE | 2017-10-25 11:15 | NURSING ---
Hypoxia at 0930 Pt positioned on right side. O2Sat 88-89%. ETT suctioned large thing red/brown secretions x2 and FiO2 increased to 100%. No change in oxygen saturation. [place] used to ventilate patient for 1 minute with no change in oxygenation o2Sat 86%. Pt the repositioned to back. O2Sat increased to 91%. RT Jacqueline called to pt bedside. O2Sat decreased to 88-89% within 5 minutes again. Peep increased to 10 to maintain O2Sat > 94%. Will continue to monitor.
[2017-10-25 14:46] LABS: Partial Thromboplast Time 76.1 Seconds (24.1-36.2)
[2017-10-25 14:57] LABS: Pathologist Comment/Body Fluid Reviewed
[2017-10-25] MEDS: HEPARIN/D5w 25,000 UNITS 25,000 UNITS/250 ML IV.SOLN. 12 UNITS IV (15:20)
[2017-10-25] MEDS: Vital AF 1.2 Cal Liquid 1,000 ML 70 ML GT (15:26)
--- NOTE | 2017-10-25 16:48 | PCM.PN.HOSP ---
Patient Problems: Active and Suspected Problems CVA (cerebral vascular accident) (Acute) Unresponsive episode (Acute) Objective: f/u for hypoxic respiratory failure and encephalopathy Patient seen and examined Family in the room visiting and updated on patient's condition Vitals/I&O's: Vital Signs Temp Pulse Resp BP Pulse Ox 99.2 F H 74 16 139/72 H 98 10/25/17 12:00 10/25/17 14:00 10/25/17 14:00 10/25/17 14:00 10/25/17 14:00 Oxygen Flow Rate (L/min) 2 Oxygen Delivery Method Mechanical Ventilator Weight: 89 kg Body Mass Index (BMI) 24.5 Finger Stick Blood Glucose 0 Intake and Output for Last 24 Hours 10/23/17 10/24/17 10/25/17 23:59 23:59 23:59 Intake Total 1865.0 / 1865.0 3104.8 / 3104.8 5622.9 / 5622.9 Output Total 1050 / 1050 1400 / 1400 1435 / 1435 Balance 815.0 / 815.0 1704.8 / 1704.8 4187.9 / 4187.9 General: - - sedated, opens eyes slightly intermittently and to verbal stimuli HEENT: Atraumatic Oral: - - ET tube and OG tube in place Neck: Supple Lungs: - - improved BS and air entry in the right hemithorax Cardiovascular: Regular rate, Regular Rhythm Abdomen: Soft, Non Tender, Non-Distended Extremities: No edema Skin: No rashes Neurological: - - sedated Microbiology Past 72 Hours 10/24/17 Unknown Bronchial Lavage - Left Middle Lobe Gram Stain - Final 10/24/17 Unknown Bronchial Lavage - Left Middle Lobe Respiratory Culture - Preliminary Alpha Hemolytic Streptococcus 10/24/17 Unknown Bronchial Lavage - Right Middle Lobe Gram Stain - Final 10/24/17 Unknown Bronchial Lavage - Right Middle Lobe Respiratory Culture - Preliminary Alpha Hemolytic Streptococcus 10/24/17 11:25 Sputum, Induced/Lukens Gram Stain - Final 10/24/17 11:25 Sputum, Induced/Lukens Respiratory Culture - Preliminary Appears to be normal respiratory nelson. Further studies to follow. 10/24/17 10:30 Blood Culture (Wb) - Anticubital Right Bacteria Detection (PCR) - Final Coag Negative Staph 10/24/17 10:30 Blood Culture (Wb) - Anticubital Right Blood Culture - Preliminary 10/24/17 11:20 Urine Catheter - Ernst Streptococcus pneumoniae Antigen (M - Final 10/24/17 11:20 Urine Catheter - Ernst Legionella Antigen - Final Laboratory Results 10/24/17 06:58: Diff Path Review Reviewed 10/24/17 18:00: APTT > 250.0 H* 10/24/17 : Fluid Source BRONCHIAL LAVAGE, Fluid Color LT YEL, Fluid Appearance TURBID, Fluid WBC [id number], Fluid RBC 4444, Fluid Tot Cell Count TNP, Fluid Neutrophils 96, Fluid Lymphocytes 2, Fluid Monocytes 2, Fl Pathologist Comment Reviewed, Fluid Comment 2 Not Reportable 10/25/17 01:02: APTT 87.2 H 10/25/17 07:45: APTT 58.5 H 10/25/17 07:45: WBC 14.7 H, RBC 4.82, Hgb 15.5, Hct 45.0, MCV 93.4, MCH 32.2 H, MCHC 34.4, RDW 13.1, RDW Differential 43.7, Plt Count 183, MPV 9.5, Immature Gran % (Auto) 0.600, Neut % (Auto) 87.4 H, Lymph % (Auto) 4.6 L, Sullivan % (Auto) 7.2, Eos % (Auto) 0.1, Baso % (Auto) 0.1, Absolute Neuts (auto) 12.9 H, Absolute Lymphs (auto) 0.67 L, Total Counted Not Reportable 10/25/17 07:45: Sodium 134 L, Potassium 3.4 L, Chloride 99, Carbon Dioxide 26.0, Anion Gap 9, BUN 17, Creatinine 0.90, Estim Creat Clear Calc 78.91, Est GFR (MDRD) Af Amer 106, Est GFR (MDRD) Non-Af 88, BUN/Creatinine Ratio 19.0, Glucose 133 H, Calcium 8.0 L, Phosphorus 1.9 L, Magnesium 2.1 10/25/17 14:25: APTT 76.1 H Current Medications Aspirin (Aspirin, Baby) 81 mg GT DAILY [facility] Last Admin: 10/25/17 08:56 Dose: 81 mg Atorvastatin Calcium (Lipitor) 40 mg GT QHS [facility] Last Admin: 10/24/17 22:24 Dose: 40 mg Chlorhexidine Gluconate () 15 ml PO BID [facility] Last Admin: 10/25/17 10:04 Dose: 15 ml Chlorhexidine Gluconate () 1 each TOPICAL DAILY [facility] Last Admin: 10/25/17 05:23 Dose: 1 each Famotidine (Pepcid) 20 mg GT BID [facility] Last Admin: 10/25/17 08:56 Dose: 20 mg Folic Acid (Folic Acid) 1 mg GT DAILY [facility] Last Admin: 10/25/17 08:56 Dose: 1 mg Heparin Sodium (Porcine) (Heparin Na) 0 unit IV UD PRN PRN Reason: Protocol Hydrochlorothiazide (Hctz) 25 mg GT DAILY [facility] Last Admin: 10/25/17 08:56 Dose: 25 mg Nicardipine HCl 25 mg/ Sodium (Chloride) 250 mls @ 50 mls/hr IV .Q5H [facility]; 5 MG/HR PRN Reason: Protocol Last Admin: 10/25/17 12:26 Dose: Not Given Dextrose/Sodium Chloride () 1,000 mls @ 125 mls/hr IV .Q8H [facility] Last Admin: 10/25/17 03:50 Dose: 125 mls/hr Propofol (Diprivan) 1,000 mg in 100 mls @ 2.535 mls/hr CONT INF .Q12H [facility]; 5 MCG/KG/MIN PRN Reason: Protocol Last Admin: 10/25/17 05:21 Dose: 2.535 mls/hr Fentanyl () 100 mls @ 5 mls/hr IV .Q20H [facility] Last Admin: 10/24/17 09:25 Dose: 5 mls/hr Enteral Nutritional Formula (Vital Af 1.2 Maico Liquid) 1,000 mls @ 70 mls/hr GT .[id number] [facility] Last Admin: 10/25/17 15:26 Dose: 70 mls/hr Piperacillin Sod/Tazobactam Sod (Zosyn) 3.375 gm in 50 mls @ 12.5 mls/hr IV Q8 [facility] Last Admin: 10/25/17 15:25 Dose: 12.5 mls/hr Heparin Sodium/Dextrose () 25,000 units in 250 mls @ 12 mls/hr IV .[id number] [facility]; As Directed PRN Reason: Protocol Last Admin: 10/25/17 15:20 Dose: 12 mls/hr Vancomycin HCl 1,750 mg/ (Sodium Chloride) 535 mls @ 250 mls/hr IV Q12H [facility] Last Admin: 10/25/17 08:52 Dose: 250 mls/hr Labetalol HCl (Trandate) 10 mg IV Q10M PRN PRN PRN Reason: Hypertensive Emergency Labetalol HCl (Trandate) 200 mg GT BID [facility] Last Admin: 10/25/17 08:56 Dose: 200 mg Lisinopril (Zestril) 40 mg GT DAILY [facility] Last Admin: 10/25/17 08:56 Dose: 40 mg Polyethylene Glycol (Miralax) 17 gm GT BID [facility] Last Admin: 10/25/17 09:02 Dose: 17 gm Senna/Docusate Sodium (Senokot-S, Krista-Colace) 2 tablet GT BID [facility] Last Admin: 10/25/17 08:56 Dose: 2 tablet Sodium Chloride () 5 - 30 ml IV UD PRN PRN Reason: SALINE FLUSH Last Admin: 10/25/17 10:03 Dose: 10 ml Thiamine HCl (Vitamin B1) 200 mg GT DAILY [facility] Last Admin: 10/25/17 08:56 Dose: 200 mg Medical Necessity - Tobacco Use Smoking Status: Former smoker Assessment/Plan All Active Problems CVA (cerebral vascular accident) (Acute) Unresponsive episode (Acute) 1. Acute encephalopathy. Appears to be secondary to hypertensive encephalopathy given markedly elevated BP currently and on presentation. PRESS had been considered as a differential as well initially but ruled out essentially. This appears to be improved 2. Acute hypoxic respiratory failure. Secondary to right lung atelectasis from severe mucus plugging and perhaps from PE as well. Patient underwent bronchoscopy and this was the finding. BAL done and airways cleared. Has been started on IV antibiotics and secretions were very mucopurulent. Appreciate input from pulmonology/critical care immensely 3. Right lung pulmonary embolism. Noted and reported on chest CT-PA. No clinical findings to suggest DVT in periphery. Patient has been started on HBW. Will consider transitioning to one of the NOAC/DOAC 4. TIA. patient had transient weakness of extremity and slurring of speech with some dysphasia. Likely this was a manifestation of hypertensive encephalopathy. Neurology on consult and is following. 5. Hypertensive emergency. Controlled initially with nicardipine drip and now on HCTZ. BP still in the 190s-200s this am and so lisinopril and labetalol started. WIll continue to monitor 6. Alcohol abuse. Will continue to monitor for etoh withdrawal. IV thiamine for now Code Visit Inpatient E&M: [id number] Subs Hosp L2
--- NOTE | 2017-10-25 16:53 | PN_ITS ---
Patient Problems: Active and Suspected Problems CVA (cerebral vascular accident) (Acute) Unresponsive episode (Acute) Objective: f/u for hypoxic respiratory failure and encephalopathy Patient seen and examined Family in the room visiting and updated on patient's condition Vitals/I&O's: Vital Signs Temp Pulse Resp BP Pulse Ox 99.2 F H 74 16 139/72 H 98 10/25/17 12:00 10/25/17 14:00 10/25/17 14:00 10/25/17 14:00 10/25/17 14:00 Oxygen Flow Rate (L/min) 2 Oxygen Delivery Method Mechanical Ventilator Weight: 89 kg Body Mass Index (BMI) 24.5 Finger Stick Blood Glucose 0 Intake and Output for Last 24 Hours 10/23/17 10/24/17 10/25/17 23:59 23:59 23:59 Intake Total 1865.0 / 1865.0 3104.8 / 3104.8 5622.9 / 5622.9 Output Total 1050 / 1050 1400 / 1400 1435 / 1435 Balance 815.0 / 815.0 1704.8 / 1704.8 4187.9 / 4187.9 General: - - sedated, opens eyes slightly intermittently and to verbal stimuli HEENT: Atraumatic Oral: - - ET tube and OG tube in place Neck: Supple Lungs: - - improved BS and air entry in the right hemithorax Cardiovascular: Regular rate, Regular Rhythm Abdomen: Soft, Non Tender, Non-Distended Extremities: No edema Skin: No rashes Neurological: - - sedated Microbiology Past 72 Hours 10/24/17 Unknown Bronchial Lavage - Left Middle Lobe Gram Stain - Final 10/24/17 Unknown Bronchial Lavage - Left Middle Lobe Respiratory Culture - Preliminary Alpha Hemolytic Streptococcus 10/24/17 Unknown Bronchial Lavage - Right Middle Lobe Gram Stain - Final 10/24/17 Unknown Bronchial Lavage - Right Middle Lobe Respiratory Culture - Preliminary Alpha Hemolytic Streptococcus 10/24/17 11:25 Sputum, Induced/Lukens Gram Stain - Final 10/24/17 11:25 Sputum, Induced/Lukens Respiratory Culture - Preliminary Appears to be normal respiratory nelson. Further studies to follow. 10/24/17 10:30 Blood Culture (Wb) - Anticubital Right Bacteria Detection ( PCR) - Final Coag Negative Staph 10/24/17 10:30 Blood Culture (Wb) - Anticubital Right Blood Culture - Preliminary 10/24/17 11:20 Urine Catheter - Ernst Streptococcus pneumoniae Antigen (M - Final 10/24/17 11:20 Urine Catheter - Ernst Legionella Antigen - Final Laboratory Results 10/24/17 06:58: Diff Path Review Reviewed 10/24/17 18:00: APTT > 250.0 H* 10/24/17 : Fluid Source BRONCHIAL LAVAGE, Fluid Color LT YEL, Fluid Appearance TURBID, Fluid WBC [id number], Fluid RBC 4444, Fluid Tot Cell Count TNP, Fluid Neutrophils 96, Fluid Lymphocytes 2, Fluid Monocytes 2, Fl Pathologist Comment Reviewed, Fluid Comment 2 Not Reportable 10/25/17 01:02: APTT 87.2 H 10/25/17 07:45: APTT 58.5 H 10/25/17 07:45: WBC 14.7 H, RBC 4.82, Hgb 15.5, Hct 45.0, MCV 93.4, MCH 32.2 H, MCHC 34.4, RDW 13.1, RDW Differential 43.7, Plt Count 183, MPV 9.5, Immature Gran % (Auto) 0.600, Neut % (Auto) 87.4 H, Lymph % (Auto) 4.6 L, Ripley % (Auto) 7.2, Eos % (Auto) 0.1, Baso % (Auto) 0.1, Absolute Neuts (auto) 12.9 H, Absolute Lymphs (auto) 0.67 L, Total Counted Not Reportable 10/25/17 07:45: Sodium 134 L, Potassium 3.4 L, Chloride 99, Carbon Dioxide 26.0 , Anion Gap 9, BUN 17, Creatinine 0.90, Estim Creat Clear Calc 78.91, Est GFR ( MDRD) Af Amer 106, Est GFR (MDRD) Non-Af 88, BUN/Creatinine Ratio 19.0, Glucose 133 H, Calcium 8.0 L, Phosphorus 1.9 L, Magnesium 2.1 10/25/17 14:25: APTT 76.1 H Current Medications Aspirin (Aspirin, Baby) 81 mg GT DAILY [facility] Last Admin: 10/25/17 08:56 Dose: 81 mg Atorvastatin Calcium (Lipitor) 40 mg GT QHS [facility] Last Admin: 10/24/17 22:24 Dose: 40 mg Chlorhexidine Gluconate () 15 ml PO BID [facility] Last Admin: 10/25/17 10:04 Dose: 15 ml Chlorhexidine Gluconate () 1 each TOPICAL DAILY [facility] Last Admin: 10/25/17 05:23 Dose: 1 each Famotidine (Pepcid) 20 mg GT BID [facility] Last Admin: 10/25/17 08:56 Dose: 20 mg Folic Acid (Folic Acid) 1 mg GT DAILY [facility] Last Admin: 10/25/17 08:56 Dose: 1 mg Heparin Sodium (Porcine) (Heparin Na) 0 unit IV UD PRN PRN Reason: Protocol Hydrochlorothiazide (Hctz) 25 mg GT DAILY [facility] Last Admin: 10/25/17 08:56 Dose: 25 mg Nicardipine HCl 25 mg/ Sodium (Chloride) 250 mls @ 50 mls/hr IV .Q5H [facility]; 5 MG/ HR PRN Reason: Protocol Last Admin: 10/25/17 12:26 Dose: Not Given Dextrose/Sodium Chloride () 1,000 mls @ 125 mls/hr IV .Q8H [facility] Last Admin: 10/25/17 03:50 Dose: 125 mls/hr Propofol (Diprivan) 1,000 mg in 100 mls @ 2.535 mls/hr CONT INF .Q12H [facility]; 5 MCG/KG/MIN PRN Reason: Protocol Last Admin: 10/25/17 05:21 Dose: 2.535 mls/hr Fentanyl () 100 mls @ 5 mls/hr IV .Q20H [facility] Last Admin: 10/24/17 09:25 Dose: 5 mls/hr Enteral Nutritional Formula (Vital Af 1.2 Maico Liquid) 1,000 mls @ 70 mls/hr GT .[id number] [facility] Last Admin: 10/25/17 15:26 Dose: 70 mls/hr Piperacillin Sod/Tazobactam Sod (Zosyn) 3.375 gm in 50 mls @ 12.5 mls/hr IV Q8 [facility] Last Admin: 10/25/17 15:25 Dose: 12.5 mls/hr Heparin Sodium/Dextrose () 25,000 units in 250 mls @ 12 mls/hr IV .[id number] [facility] ; As Directed PRN Reason: Protocol Last Admin: 10/25/17 15:20 Dose: 12 mls/hr Vancomycin HCl 1,750 mg/ (Sodium Chloride) 535 mls @ 250 mls/hr IV Q12H [facility] Last Admin: 10/25/17 08:52 Dose: 250 mls/hr Labetalol HCl (Trandate) 10 mg IV Q10M PRN PRN PRN Reason: Hypertensive Emergency Labetalol HCl (Trandate) 200 mg GT BID [facility] Last Admin: 10/25/17 08:56 Dose: 200 mg Lisinopril (Zestril) 40 mg GT DAILY [facility] Last Admin: 10/25/17 08:56 Dose: 40 mg Polyethylene Glycol (Miralax) 17 gm GT BID [facility] Last Admin: 10/25/17 09:02 Dose: 17 gm Senna/Docusate Sodium (Senokot-S, Krista-Colace) 2 tablet GT BID [facility] Last Admin: 10/25/17 08:56 Dose: 2 tablet Sodium Chloride () 5 - 30 ml IV UD PRN PRN Reason: SALINE FLUSH Last Admin: 10/25/17 10:03 Dose: 10 ml Thiamine HCl (Vitamin B1) 200 mg GT DAILY [facility] Last Admin: 10/25/17 08:56 Dose: 200 mg Medical Necessity - Tobacco Use Smoking Status: Former smoker Assessment/Plan All Active Problems CVA (cerebral vascular accident) (Acute) Unresponsive episode (Acute) 1. Acute encephalopathy. Appears to be secondary to hypertensive encephalopathy given markedly elevated BP currently and on presentation. PRESS had been considered as a differential as well initially but ruled out essentially. This appears to be improved 2. Acute hypoxic respiratory failure. Secondary to right lung atelectasis from severe mucus plugging and perhaps from PE as well. Patient underwent bronchoscopy and this was the finding. BAL done and airways cleared. Has been started on IV antibiotics and secretions were very mucopurulent. Appreciate input from pulmonology/critical care immensely 3. Right lung pulmonary embolism. Noted and reported on chest CT-PA. No clinical findings to suggest DVT in periphery. Patient has been started on HBW. Will consider transitioning to one of the NOAC/DOAC 4. TIA. patient had transient weakness of extremity and slurring of speech with some dysphasia. Likely this was a manifestation of hypertensive encephalopathy. Neurology on consult and is following. 5. Hypertensive emergency. Controlled initially with nicardipine drip and now on HCTZ. BP still in the 190s-200s this am and so lisinopril and labetalol started. WIll continue to monitor 6. Alcohol abuse. Will continue to monitor for etoh withdrawal. IV thiamine for now Code Visit Inpatient E&M: [id number] Subs Hosp L2
[2017-10-25 18:11] LABS: Allen Test POS; Base Excess 2 mmol/L (-2 to +2); Bicarbonate 26.9 mmol/L (22-26); Blood Gas Specimen Type ART; FI02 40; Mode A-C; O2 Delivery Device Vent; PEEP 8; PO2 75 mmHG (75-100); RR 16; SITE R Radial; SO2 95 % (95-99); Time Given 816; Total Carbon Dioxide 28 mmol/L; Vt 500; pCO2 43.4 mmHg (35-45)
[2017-10-25] MEDS: Atorvastatin Calcium 40 MG Tablet GT (21:06)
[2017-10-26] VITALS (34 sets, daily range): BP systolic 114–199; BP diastolic 59–104; PULSE 61–83; RESP 10–18; TEMP 36.4–37.2; O2SAT 93–99
[2017-10-26 00:16] LABS: Bedside Glucose 126 mg/dL (70-110)
[2017-10-26] MEDS: CHLORHEXIDINE GLUC 2% CLOTH 1 EACH TOWELETTE TOPICAL (04:26)
[2017-10-26 05:09] LABS: Partial Thromboplast Time 38.3 Seconds (24.1-36.2)
[2017-10-26] MEDS: Piperacil/Tazobactam 3.375 GM/50 ML ML IV ×2 (05:35→14:26)
[2017-10-26] MEDS: Heparin Injection (Vial) 5,000 UNIT/ML VIAL IV (05:35)
[2017-10-26] MEDS: Dext 5%-0.45% NS 1,000 ML 125 ML IV ×2 (05:36→14:24)
[2017-10-26 05:51] LABS: Bedside Glucose 189 mg/dL (70-110)
--- NOTE | 2017-10-26 06:40 | CT_ITS ---
STUDY: CT BRAIN WITHOUT CONTRAST REASON FOR EXAM: Male, 77 years old. Mental status change, became unresponsive, patient is intubated. Hypertensive urgency. RADIATION DOSAGE (If Supplied By Facility): CTDIvol = ( 44.99 ) mGy, DLP = ( 846.73 ) mGycm TECHNIQUE: Transaxial CT imaging of the brain was performed without administration of intravenous contrast material. Individualized dose optimization techniques were used for this CT. COMPARISON: CT brain: 10/23/2017 FINDINGS: Patient is intubated. Normal calvarium. There is mild/moderate cerebral atrophy with widening of the extra-axial spaces and ventricular dilatation. There are areas of decreased attenuation within the white matter tracts of the supratentorial brain, consistent with mild microvascular disease changes. There is no acute abnormality of the basal ganglia, thalami and brainstem. There is mild/moderate cerebellar atrophy. There is no intracranial hemorrhage. There are no findings of an acute ischemic infarction. Atherosclerotic calcification of bilateral cavernous ICAs. There is mucoperiosteal inflammatory disease of the right maxillary sinus consistent with mild chronic sinusitis. Chronic left mastoiditis. CT/Brain/Head without Contrast IMPRESSION: 1. Chronic involutional changes of the brain. 2. No acute intracranial abnormality demonstrated. Electronically Signed: Gina Spangler MD at 7:45 EDT Tel , Service support ,
[2017-10-26 06:41] LABS: Allen Test POS; Base Excess 2 mmol/L (-2 to +2); Bicarbonate 26.8 mmol/L (22-26); Blood Gas Specimen Type ART; FI02 40; Mode A-C; O2 Delivery Device Vent; PEEP 5; PO2 60 mmHG (75-100); RR 16; SITE L Radial; SO2 91 % (95-99); Time Given 635; Total Carbon Dioxide 28 mmol/L; Vt 500; pCO2 43.2 mmHg (35-45)
--- NOTE | 2017-10-26 06:58 | PCM.PN.INT ---
Subjective: The patient was seen and examined at the bedside this morning. Events from the last 24 hours have been reviewed. The patient is currently afebrile, hemodynamically stable and maintaining appropriate oxygen saturations with an FiO2 requirement of 40%. Nursing staff did report the suctioning of thick, rust colored secretions from his endotracheal tube overnight. Several hours ago, the patient became less responsive. He will no longer follow simple commands. An arterial blood gas that was obtained revealed normal gas exchange. He did fail his spontaneous breathing trial this morning with hypoxia and tachypnea noted. Objective: The patient's most recent lab work, culture data and imaging studies have all been personally reviewed. Initial head CT dated October 22 was negative, only revealing chronic involutional changes. Neck CTA dated October 22 revealed less than 50% stenosis of the proximal internal carotid arteries bilaterally, near complete occlusion of the proximal vertebral artery on the right and moderate focal stenosis at the origin of the left vertebral artery. Brain MRI dated October 23 revealed involutional changes of the brain without MR evidence of acute infarction. Head/neck MRA completed on October 23 revealed nonvisualization of the right intradural vertebral artery suggesting possible thrombus. There was also note of apparent thrombus of the left superior cerebellar artery. EEG also completed on October 23 revealed a normal awake and drowsy EEG without epileptiform discharges or electrographic seizure activity. Surface echocardiogram revealed normal LV size and function with an ejection fraction of 55% and evidence of stage I diastolic dysfunction. CTA chest dated October 24 revealed extensive right-sided pulmonary emboli along with right sided airspace disease and volume loss. A bedside bronchoscopy was performed on October 24, which did reveal evidence of copious, tenacious secretions bilaterally. Strep and urine Legionella antigens were both negative. Urine culture is currently pending. Bronchial alveolar lavage culture data revealed alphahemolytic Streptococcus. General: - - Intubated and mechanically ventilated. Sedation is currently on hold. No ventilator dyssynchrony noted. HEENT: Atraumatic, Normocephalic, Sluggish Pupils Oral: Moist Mucosa, - - Endotracheal and OG tubes in place Neck: Supple, No Nodes, Trachea Midline Lungs: No wheeze, No rales, Diminished, Rhonchi Cardiovascular: Regular rate, Regular Rhythm, Normal S1, Normal S2, No murmurs Abdomen: Bowel Sounds Present, Soft, Non Tender Extremities: No clubbing, No cyanosis, No edema Skin: No breakdown Musculoskeletal: No Muscle Wasting Lymphatic: No Cervical, Supraclavicular, or Inguinal Adenopathy Neurological: - - The patient is less responsive this morning to both verbal and tactile stimulation. He is no longer following simple commands. Vital Signs Temp Pulse Resp BP Pulse Ox 98.9 F 69 16 143/59 H 93 10/26/17 04:00 10/26/17 06:00 10/26/17 06:00 10/26/17 06:00 10/26/17 06:00 Oxygen Flow Rate (L/min) 2 Oxygen Delivery Method Mechanical Ventilator Weight: 204 lb 5.896 oz Body Mass Index (BMI) 24.5 Finger Stick Blood Glucose 0 Intake and Output for Last 24 Hours 10/24/17 10/25/17 10/26/17 23:59 23:59 23:59 Intake Total 3104.8 / 3104.8 7018.9 / 7018.9 3221.2 / 3221.2 Output Total 1400 / 1400 2685 / 2685 625 / 625 Balance 1704.8 / 1704.8 4333.9 / 4333.9 2596.2 / 2596.2 Labs (Last 48 Hours) 10/23/17 10/24/17 10/24/17 05:20 06:58 06:58 WBC 17.3 H RBC 4.99 Hgb 16.5 Hct 47.3 MCV 94.8 H MCH 33.1 H MCHC 34.9 RDW 13.4 RDW Differential 45.0 H Plt Count 253 MPV 9.0 Immature Gran % (Auto) 0.400 Neut % (Auto) 86.7 H Lymph % (Auto) 3.5 L Hinds % (Auto) 9.2 Eos % (Auto) 0.1 Baso % (Auto) 0.1 Absolute Neuts (auto) 15.0 H Absolute Lymphs (auto) 0.60 L Total Counted Not Reportable Differential Comment COMMENT Diff Path Review Reviewed Reviewed APTT Specimen Type Sample Site pH Bicarbonate Actual POC Total CO2 Base Excess O2 Saturation O2 % ABG pCO2 ABG pO2 Jermaine Test Respiration Rate O2 Delivery Device Minute Volume Vent Mode Tidal Volume POC PEEP Blood Gas Notified Whom Blood Gas Notified Time Sodium 138 Potassium 3.8 Chloride 101 Carbon Dioxide 29.0 Anion Gap 8 BUN 13 Creatinine 0.74 Estim Creat Clear Calc 71.02 Est GFR (MDRD) Af Amer 133 Est GFR (MDRD) Non-Af 110 BUN/Creatinine Ratio 17.7 Glucose 132 H Calcium 8.3 L Phosphorus Magnesium Fluid Source Fluid Color Fluid Appearance Fluid WBC Fluid RBC Fluid Tot Cell Count Fluid Neutrophils Fluid Lymphocytes Fluid Monocytes Fl Pathologist Comment Fluid Comment 2 MRSA (PCR) POC Glucose 10/24/17 10/24/17 10/24/17 09:16 11:00 11:00 WBC RBC Hgb Hct MCV MCH MCHC RDW RDW Differential Plt Count MPV Immature Gran % (Auto) Neut % (Auto) Lymph % (Auto) Hinds % (Auto) Eos % (Auto) Baso % (Auto) Absolute Neuts (auto) Absolute Lymphs (auto) Total Counted Differential Comment Diff Path Review APTT 31.8 Specimen Type ART Sample Site R Radial pH 7.25 L Bicarbonate Actual 29.3 H POC Total CO2 31 Base Excess 2 O2 Saturation 90 L O2 % 100 ABG pCO2 66.7 H ABG pO2 69 L Jermaine Test POS Respiration Rate O2 Delivery Device Ambu Minute Volume Vent Mode Tidal Volume POC PEEP Blood Gas Notified Whom ICU MD Blood Gas Notified Time 916 Sodium Potassium Chloride Carbon Dioxide Anion Gap BUN Creatinine Estim Creat Clear Calc Est GFR (MDRD) Af Amer Est GFR (MDRD) Non-Af BUN/Creatinine Ratio Glucose Calcium Phosphorus Magnesium Fluid Source Fluid Color Fluid Appearance Fluid WBC Fluid RBC Fluid Tot Cell Count Fluid Neutrophils Fluid Lymphocytes Fluid Monocytes Fl Pathologist Comment Fluid Comment 2 MRSA (PCR) Negative POC Glucose 10/24/17 10/24/17 10/24/17 11:27 18:00 Unknown WBC RBC Hgb Hct MCV MCH MCHC RDW RDW Differential Plt Count MPV Immature Gran % (Auto) Neut % (Auto) Lymph % (Auto) Hinds % (Auto) Eos % (Auto) Baso % (Auto) Absolute Neuts (auto) Absolute Lymphs (auto) Total Counted Differential Comment Diff Path Review APTT > 250.0 H* Specimen Type ART Sample Site R Brachial pH 7.29 L Bicarbonate Actual 29.4 H POC Total CO2 31 Base Excess 3 H O2 Saturation 96 O2 % 100 ABG pCO2 60.7 H ABG pO2 93 Jermaine Test POS Respiration Rate 12 O2 Delivery Device Vent Minute Volume 6.00 Vent Mode A-C Tidal Volume 450 POC PEEP 10 Blood Gas Notified Whom ICU MD Blood Gas Notified Time 1120 Sodium Potassium Chloride Carbon Dioxide Anion Gap BUN Creatinine Estim Creat Clear Calc Est GFR (MDRD) Af Amer Est GFR (MDRD) Non-Af BUN/Creatinine Ratio Glucose Calcium Phosphorus Magnesium Fluid Source BRONCHIAL LAVAGE Fluid Color LT YEL Fluid Appearance TURBID Fluid WBC 349527 Fluid RBC 4444 Fluid Tot Cell Count TNP Fluid Neutrophils 96 Fluid Lymphocytes 2 Fluid Monocytes 2 Fl Pathologist Comment Reviewed Fluid Comment 2 Not Reportable MRSA (PCR) POC Glucose 10/25/17 10/25/17 10/25/17 01:02 07:45 07:45 WBC 14.7 H RBC 4.82 Hgb 15.5 Hct 45.0 MCV 93.4 MCH 32.2 H MCHC 34.4 RDW 13.1 RDW Differential 43.7 Plt Count 183 MPV 9.5 Immature Gran % (Auto) 0.600 Neut % (Auto) 87.4 H Lymph % (Auto) 4.6 L Hinds % (Auto) 7.2 Eos % (Auto) 0.1 Baso % (Auto) 0.1 Absolute Neuts (auto) 12.9 H Absolute Lymphs (auto) 0.67 L Total Counted Not Reportable Differential Comment Diff Path Review APTT 87.2 H 58.5 H Specimen Type Sample Site pH Bicarbonate Actual POC Total CO2 Base Excess O2 Saturation O2 % ABG pCO2 ABG pO2 Jermaine Test Respiration Rate O2 Delivery Device Minute Volume Vent Mode Tidal Volume POC PEEP Blood Gas Notified Whom Blood Gas Notified Time Sodium Potassium Chloride Carbon Dioxide Anion Gap BUN Creatinine Estim Creat Clear Calc Est GFR (MDRD) Af Amer Est GFR (MDRD) Non-Af BUN/Creatinine Ratio Glucose Calcium Phosphorus Magnesium Fluid Source Fluid Color Fluid Appearance Fluid WBC Fluid RBC Fluid Tot Cell Count Fluid Neutrophils Fluid Lymphocytes Fluid Monocytes Fl Pathologist Comment Fluid Comment 2 MRSA (PCR) POC Glucose 10/25/17 10/25/17 10/25/17 07:45 08:21 14:25 WBC RBC Hgb Hct MCV MCH MCHC RDW RDW Differential Plt Count MPV Immature Gran % (Auto) Neut % (Auto) Lymph % (Auto) Hinds % (Auto) Eos % (Auto) Baso % (Auto) Absolute Neuts (auto) Absolute Lymphs (auto) Total Counted Differential Comment Diff Path Review APTT 76.1 H Specimen Type ART Sample Site R Radial pH 7.40 Bicarbonate Actual 26.9 H POC Total CO2 28 Base Excess 2 O2 Saturation 95 O2 % 40 ABG pCO2 43.4 ABG pO2 75 Jermaine Test POS Respiration Rate 16 O2 Delivery Device Vent Minute Volume 8.00 Vent Mode A-C Tidal Volume 500 POC PEEP 8 Blood Gas Notified Whom ICU MD Blood Gas Notified Time 816 Sodium 134 L Potassium 3.4 L Chloride 99 Carbon Dioxide 26.0 Anion Gap 9 BUN 17 Creatinine 0.90 Estim Creat Clear Calc 78.91 Est GFR (MDRD) Af Amer 106 Est GFR (MDRD) Non-Af 88 BUN/Creatinine Ratio 19.0 Glucose 133 H Calcium 8.0 L Phosphorus 1.9 L Magnesium 2.1 Fluid Source Fluid Color Fluid Appearance Fluid WBC Fluid RBC Fluid Tot Cell Count Fluid Neutrophils Fluid Lymphocytes Fluid Monocytes Fl Pathologist Comment Fluid Comment 2 MRSA (PCR) POC Glucose 10/26/17 10/26/17 10/26/17 00:04 04:45 05:34 WBC RBC Hgb Hct MCV MCH MCHC RDW RDW Differential Plt Count MPV Immature Gran % (Auto) Neut % (Auto) Lymph % (Auto) Hinds % (Auto) Eos % (Auto) Baso % (Auto) Absolute Neuts (auto) Absolute Lymphs (auto) Total Counted Differential Comment Diff Path Review APTT 38.3 H Specimen Type Sample Site pH Bicarbonate Actual POC Total CO2 Base Excess O2 Saturation O2 % ABG pCO2 ABG pO2 Jermaine Test Respiration Rate O2 Delivery Device Minute Volume Vent Mode Tidal Volume POC PEEP Blood Gas Notified Whom Blood Gas Notified Time Sodium Potassium Chloride Carbon Dioxide Anion Gap BUN Creatinine Estim Creat Clear Calc Est GFR (MDRD) Af Amer Est GFR (MDRD) Non-Af BUN/Creatinine Ratio Glucose Calcium Phosphorus Magnesium Fluid Source Fluid Color Fluid Appearance Fluid WBC Fluid RBC Fluid Tot Cell Count Fluid Neutrophils Fluid Lymphocytes Fluid Monocytes Fl Pathologist Comment Fluid Comment 2 MRSA (PCR) POC Glucose 126 H 189 H 10/26/17 06:36 WBC RBC Hgb Hct MCV MCH MCHC RDW RDW Differential Plt Count MPV Immature Gran % (Auto) Neut % (Auto) Lymph % (Auto) Hinds % (Auto) Eos % (Auto) Baso % (Auto) Absolute Neuts (auto) Absolute Lymphs (auto) Total Counted Differential Comment Diff Path Review APTT Specimen Type ART Sample Site L Radial pH 7.40 Bicarbonate Actual 26.8 H POC Total CO2 28 Base Excess 2 O2 Saturation 91 L O2 % 40 ABG pCO2 43.2 ABG pO2 60 L Jermaine Test POS Respiration Rate 16 O2 Delivery Device Vent Minute Volume 9.00 Vent Mode A-C Tidal Volume 500 POC PEEP 5 Blood Gas Notified Whom ICU Blood Gas Notified Time 635 Sodium Potassium Chloride Carbon Dioxide Anion Gap BUN Creatinine Estim Creat Clear Calc Est GFR (MDRD) Af Amer Est GFR (MDRD) Non-Af BUN/Creatinine Ratio Glucose Calcium Phosphorus Magnesium Fluid Source Fluid Color Fluid Appearance Fluid WBC Fluid RBC Fluid Tot Cell Count Fluid Neutrophils Fluid Lymphocytes Fluid Monocytes Fl Pathologist Comment Fluid Comment 2 MRSA (PCR) POC Glucose Microbiology 10/24/17 Unknown Bronchial Lavage - Left Middle Lobe Gram Stain - Final 10/24/17 Unknown Bronchial Lavage - Left Middle Lobe Respiratory Culture - Preliminary Alpha Hemolytic Streptococcus 10/24/17 Unknown Bronchial Lavage - Right Middle Lobe Gram Stain - Final 10/24/17 Unknown Bronchial Lavage - Right Middle Lobe Respiratory Culture - Preliminary Alpha Hemolytic Streptococcus 10/24/17 11:25 Sputum, Induced/Lukens Gram Stain - Final 10/24/17 11:25 Sputum, Induced/Lukens Respiratory Culture - Preliminary Appears to be normal respiratory nelson. Further studies to follow. 10/24/17 10:30 Blood Culture (Wb) - Anticubital Right Bacteria Detection (PCR) - Final Coag Negative Staph 10/24/17 10:30 Blood Culture (Wb) - Anticubital Right Blood Culture - Preliminary 10/24/17 11:20 Urine Catheter - Ernst Streptococcus pneumoniae Antigen (M - Final 10/24/17 11:20 Urine Catheter - Ernst Legionella Antigen - Final Clinical Impression(s) from Imaging Studies Brain CT 10/22/17 07:53 IMPRESSION: Chronic involutional changes of the brain. Electronically Signed: Tom Garcia MD at 8:42 EDT Tel [phone], Service support , Chest X-Ray 10/22/17 08:20 IMPRESSION: Cardiomegaly. Mild increased markings at the lung bases suggestive of linear atelectasis and/or scarring. Electronically Signed: Tom Garcia MD at 8:43 EDT Tel [phone], Service support , Neck CTA 10/22/17 14:41 IMPRESSION: Less than 50% stenosis proximal internal carotid arteries bilaterally due to mixed plaque. Occlusion or near occlusion proximal vertebral artery on the right. Moderate focal stenosis at the origin of the left vertebral artery. Electronically Signed: Bhavin Jonas MD at 16:12 EDT , Service support , Brain CT 10/23/17 05:55 IMPRESSION: Generalized brain atrophy. No acute findings in the brain Electronically Signed: Vaibhav GoodwinJeniferTrace, at 6:08 EDT Tel , Service support , Brain MRI 10/23/17 07:17 IMPRESSION: 1. Involutional changes of the brain, as described above. 2. No MR evidence for acute infarct. N.B. : The above information has been verbally conveyed by Aimee Osei MD to Mateo Mkceon, on 10/23/2017 08:24:08 (ET). Electronically Signed: Aimee Osei MD at 8:22 EDT , Service support , Head MRA 10/23/17 08:12 IMPRESSION: 1. Nonvisualization of the right intradural vertebral artery suggesting possible thrombosis. 2. 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 3. No MRA evidence for aneurysm. N.B. : The above information has been verbally conveyed by Aimee Osei MD to Mateo LAWSON, on 10/23/2017 10:08:03 (ET). Electronically Signed: Aimee Osei MD at 9:55 EDT , Service support , Neck MRA 10/23/17 08:12 IMPRESSION: 1. 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 2. Nonhemodynamically significant stenoses of the left vertebral artery, common carotid and internal carotid arteries. N.B. : The above information has been verbally conveyed by Aimee Osei MD to Mateo Manzo, on 10/23/2017 10:07:17 (ET). Electronically Signed: Aimee Osei MD at 10:01 EDT , Service support , Chest X-Ray 10/23/17 09:39 IMPRESSION: The tip of the endotracheal tube is at 5.5 cm proximal to the bertha. The tip of the orogastric tube is in the body of the stomach. Bibasilar atelectasis and/or infiltrate slightly worse on the right lung base. Electronically Signed: Tom Garcia MD at 11:12 EDT Tel [phone], Service support , Chest X-Ray 10/24/17 09:04 IMPRESSION: Right lower lobe fine loss with small right pleural effusion. Endobronchial mucous plug should be ruled out. Electronically Signed: Tom Garcia MD at 11:00 EDT Tel [phone], Service support , Chest CTA 10/24/17 09:15 IMPRESSION: Pulmonary emboli involving the right upper lobe pulmonary arterial branches as well as the interlobar artery. Volume loss in the right hemithorax with airspace disease and/or atelectasis and volume loss in the right lower lobe. Fluid or soft tissue density seen within the right interlobar bronchus. The results were communicated to the attending physician. Electronically Signed: Tom Garcia MD at 10:37 EDT Tel [phone], Service support , Medical Necessity - Tobacco Use Smoking Status: Former smoker Assessment/Plan All Active Problems Alcohol abuse (Acute) Hypertensive encephalopathy syndrome (Acute) Hypertensive emergency (Acute) Acute encephalopathy (Acute) CVA (cerebral vascular accident) (Acute) Unresponsive episode (Acute) RECOMMENDATIONS: 1. Obtain stat CT head. If negative, will obtain stat EEG. 2. Obtain repeat CBC with differential and BMP 3. Continue empiric Zosyn and vancomycin, pending finalized infectious workup. 4. Continue tube feeds as ordered 5. Continue heparin drip 6. Continue nicardipine drip, along with oral antihypertensive medications down G-tube. 7. Continue appropriate ICU prophylaxis IMPRESSIONS: 1. Acute encephalopathy Differential etiologies initially included ischemic CVA, nonconvulsive status epilepticus and reversible posterior leukoencephalopathy syndrome. However, subsequent workup including MRI/MRA head and neck revealed no acute infarction. EEG demonstrated no evidence of epileptiform discharges or seizure activity. Therefore, the most likely etiology for the patient's encephalopathy was secondary to his profound hypertension, coupled with underlying hypercarbia, which likely developed as a consequence of his underlying pulmonary infectious process. His acid-base status has improved with invasive mechanical ventilation. His blood pressure is being actively treated, as is his underlying pulmonary infectious process. Therefore, I anticipate continued improvement in his mentation as his underlying metabolic derangements are corrected. 2. Acute hypercarbic and hypoxemic respiratory failure secondary to pulmonary embolism and right lower lobe airspace disease The patient was emergently intubated on the morning of October 23 for airway protection due to #1. The patient failed his attempted extubation on the morning of October 24. An arterial blood gas obtained shortly after intubation revealed hypercarbia. In addition, the patient was noted to be increasingly hypoxic upon extubation. Therefore, a stat CTA chest was obtained, which revealed significant right-sided pulmonary embolization along with right lower lobe airspace disease and volume loss. A bedside bronchoscopy was performed which did reveal copious amounts of purulent, tenacious secretions bilaterally. The patient is being maintained on broad-spectrum antibiotics, accordingly. 3. Sepsis secondary to severe multifocal pneumonia and gram-positive bacteremia The patient will be maintained on broad-spectrum antibiotics, pending infectious workup. Repeat blood cultures are pending. It is likely that the coag negative staph identified on the blood culture dated October 24 was a contaminant. 4. Hypertensive urgency The patient does have a baseline history of hypertension, but was reportedly only on a small dose of Norvasc as an outpatient. His blood pressures have been quite labile during his admission with large fluctuations in his systolic parameters. He did require a nicardipine drip, as his systolic pressures upon admission to the ICU were greater than 200 mmHg. We will plan to continue nicardipine drip and initiate oral antihypertensive regimen down his gastric tube. The patient is currently receiving hydrochlorothiazide, with lisinopril and labetalol being added today. 5. Personal history of alcohol dependence Complicates care, management, recovery and prognosis. The patient reportedly drinks 6 beers daily but is never had significant withdrawal symptoms and/or withdrawal seizures. TIME: 45 minutes of critical care time, independent of procedures, was spent addressing the patient's acute encephalopathy, acute respiratory failure, hypertensive emergency, right lower lobe pneumonia, pulmonary embolism, history of alcohol dependence, review of all data and collaboration with the care team. ([id number]) Code Visit [id number]: [id number] Critical care first hour
--- NOTE | 2017-10-26 07:05 | PN_ITS ---
Subjective: The patient was seen and examined at the bedside this morning. Events from the last 24 hours have been reviewed. The patient is currently afebrile, hemodynamically stable and maintaining appropriate oxygen saturations with an FiO2 requirement of 40%. Nursing staff did report the suctioning of thick, rust colored secretions from his endotracheal tube overnight. Several hours ago , the patient became less responsive. He will no longer follow simple commands. An arterial blood gas that was obtained revealed normal gas exchange. He did fail his spontaneous breathing trial this morning with hypoxia and tachypnea noted. Objective: The patient's most recent lab work, culture data and imaging studies have all been personally reviewed. Initial head CT dated October 22 was negative, only revealing chronic involutional changes. Neck CTA dated October 22 revealed less than 50% stenosis of the proximal internal carotid arteries bilaterally, near complete occlusion of the proximal vertebral artery on the right and moderate focal stenosis at the origin of the left vertebral artery. Brain MRI dated October 23 revealed involutional changes of the brain without MR evidence of acute infarction. Head/neck MRA completed on October 23 revealed nonvisualization of the right intradural vertebral artery suggesting possible thrombus. There was also note of apparent thrombus of the left superior cerebellar artery. EEG also completed on October 23 revealed a normal awake and drowsy EEG without epileptiform discharges or electrographic seizure activity. Surface echocardiogram revealed normal LV size and function with an ejection fraction of 55% and evidence of stage I diastolic dysfunction. CTA chest dated October 24 revealed extensive right-sided pulmonary emboli along with right sided airspace disease and volume loss. A bedside bronchoscopy was performed on October 24, which did reveal evidence of copious, tenacious secretions bilaterally. Strep and urine Legionella antigens were both negative. Urine culture is currently pending. Bronchial alveolar lavage culture data revealed alphahemolytic Streptococcus. General: - - Intubated and mechanically ventilated. Sedation is currently on hold. No ventilator dyssynchrony noted. HEENT: Atraumatic, Normocephalic, Sluggish Pupils Oral: Moist Mucosa, - - Endotracheal and OG tubes in place Neck: Supple, No Nodes, Trachea Midline Lungs: No wheeze, No rales, Diminished, Rhonchi Cardiovascular: Regular rate, Regular Rhythm, Normal S1, Normal S2, No murmurs Abdomen: Bowel Sounds Present, Soft, Non Tender Extremities: No clubbing, No cyanosis, No edema Skin: No breakdown Musculoskeletal: No Muscle Wasting Lymphatic: No Cervical, Supraclavicular, or Inguinal Adenopathy Neurological: - - The patient is less responsive this morning to both verbal and tactile stimulation. He is no longer following simple commands. Vital Signs Temp Pulse Resp BP Pulse Ox 98.9 F 69 16 143/59 H 93 10/26/17 04:00 10/26/17 06:00 10/26/17 06:00 10/26/17 06:00 10/26/17 06:00 Oxygen Flow Rate (L/min) 2 Oxygen Delivery Method Mechanical Ventilator Weight: 204 lb 5.896 oz Body Mass Index (BMI) 24.5 Finger Stick Blood Glucose 0 Intake and Output for Last 24 Hours 10/24/17 10/25/17 10/26/17 23:59 23:59 23:59 Intake Total 3104.8 / 3104.8 7018.9 / 7018.9 3221.2 / 3221.2 Output Total 1400 / 1400 2685 / 2685 625 / 625 Balance 1704.8 / 1704.8 4333.9 / 4333.9 2596.2 / 2596.2 Labs (Last 48 Hours) 10/23/17 10/24/17 10/24/17 05:20 06:58 06:58 WBC 17.3 H RBC 4.99 Hgb 16.5 Hct 47.3 MCV 94.8 H MCH 33.1 H MCHC 34.9 RDW 13.4 RDW Differential 45.0 H Plt Count 253 MPV 9.0 Immature Gran % (Auto) 0.400 Neut % (Auto) 86.7 H Lymph % (Auto) 3.5 L Dodge % (Auto) 9.2 Eos % (Auto) 0.1 Baso % (Auto) 0.1 Absolute Neuts (auto) 15.0 H Absolute Lymphs (auto) 0.60 L Total Counted Not Reportable Differential Comment COMMENT Diff Path Review Reviewed Reviewed APTT Specimen Type Sample Site pH Bicarbonate Actual POC Total CO2 Base Excess O2 Saturation O2 % ABG pCO2 ABG pO2 Jermaine Test Respiration Rate O2 Delivery Device Minute Volume Vent Mode Tidal Volume POC PEEP Blood Gas Notified Whom Blood Gas Notified Time Sodium 138 Potassium 3.8 Chloride 101 Carbon Dioxide 29.0 Anion Gap 8 BUN 13 Creatinine 0.74 Estim Creat Clear Calc 71.02 Est GFR (MDRD) Af Amer 133 Est GFR (MDRD) Non-Af 110 BUN/Creatinine Ratio 17.7 Glucose 132 H Calcium 8.3 L Phosphorus Magnesium Fluid Source Fluid Color Fluid Appearance Fluid WBC Fluid RBC Fluid Tot Cell Count Fluid Neutrophils Fluid Lymphocytes Fluid Monocytes Fl Pathologist Comment Fluid Comment 2 MRSA (PCR) POC Glucose 10/24/17 10/24/17 10/24/17 09:16 11:00 11:00 WBC RBC Hgb Hct MCV MCH MCHC RDW RDW Differential Plt Count MPV Immature Gran % (Auto) Neut % (Auto) Lymph % (Auto) Dodge % (Auto) Eos % (Auto) Baso % (Auto) Absolute Neuts (auto) Absolute Lymphs (auto) Total Counted Differential Comment Diff Path Review APTT 31.8 Specimen Type ART Sample Site R Radial pH 7.25 L Bicarbonate Actual 29.3 H POC Total CO2 31 Base Excess 2 O2 Saturation 90 L O2 % 100 ABG pCO2 66.7 H ABG pO2 69 L Jermaine Test POS Respiration Rate O2 Delivery Device Ambu Minute Volume Vent Mode Tidal Volume POC PEEP Blood Gas Notified Whom ICU MD Blood Gas Notified Time 916 Sodium Potassium Chloride Carbon Dioxide Anion Gap BUN Creatinine Estim Creat Clear Calc Est GFR (MDRD) Af Amer Est GFR (MDRD) Non-Af BUN/Creatinine Ratio Glucose Calcium Phosphorus Magnesium Fluid Source Fluid Color Fluid Appearance Fluid WBC Fluid RBC Fluid Tot Cell Count Fluid Neutrophils Fluid Lymphocytes Fluid Monocytes Fl Pathologist Comment Fluid Comment 2 MRSA (PCR) Negative POC Glucose 10/24/17 10/24/17 10/24/17 11:27 18:00 Unknown WBC RBC Hgb Hct MCV MCH MCHC RDW RDW Differential Plt Count MPV Immature Gran % (Auto) Neut % (Auto) Lymph % (Auto) Dodge % (Auto) Eos % (Auto) Baso % (Auto) Absolute Neuts (auto) Absolute Lymphs (auto) Total Counted Differential Comment Diff Path Review APTT > 250.0 H* Specimen Type ART Sample Site R Brachial pH 7.29 L Bicarbonate Actual 29.4 H POC Total CO2 31 Base Excess 3 H O2 Saturation 96 O2 % 100 ABG pCO2 60.7 H ABG pO2 93 Jermaine Test POS Respiration Rate 12 O2 Delivery Device Vent Minute Volume 6.00 Vent Mode A-C Tidal Volume 450 POC PEEP 10 Blood Gas Notified Whom ICU MD Blood Gas Notified Time 1120 Sodium Potassium Chloride Carbon Dioxide Anion Gap BUN Creatinine Estim Creat Clear Calc Est GFR (MDRD) Af Amer Est GFR (MDRD) Non-Af BUN/Creatinine Ratio Glucose Calcium Phosphorus Magnesium Fluid Source BRONCHIAL LAVAGE Fluid Color LT YEL Fluid Appearance TURBID Fluid WBC 520695 Fluid RBC 4444 Fluid Tot Cell Count TNP Fluid Neutrophils 96 Fluid Lymphocytes 2 Fluid Monocytes 2 Fl Pathologist Comment Reviewed Fluid Comment 2 Not Reportable MRSA (PCR) POC Glucose 10/25/17 10/25/17 10/25/17 01:02 07:45 07:45 WBC 14.7 H RBC 4.82 Hgb 15.5 Hct 45.0 MCV 93.4 MCH 32.2 H MCHC 34.4 RDW 13.1 RDW Differential 43.7 Plt Count 183 MPV 9.5 Immature Gran % (Auto) 0.600 Neut % (Auto) 87.4 H Lymph % (Auto) 4.6 L Dodge % (Auto) 7.2 Eos % (Auto) 0.1 Baso % (Auto) 0.1 Absolute Neuts (auto) 12.9 H Absolute Lymphs (auto) 0.67 L Total Counted Not Reportable Differential Comment Diff Path Review APTT 87.2 H 58.5 H Specimen Type Sample Site pH Bicarbonate Actual POC Total CO2 Base Excess O2 Saturation O2 % ABG pCO2 ABG pO2 Jermaine Test Respiration Rate O2 Delivery Device Minute Volume Vent Mode Tidal Volume POC PEEP Blood Gas Notified Whom Blood Gas Notified Time Sodium Potassium Chloride Carbon Dioxide Anion Gap BUN Creatinine Estim Creat Clear Calc Est GFR (MDRD) Af Amer Est GFR (MDRD) Non-Af BUN/Creatinine Ratio Glucose Calcium Phosphorus Magnesium Fluid Source Fluid Color Fluid Appearance Fluid WBC Fluid RBC Fluid Tot Cell Count Fluid Neutrophils Fluid Lymphocytes Fluid Monocytes Fl Pathologist Comment Fluid Comment 2 MRSA (PCR) POC Glucose 10/25/17 10/25/17 10/25/17 07:45 08:21 14:25 WBC RBC Hgb Hct MCV MCH MCHC RDW RDW Differential Plt Count MPV Immature Gran % (Auto) Neut % (Auto) Lymph % (Auto) Dodge % (Auto) Eos % (Auto) Baso % (Auto) Absolute Neuts (auto) Absolute Lymphs (auto) Total Counted Differential Comment Diff Path Review APTT 76.1 H Specimen Type ART Sample Site R Radial pH 7.40 Bicarbonate Actual 26.9 H POC Total CO2 28 Base Excess 2 O2 Saturation 95 O2 % 40 ABG pCO2 43.4 ABG pO2 75 Jermaine Test POS Respiration Rate 16 O2 Delivery Device Vent Minute Volume 8.00 Vent Mode A-C Tidal Volume 500 POC PEEP 8 Blood Gas Notified Whom ICU MD Blood Gas Notified Time 816 Sodium 134 L Potassium 3.4 L Chloride 99 Carbon Dioxide 26.0 Anion Gap 9 BUN 17 Creatinine 0.90 Estim Creat Clear Calc 78.91 Est GFR (MDRD) Af Amer 106 Est GFR (MDRD) Non-Af 88 BUN/Creatinine Ratio 19.0 Glucose 133 H Calcium 8.0 L Phosphorus 1.9 L Magnesium 2.1 Fluid Source Fluid Color Fluid Appearance Fluid WBC Fluid RBC Fluid Tot Cell Count Fluid Neutrophils Fluid Lymphocytes Fluid Monocytes Fl Pathologist Comment Fluid Comment 2 MRSA (PCR) POC Glucose 10/26/17 10/26/17 10/26/17 00:04 04:45 05:34 WBC RBC Hgb Hct MCV MCH MCHC RDW RDW Differential Plt Count MPV Immature Gran % (Auto) Neut % (Auto) Lymph % (Auto) Dodge % (Auto) Eos % (Auto) Baso % (Auto) Absolute Neuts (auto) Absolute Lymphs (auto) Total Counted Differential Comment Diff Path Review APTT 38.3 H Specimen Type Sample Site pH Bicarbonate Actual POC Total CO2 Base Excess O2 Saturation O2 % ABG pCO2 ABG pO2 Jermaine Test Respiration Rate O2 Delivery Device Minute Volume Vent Mode Tidal Volume POC PEEP Blood Gas Notified Whom Blood Gas Notified Time Sodium Potassium Chloride Carbon Dioxide Anion Gap BUN Creatinine Estim Creat Clear Calc Est GFR (MDRD) Af Amer Est GFR (MDRD) Non-Af BUN/Creatinine Ratio Glucose Calcium Phosphorus Magnesium Fluid Source Fluid Color Fluid Appearance Fluid WBC Fluid RBC Fluid Tot Cell Count Fluid Neutrophils Fluid Lymphocytes Fluid Monocytes Fl Pathologist Comment Fluid Comment 2 MRSA (PCR) POC Glucose 126 H 189 H 10/26/17 06:36 WBC RBC Hgb Hct MCV MCH MCHC RDW RDW Differential Plt Count MPV Immature Gran % (Auto) Neut % (Auto) Lymph % (Auto) Dodge % (Auto) Eos % (Auto) Baso % (Auto) Absolute Neuts (auto) Absolute Lymphs (auto) Total Counted Differential Comment Diff Path Review APTT Specimen Type ART Sample Site L Radial pH 7.40 Bicarbonate Actual 26.8 H POC Total CO2 28 Base Excess 2 O2 Saturation 91 L O2 % 40 ABG pCO2 43.2 ABG pO2 60 L Jermaine Test POS Respiration Rate 16 O2 Delivery Device Vent Minute Volume 9.00 Vent Mode A-C Tidal Volume 500 POC PEEP 5 Blood Gas Notified Whom ICU Blood Gas Notified Time 635 Sodium Potassium Chloride Carbon Dioxide Anion Gap BUN Creatinine Estim Creat Clear Calc Est GFR (MDRD) Af Amer Est GFR (MDRD) Non-Af BUN/Creatinine Ratio Glucose Calcium Phosphorus Magnesium Fluid Source Fluid Color Fluid Appearance Fluid WBC Fluid RBC Fluid Tot Cell Count Fluid Neutrophils Fluid Lymphocytes Fluid Monocytes Fl Pathologist Comment Fluid Comment 2 MRSA (PCR) POC Glucose Microbiology 10/24/17 Unknown Bronchial Lavage - Left Middle Lobe Gram Stain - Final 10/24/17 Unknown Bronchial Lavage - Left Middle Lobe Respiratory Culture - Preliminary Alpha Hemolytic Streptococcus 10/24/17 Unknown Bronchial Lavage - Right Middle Lobe Gram Stain - Final 10/24/17 Unknown Bronchial Lavage - Right Middle Lobe Respiratory Culture - Preliminary Alpha Hemolytic Streptococcus 10/24/17 11:25 Sputum, Induced/Lukens Gram Stain - Final 10/24/17 11:25 Sputum, Induced/Lukens Respiratory Culture - Preliminary Appears to be normal respiratory nelson. Further studies to follow. 10/24/17 10:30 Blood Culture (Wb) - Anticubital Right Bacteria Detection ( PCR) - Final Coag Negative Staph 10/24/17 10:30 Blood Culture (Wb) - Anticubital Right Blood Culture - Preliminary 10/24/17 11:20 Urine Catheter - Ernst Streptococcus pneumoniae Antigen (M - Final 10/24/17 11:20 Urine Catheter - Ernst Legionella Antigen - Final Clinical Impression(s) from Imaging Studies Brain CT 10/22/17 07:53 IMPRESSION: Chronic involutional changes of the brain. Electronically Signed: Tom Garcia MD at 8:42 EDT Tel [phone], Service support , Chest X-Ray 10/22/17 08:20 IMPRESSION: Cardiomegaly. Mild increased markings at the lung bases suggestive of linear atelectasis and/or scarring. Electronically Signed: Tom Garcia MD at 8:43 EDT Tel [phone], Service support , Neck CTA 10/22/17 14:41 IMPRESSION: Less than 50% stenosis proximal internal carotid arteries bilaterally due to mixed plaque. Occlusion or near occlusion proximal vertebral artery on the right. Moderate focal stenosis at the origin of the left vertebral artery. Electronically Signed: Bhavin Jonas MD at 16:12 EDT , Service support , Brain CT 10/23/17 05:55 IMPRESSION: Generalized brain atrophy. No acute findings in the brain Electronically Signed: Vaibhav GoodwinJeniferTrace, at 6:08 EDT Tel , Service support , Brain MRI 10/23/17 07:17 IMPRESSION: 1. Involutional changes of the brain, as described above. 2. No MR evidence for acute infarct. N.B. : The above information has been verbally conveyed by Aimee Osei MD to Mateo Mckeon, on 10/23/2017 08:24:08 (ET). Electronically Signed: Aimee Osei MD at 8:22 EDT , Service support , Head MRA 10/23/17 08:12 IMPRESSION: 1. Nonvisualization of the right intradural vertebral artery suggesting possible thrombosis. 2. 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 3. No MRA evidence for aneurysm. N.B. : The above information has been verbally conveyed by Aimee Osei MD to Mateo LAWSON, on 10/23/2017 10:08:03 (ET). Electronically Signed: Aimee Osei MD at 9:55 EDT , Service support , Neck MRA 10/23/17 08:12 IMPRESSION: 1. 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 2. Nonhemodynamically significant stenoses of the left vertebral artery, common carotid and internal carotid arteries. N.B. : The above information has been verbally conveyed by Aimee Osei MD to Mateo Manzo, on 10/23/2017 10:07:17 (ET). Electronically Signed: Aimee Osei MD at 10:01 EDT , Service support , Chest X-Ray 10/23/17 09:39 IMPRESSION: The tip of the endotracheal tube is at 5.5 cm proximal to the bertha. The tip of the orogastric tube is in the body of the stomach. Bibasilar atelectasis and/or infiltrate slightly worse on the right lung base. Electronically Signed: Tom Garcia MD at 11:12 EDT Tel [phone], Service support , Chest X-Ray 10/24/17 09:04 IMPRESSION: Right lower lobe fine loss with small right pleural effusion. Endobronchial mucous plug should be ruled out. Electronically Signed: Tom Garcia MD at 11:00 EDT Tel [phone], Service support , Chest CTA 10/24/17 09:15 IMPRESSION: Pulmonary emboli involving the right upper lobe pulmonary arterial branches as well as the interlobar artery. Volume loss in the right hemithorax with airspace disease and/or atelectasis and volume loss in the right lower lobe. Fluid or soft tissue density seen within the right interlobar bronchus. The results were communicated to the attending physician. Electronically Signed: Tom Garcia MD at 10:37 EDT Tel [phone], Service support , Medical Necessity - Tobacco Use Smoking Status: Former smoker Assessment/Plan All Active Problems Alcohol abuse (Acute) Hypertensive encephalopathy syndrome (Acute) Hypertensive emergency (Acute) Acute encephalopathy (Acute) CVA (cerebral vascular accident) (Acute) Unresponsive episode (Acute) RECOMMENDATIONS: 1. Obtain stat CT head. If negative, will obtain stat EEG. 2. Obtain repeat CBC with differential and BMP 3. Continue empiric Zosyn and vancomycin, pending finalized infectious workup. 4. Continue tube feeds as ordered 5. Continue heparin drip 6. Continue nicardipine drip, along with oral antihypertensive medications down G-tube. 7. Continue appropriate ICU prophylaxis IMPRESSIONS: 1. Acute encephalopathy Differential etiologies initially included ischemic CVA, nonconvulsive status epilepticus and reversible posterior leukoencephalopathy syndrome. However, subsequent workup including MRI/MRA head and neck revealed no acute infarction. EEG demonstrated no evidence of epileptiform discharges or seizure activity. Therefore, the most likely etiology for the patient's encephalopathy was secondary to his profound hypertension, coupled with underlying hypercarbia, which likely developed as a consequence of his underlying pulmonary infectious process. His acid-base status has improved with invasive mechanical ventilation. His blood pressure is being actively treated, as is his underlying pulmonary infectious process. Therefore, I anticipate continued improvement in his mentation as his underlying metabolic derangements are corrected. 2. Acute hypercarbic and hypoxemic respiratory failure secondary to pulmonary embolism and right lower lobe airspace disease The patient was emergently intubated on the morning of October 23 for airway protection due to #1. The patient failed his attempted extubation on the morning of October 24. An arterial blood gas obtained shortly after intubation revealed hypercarbia. In addition, the patient was noted to be increasingly hypoxic upon extubation. Therefore, a stat CTA chest was obtained , which revealed significant right-sided pulmonary embolization along with right lower lobe airspace disease and volume loss. A bedside bronchoscopy was performed which did reveal copious amounts of purulent, tenacious secretions bilaterally. The patient is being maintained on broad-spectrum antibiotics, accordingly. 3. Sepsis secondary to severe multifocal pneumonia and gram-positive bacteremia The patient will be maintained on broad-spectrum antibiotics, pending infectious workup. Repeat blood cultures are pending. It is likely that the coag negative staph identified on the blood culture dated October 24 was a contaminant. 4. Hypertensive urgency The patient does have a baseline history of hypertension, but was reportedly only on a small dose of Norvasc as an outpatient. His blood pressures have been quite labile during his admission with large fluctuations in his systolic parameters. He did require a nicardipine drip, as his systolic pressures upon admission to the ICU were greater than 200 mmHg. We will plan to continue nicardipine drip and initiate oral antihypertensive regimen down his gastric tube. The patient is currently receiving hydrochlorothiazide, with lisinopril and labetalol being added today. 5. Personal history of alcohol dependence Complicates care, management, recovery and prognosis. The patient reportedly drinks 6 beers daily but is never had significant withdrawal symptoms and/or withdrawal seizures. TIME: 45 minutes of critical care time, independent of procedures, was spent addressing the patient's acute encephalopathy, acute respiratory failure, hypertensive emergency, right lower lobe pneumonia, pulmonary embolism, history of alcohol dependence, review of all data and collaboration with the care team. ([id number]) Code Visit [id number]: [id number] Critical care first hour
[2017-10-26 08:19] LABS: Absolute Lymphocyte Count 0.54 X10^3/ul (0.83-4.51); Absolute Neutrophil Count 11.4 X10^3/uL (2.0-7.7); Basophil# 0.03 X10^3/uL; Basophil% 0.2 % (0-1); Eosinophil# 0.06 X10^3/uL; Eosinophils% 0.4 % (0-5); Hematocrit 42.9 % (40-54); Hemoglobin 14.7 g/dl (13.0-16.5); Lymphocyte # 0.54 X10^3/ul (4.0); Mean Corp Hgb Conc 34.3 g/gl (32-36); Mean Corpuscular Volume 93.3 fL (80-94); Mean Platelet Vol. 9.6 fl (6.2-12.0); Monocyte# 1.26 X10^3/uL; Monocyte% 9.4 % (0-10); Neutrophil # 11.36 X10^3/uL (2.7-7.7); Neutrophil % 85.1 % (47-70); Platelet Count 161 K/mm3 (150-450); RBC Distribution Width CV 13.1 % (11.6-14.6); RBC Distribution Width SD 44.9 fl (35.1-43.9); White Blood Count 13.4 K/mm3 (4.4-11.0)
[2017-10-26 08:22] LABS: Differential Indicated SCAN CRITERIA MET; POSITIVE COUNT NO; POSITIVE DIFFERENTIAL YES; POSITIVE MORPHOLOGY NO
[2017-10-26 08:36] LABS: Anion Gap 8 (5-15); BUN 16 mg/dL (7-18); Calcium,Total 7.8 mg/dL (8.5-10.1); Chloride 98 mmol/L (98-107); EST Glomerular Filtration Rate 117 mL/min (>60); Est Glom Filt Rate - Afr Amer 142 mL/min (>60); Estimated Creatinine Clearance 71.02 ml/min; Glucose 154 mg/dL (74-106); Potassium 3.5 mmol/L (3.5-5.1); Sodium Level 132 mmol/L (136-145)
[2017-10-26 08:48] LABS: Differential Comment SCANNED
[2017-10-26] MEDS: Na Biphos/Potassium Phosphate PACKET 1 PACKET GT ×2 (09:48→14:27)
[2017-10-26] MEDS: Thiamine Hydrochloride 100 MG Tablet 200 MG GT (09:49)
[2017-10-26] MEDS: Senna/Docusate Sodium 1 Tablet 2 TABLET GT (09:49)
[2017-10-26] MEDS: Polyethylene Glycol 3350 17 GM PACKET GT (09:49)
[2017-10-26] MEDS: Aspirin 81 MG TAB.CHEW GT (09:50)
[2017-10-26] MEDS: Folic Acid 1 MG Tablet GT (09:50)
[2017-10-26] MEDS: Famotidine 20 MG Tablet GT (09:50)
[2017-10-26] MEDS: Labetalol 200 MG Tablet GT (09:50)
[2017-10-26] MEDS: Lisinopril 40 MG Tablet GT (09:51)
[2017-10-26] MEDS: hydroCHLOROthiazide 25 MG Tablet GT (09:51)
[2017-10-26] MEDS: Chlorhexidine 15 ML PO (09:52)
[2017-10-26] MEDS: Vital AF 1.2 Cal Liquid 1,000 ML 70 ML GT (10:09)
--- NOTE | 2017-10-26 12:00 | CASEMGMT ---
SOCIAL WORK: Chart reviewed. Patient continues to require mechanical ventilation and has become less responsive. Physician has ordered stat CT scan. Discharge planning needs remain uncertain at this time. RAHAT Trevino
[2017-10-26 12:25] LABS: Partial Thromboplast Time 58.1 Seconds (24.1-36.2)
[2017-10-26 12:56] LABS: Bedside Glucose 137 mg/dL (70-110)
--- NOTE | 2017-10-26 13:00 | NURSING ---
10/26/17 1030 Family requests patient be transferred to [facility] 1300. Patients family requested patient be transferred to [facility] instead of waiting on a bed for [facility].
[2017-10-26] MEDS: levETIRAcetam IV 1,000 MG/100 ML BAG 400 MG IV (13:06)
[2017-10-26 13:47] LABS: Vitamin B1, Thiamine 208.4 nmol/L (66.5-200.0)
--- NOTE | 2017-10-26 14:23 | PCM.DC ---
- Discharge Diagnoses Current Active Problems: Current Active and Chronic Problems HTN (hypertension) (Chronic) CVA (cerebral vascular accident) (Acute) Unresponsive episode (Acute) You will use the following diet at home:: Other - NPO but on eneteral feeding Allergies/Adverse Reactions: Allergies No Known Allergies Allergy (Verified 10/22/17 07:40) Medications to take at Discharge Amlodipine Besylate [Amlodipine Besylate] 2.5 mg PO DAILY 05/07/16 Primary Care Physician: Angela Cruz NP-C [Nurse Practitioner] - Test Results: Test results from this visit will be discussed in further detail at your follow-up appointment, if applicable. Proposed Discharge Date: 10/26/17
--- NOTE | 2017-10-26 14:26 | DCINST_ITS ---
- Discharge Diagnoses Current Active Problems: Current Active and Chronic Problems HTN (hypertension) (Chronic) CVA (cerebral vascular accident) (Acute) Unresponsive episode (Acute) You will use the following diet at home:: Other - NPO but on eneteral feeding Allergies/Adverse Reactions: Allergies No Known Allergies Allergy (Verified 10/22/17 07:40) Medications to take at Discharge Amlodipine Besylate [Amlodipine Besylate] 2.5 mg PO DAILY 05/07/16 Primary Care Physician: Angela Cruz NP-C [Nurse Practitioner] - Test Results: Test results from this visit will be discussed in further detail at your follow- up appointment, if applicable. Proposed Discharge Date: 10/26/17
--- NOTE | 2017-10-26 14:28 | PCM.DC.SUM ---
Discharge Date and Diagnosis - Problem List Patient Problems: Active and Suspected Problems Alcohol abuse (Acute) Hypertensive encephalopathy syndrome (Acute) Hypertensive emergency (Acute) Acute encephalopathy (Acute) CVA (cerebral vascular accident) (Acute) Unresponsive episode (Acute) Date of Admission: 10/22/17 Date of Discharge: 10/26/17 - Primary Discharge Diagnosis Active and Suspected Problems Alcohol abuse (Acute) Hypertensive encephalopathy syndrome (Acute) Hypertensive emergency (Acute) Acute encephalopathy (Acute) CVA (cerebral vascular accident) (Acute) Unresponsive episode (Acute) - Secondary Discharge Diagnosis Chronic Problems HTN (hypertension) (Chronic) Hospital Course and Treatment Imaging Results: 10/26/17 06:40 CT Head [Brain/Head without Contrast] [CT] Urgent Operations: None Procedures: Bronchoscopy, Electroencephalogram, Intubation Summary of Care Provided: The patient is a 77 year old M admitted for what appeared to be stroke like symptoms with right hand weakness and bilateral leg weakness and slurring of speech. on arrival these symptoms had essentially resolved and brain CT was negative, however patient BP was noted to be markedly elevated at 244/122. Soon after getting MRI/MRA patient became unresponsive and had to be intubated and mechanically ventilated for airway protection. neuroimaging was negative for acute stroke/infarction and so diagnosis of hypertensive encephalopathy made and patient started on Nicardipine drip with gradual reduction of BP. On day 2 failed extubation with instant hypoxia and had to be reintubated. CT-PA done showed collapse of right lower lobe and PEs on the right. Patient then went on to get bronchoscopy with clearance and evacuation of copious amounts of very thick, tenacious and mucopurulent mucus plugs with adequate reexpansion and reinflation of the lung. Patient started on empiric antibiotics for presumed pneumonia. Early this morning after being off sedation a spontaneous breathing trial was done which patient failed and despite being off sedation for several hours now still remains poorly to non responsive. No structural or metabolic cause for impaired neurological function has been found and awake and drowsy EEG done here negative for epileptic activity. The credit support specialist has recommended transfer to a tertiary center as continuous EEG monitoring will be needed to definitively rule in or out a non convulsive status epilepticus. Family initially chose to have patient transferred to [facility]. However as beds not available at this time they have elected to have patient taken to [facility]. Dr. Andrews has kindly accepted this patient [] Home Medications: Medications to take at Discharge Amlodipine Besylate [Amlodipine Besylate] 2.5 mg PO DAILY 05/07/16 Primary Care Physician: Angela Cruz ELECTRONIC COMMUNICATIONS TECHNICIAN-C [Nurse Practitioner] - Disposition: Acute care Hospital Minutes spent on discharge:: 75 Patient Condition:: Guarded Medical Necessity - Tobacco Use Smoking Status: Former smoker Meaningful Use Info Meaningful Use Diagnoses (Choose all that apply): None applicable Code Visit Inpatient E&M: 79160 Disch Hosp
--- NOTE | 2017-10-26 14:43 | DS.PCM_ITS ---
Discharge Date and Diagnosis - Problem List Patient Problems: Active and Suspected Problems Alcohol abuse (Acute) Hypertensive encephalopathy syndrome (Acute) Hypertensive emergency (Acute) Acute encephalopathy (Acute) CVA (cerebral vascular accident) (Acute) Unresponsive episode (Acute) Date of Admission: 10/22/17 Date of Discharge: 10/26/17 - Primary Discharge Diagnosis Active and Suspected Problems Alcohol abuse (Acute) Hypertensive encephalopathy syndrome (Acute) Hypertensive emergency (Acute) Acute encephalopathy (Acute) CVA (cerebral vascular accident) (Acute) Unresponsive episode (Acute) - Secondary Discharge Diagnosis Chronic Problems HTN (hypertension) (Chronic) Hospital Course and Treatment Imaging Results: 10/26/17 06:40 CT Head [Brain/Head without Contrast] [CT] Urgent Operations: None Procedures: Bronchoscopy, Electroencephalogram, Intubation Summary of Care Provided: The patient is a 77 year old M admitted for what appeared to be stroke like symptoms with right hand weakness and bilateral leg weakness and slurring of speech. on arrival these symptoms had essentially resolved and brain CT was negative, however patient BP was noted to be markedly elevated at 244/122. Soon after getting MRI/MRA patient became unresponsive and had to be intubated and mechanically ventilated for airway protection. neuroimaging was negative for acute stroke/infarction and so diagnosis of hypertensive encephalopathy made and patient started on Nicardipine drip with gradual reduction of BP. On day 2 failed extubation with instant hypoxia and had to be reintubated. CT-PA done showed collapse of right lower lobe and PEs on the right. Patient then went on to get bronchoscopy with clearance and evacuation of copious amounts of very thick, tenacious and mucopurulent mucus plugs with adequate reexpansion and reinflation of the lung. Patient started on empiric antibiotics for presumed pneumonia. Early this morning after being off sedation a spontaneous breathing trial was done which patient failed and despite being off sedation for several hours now still remains poorly to non responsive. No structural or metabolic cause for impaired neurological function has been found and awake and drowsy EEG done here negative for epileptic activity. The assessment nurse practitioner has recommended transfer to a tertiary center as continuous EEG monitoring will be needed to definitively rule in or out a non convulsive status epilepticus. Family initially chose to have patient transferred to [facility]. However as beds not available at this time they have elected to have patient taken to [facility]. Dr. Andrews has kindly accepted this patient [] Home Medications: Medications to take at Discharge Amlodipine Besylate [Amlodipine Besylate] 2.5 mg PO DAILY 05/07/16 Primary Care Physician: Angela Cruz TUBE MACHINE OPERATOR-C [Nurse Practitioner] - Disposition: Acute care Hospital Minutes spent on discharge:: 75 Patient Condition:: Guarded Medical Necessity - Tobacco Use Smoking Status: Former smoker Meaningful Use Info Meaningful Use Diagnoses (Choose all that apply): None applicable Code Visit Inpatient E&M: 72248 Disch Hosp
[2017-10-26] MEDS: LORazepam 2 MG/ML Syringe 1 MG IV (15:15)
--- NOTE | 2017-10-26 15:25 | PCM.PN.NEU ---
Subjective: Patient seen and examined at bedside. Discussed with Dr. Brewer patient's current condition. Per Dr. Brewer patient has been unresponsive even after stopping the sedation with propofol since midnight, had a CT head done this AM which reported nothing acute. He got stat EEG today (10/26/17) which showed likely frontal sharps vs frontal eye movement artefact (final read pending), and was started on AED Keppra by ICU, was loaded with Keppra 1 g IV and started on Keppra 750 mg PO BID. Patient is being transferred to tertiary center for further NICU care. Patient admitted on 10/22/17 with right sided numbness, leg weakness, with SBP > 220 mmHg, then had unresponsive episode on 10/23 and was intubated for airway protection, was extubated on 10/24/17 but had hypoxia, needed reintubation, had CTA chest which showed extensive PE, started on heparin drip by ICU team, bronchoscopy done showed severe copious secretions. MRI brain done on admission reported nothing acute, MRA head/neck showed right vert occlusion. EEG done on 10/23/17 did not show any epileptiform discharges. - Physical Exam General: - - drowsy, opens eyes on commands, does not follow VC. HEENT: Normocephalic Neck: Supple Lungs: Normal air movement Cardiovascular: Normal S1, Normal S2 Abdomen: Bowel Sounds Present Extremities: No cyanosis Neurological: - - droswy, arousable, open eyes on commands, EOM- possible rigth 6th nerve palsy, does not move any extremities to commands, sensory/cerebellar/gait could not be assessed, Reflexes + B/L B/S/T/K/A, No NR. Vital Signs Temp Pulse Resp BP Pulse Ox 97.6 F L 71 17 171/86 H 96 10/26/17 12:00 10/26/17 15:00 10/26/17 15:00 10/26/17 15:00 10/26/17 14:00 Oxygen Flow Rate (L/min) 2 Oxygen Delivery Method Mechanical Ventilator Weight: 92.7 kg Body Mass Index (BMI) 24.5 Finger Stick Blood Glucose 0 Intake and Output for Last 24 Hours 10/24/17 10/25/17 10/26/17 23:59 23:59 23:59 Intake Total 3104.8 / 3104.8 7018.9 / 7018.9 5053.2 / 5053.2 Output Total 1400 / 1400 2685 / 2685 1125 / 1125 Balance 1704.8 / 1704.8 4333.9 / 4333.9 3928.2 / 3928.2 Microbiology Past 72 Hours 10/24/17 10:15 Blood Culture - Preliminary Blood Culture (Wb) - Anticubital Left No growth in 48 hours. 10/24/17 Unknown Gram Stain - Final Bronchial Lavage - Left Middle Lobe Respiratory Culture - Preliminary Yeast Like Organism Mixed Dea 10/24/17 Unknown Gram Stain - Final Bronchial Lavage - Right Middle Lobe Respiratory Culture - Preliminary Yeast Like Organism Mixed Dea 10/24/17 11:25 Gram Stain - Final Sputum, Induced/Lukens Respiratory Culture - Preliminary Yeast Like Organism Mixed Dea 10/24/17 11:20 Urine Culture - Final Urine Catheter - Ernst Culture exhibits no growth. 10/24/17 10:30 Bacteria Detection (PCR) - Final Blood Culture (Wb) - Anticubital Right Coag Negative Staph Blood Culture - Preliminary 10/24/17 11:20 Streptococcus pneumoniae Antigen (M - Final Urine Catheter - Ernst 10/24/17 11:20 Legionella Antigen - Final Urine Catheter - Ernst Laboratory Tests Past 24 Hrs 10/23/17 10/25/17 10/26/17 10:55 08:21 04:45 WBC RBC Hgb Hct MCV MCH MCHC RDW RDW Differential Plt Count MPV Immature Gran % (Auto) Neut % (Auto) Lymph % (Auto) [place] % (Auto) Eos % (Auto) Baso % (Auto) Absolute Neuts (auto) Absolute Lymphs (auto) Total Counted Differential Comment APTT 38.3 H Specimen Type ART Sample Site R Radial pH 7.40 Bicarbonate Actual 26.9 H POC Total CO2 28 Base Excess 2 O2 Saturation 95 O2 % 40 ABG pCO2 43.4 ABG pO2 75 Jermaine Test POS Respiration Rate 16 O2 Delivery Device Vent Minute Volume 8.00 Vent Mode A-C Tidal Volume 500 POC PEEP 8 Blood Gas Notified Whom ICU Blood Gas Notified Time 816 Sodium Potassium Chloride Carbon Dioxide Anion Gap BUN Creatinine Estim Creat Clear Calc Est GFR (MDRD) Af Amer Est GFR (MDRD) Non-Af BUN/Creatinine Ratio Glucose Calcium Whole Bld Vitamin B1 208.4 H 10/26/17 10/26/17 10/26/17 06:36 08:05 08:05 WBC 13.4 H RBC 4.60 Hgb 14.7 Hct 42.9 MCV 93.3 MCH 32.0 MCHC 34.3 RDW 13.1 RDW Differential 44.9 H Plt Count 161 MPV 9.6 Immature Gran % (Auto) 0.900 Neut % (Auto) 85.1 H Lymph % (Auto) 4.0 L [place] % (Auto) 9.4 Eos % (Auto) 0.4 Baso % (Auto) 0.2 Absolute Neuts (auto) 11.4 H Absolute Lymphs (auto) 0.54 L Total Counted Not Reportable Differential Comment SCANNED APTT Specimen Type ART Sample Site L Radial pH 7.40 Bicarbonate Actual 26.8 H POC Total CO2 28 Base Excess 2 O2 Saturation 91 L O2 % 40 ABG pCO2 43.2 ABG pO2 60 L Jermaine Test POS Respiration Rate 16 O2 Delivery Device Vent Minute Volume 9.00 Vent Mode A-C Tidal Volume 500 POC PEEP 5 Blood Gas Notified Whom ICU MD Blood Gas Notified Time 635 Sodium 132 L Potassium 3.5 Chloride 98 Carbon Dioxide 26.0 Anion Gap 8 BUN 16 Creatinine 0.70 Estim Creat Clear Calc 71.02 Est GFR (MDRD) Af Amer 142 Est GFR (MDRD) Non-Af 117 BUN/Creatinine Ratio 23.0 H Glucose 154 H Calcium 7.8 L Whole Bld Vitamin B1 10/26/17 12:05 WBC RBC Hgb Hct MCV MCH MCHC RDW RDW Differential Plt Count MPV Immature Gran % (Auto) Neut % (Auto) Lymph % (Auto) [place] % (Auto) Eos % (Auto) Baso % (Auto) Absolute Neuts (auto) Absolute Lymphs (auto) Total Counted Differential Comment APTT 58.1 H Specimen Type Sample Site pH Bicarbonate Actual POC Total CO2 Base Excess O2 Saturation O2 % ABG pCO2 ABG pO2 Jermaine Test Respiration Rate O2 Delivery Device Minute Volume Vent Mode Tidal Volume POC PEEP Blood Gas Notified Whom Blood Gas Notified Time Sodium Potassium Chloride Carbon Dioxide Anion Gap BUN Creatinine Estim Creat Clear Calc Est GFR (MDRD) Af Amer Est GFR (MDRD) Non-Af BUN/Creatinine Ratio Glucose Calcium Whole Bld Vitamin B1 POC Glucose 10/26/17 10/26/17 10/26/17 12:45 05:34 00:04 POC Glucose 137 H 189 H 126 H Medical Necessity - Tobacco Use Smoking Status: Former smoker Assessment/Plan All Active Problems Alcohol abuse (Acute) Hypertensive encephalopathy syndrome (Acute) Hypertensive emergency (Acute) Acute encephalopathy (Acute) CVA (cerebral vascular accident) (Acute) Unresponsive episode (Acute) The patient is a 77 year old CM with PMH HTN, ETOH abuse was admitted on 10/22/17 with right sided numbness, leg weakness, with SBP > 220 mmHg, then had unresponsive episode on 10/23 and was intubated for airway protection, MRI brain done on admission reported nothing acute, MRA head/neck showed right vert occlusion, EEG done on 10/23/17 did not show any epileptiform discharges, was extubated on 10/24/17 but had hypoxia, needed reintubation, had CTA chest which showed extensive PE, started on heparin drip by ICU team, bronchoscopy done showed severe copious secretions. At present continues to be intubated. Impression Encephalopathy HTNsive urgency R/O Wernicke's encephalopathy ?Seizures Plan -Repeat EEG 10/26/17-likely shows frontal eye movement artefact vs sharp waves, final read pending. -Loaded with Keppra 1 g, and started on Keppra 750 mg BID for prophylaxis. Ativan 1 mg IV PRN -Repeat MRI brain w/o contrast -May need LP to check for CSF cell count, glucose, protein and infection panel if no clinical improvement. Clinically no NR or fever at present. -May benefit from continuous EEG monitoring. -On ASA -W/F DTs -CIWA protocol -Thiamine 100 mg daily -Management of HTN per ICU team/primary team -Discussed the case with Dr. Brewer. Patient being transferred to tertiary center for further NICU care. -PT/OT/ST -GI/DVT prophylaxis -prognosis guarded -Please call with questions if any -Thank you for allowing us to participate in patient's care and management I spent 30 minutes of critical care time in taking history, doing physical examination, reviewing records,coordinating care or counseling the patient and family.
--- NOTE | 2017-10-29 10:35 | EEG ---
- Electroencephalogram This is an 18 channel extended electroencephalogram performed on this 77-year-old male with a history of unresponsiveness. 18 channel electroencephalogram is performed utilizing the International 10-20 electrode placement protocol as well as photic stimulation, and EKG rhythm strip recording. EKG is normal sinus rhythm throughout the recording. Photic stimulation does generate a normal symmetric driving response in the posterior leads. Background activity is 8-10 Hz symmetrically in the posterior leads. There are intermittent bilateral frontal EMG movements consistent with eyeball movements. There are no lateralizing or epileptiform changes noted during this recording. Patient appears to be awake throughout the recording Impression: There appears to be bifrontal artifact, these are not convincingly epileptiform changes. No other lateralizing or epileptiform changes are noted.
--- NOTE | 2017-10-29 10:43 | EEG_ITS ---
- Electroencephalogram This is an 18 channel extended electroencephalogram performed on this 77-year- old male with a history of unresponsiveness. 18 channel electroencephalogram is performed utilizing the International 10-20 electrode placement protocol as well as photic stimulation, and EKG rhythm strip recording. EKG is normal sinus rhythm throughout the recording. Photic stimulation does generate a normal symmetric driving response in the posterior leads. Background activity is 8-10 Hz symmetrically in the posterior leads. There are intermittent bilateral frontal EMG movements consistent with eyeball movements. There are no lateralizing or epileptiform changes noted during this recording. Patient appears to be awake throughout the recording Impression: There appears to be bifrontal artifact, these are not convincingly epileptiform changes. No other lateralizing or epileptiform changes are noted.
== END 2017-10-26 16:35 | disposition short-term general hospital (02) | DRG 264 ==
LOC: ED 08:18 → PCU 10:32 → ICU 10-23 07:49 → PCU 10-23 08:25
PROVIDERS: Internal Medicine Critical Care Medicine; Psychiatry & Neurology Neurology; Admitting Provider Family Medicine; Emergency Provider Emergency Medicine; Family Provider Internal Medicine; PCP Internal Medicine; Visit Provider Internal Medicine
PROC: 0BJ08ZZ Inspection of Tracheobronchial Tree, Via Natural or Artificial Opening Endoscopic (ICD-10-PCS; CPT 31622; principal; 2017-10-24 13:00)
DX: I16.1 Hypertensive emergency (principal); J96.01 Acute respiratory failure with hypoxia; J96.02 Acute respiratory failure with hypercapnia; I26.99 Other pulmonary embolism without acute cor pulmonale; J18.9 Pneumonia, unspecified organism; I67.4 Hypertensive encephalopathy; F10.10 Alcohol abuse, uncomplicated; Z87.891 Personal history of nicotine dependence; I10 Essential (primary) hypertension; J98.09 Other diseases of bronchus, not elsewhere classified
CPT/HCPCS: 31500; 31720; 36415; 36600; 70450; 70498; 70544; 70549; 70551; 71045; 71275; 80048; 80061; 82140; 82550; 82607; 82803; 82962; 83735; 84100; 84425; 84443; 84478; 84484; 85025; 85610; 85730; 87040; 87070; 87086; 87149; 87205; 87449; 87641; 89050; 93005; 93306; 94002; 94003; 94660; 95819; 95831; 97802; 97803; 99152; 99153; 99251; 99283; A9585; J7030; J7040; J7050; J7120; Q9957; Q9967; A4216; C8929; G0463; J7799